=== PATIENT | female | born 1945 | race Caucasian/White ===

== ENCOUNTER 2024-09-02 12:02 | Inpatient (IN) | payer BC, OTHER ==
[~2024-09-02] VITALS: Ht 167.6 cm; Wt 63.0 kg
[~2024-09-02 12:02] MED LIST: BUSP10TA90 PO; FLUT1INH6 IN; MONT5CHW12 PO; OXYB5TAB14 PO; SERT-206 PO; TIOTCAP IN
--- NOTE | 2024-09-02 12:30 | ED.PDOC ---
Altered Mental Status HPI Comments 79-year-old female with PMHx Seizures, COPD brought in by EMS presents with a chief complaint of ALOC. Patient lives in a [facility] facility and is normally A/Ox4 GCS 15 per staff, but was found today to be only alert and awake, but not oriented. Patient responds "yes" to every question being asked of her. Per EMS, they called family whom states that this has happened to patient before and it was because of an UTI. Patient unable to provide further medical information at this time. Chief Complaint: ALOC Time Seen by MD: 12:22 Primary Care Provider: UNKNOWN Reviewed Notes: Nurses Notes, Rehabilitation Team Lead Notes, Medications, Allergies Allergies: Coded Allergies: Tramadol (Verified Allergy, Unknown, 09/02/24) Home Meds Reported Medications Tiotropium [place] Monohydrate (Spiriva Handihaler) 18 Mcg Cap, 18 MCG IN, CAP 04/08/19 Fluticasone Furoate-Vilanterol (Breo Ellipta 200-25 Mcg/INH) 1 Inh Inh, 1 INH IN, INHALER 04/08/19 Montelukast Sodium (Singulair) 5 Mg Chw, 1 TAB PO DAILY, #30 TAB 5 Refills 04/08/19 Sertraline Hcl (Sertraline Hcl) 50 Mg Tab, 75 MG PO DAILY for 30 Days, MG 04/07/19 Buspirone Hcl (Buspirone Hcl) 10 Mg Tab, 7.5 MG PO Q12HR for ANXIETY for 30 Days, MG 04/07/19 Oxybutynin Chloride (Oxybutynin Chloride) 5 Mg Tab, 5 MG PO DAILY, TAB 04/07/19 Information Source: Emergency Med Personnel Mode of Arrival: EMS Severity: Unable to Care for Self Timing: Hours Duration: Since onset Prehospital treatment: None Quality: Change in Behavior Recent: None History of: None Associated Signs and Symptoms: None Past Medical History PAST MEDICAL HISTORY: Asthma, HTN Surgical History: Unobtainable 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 Family History Family History: Unobtainable Social History Smoker: Unobtainable Alcohol: Unobtainable Drugs: Unobtainable Lives In: Assisted Care Constitutional: denies: chills, diaphoresis, fatigue, fever, malaise, sweats, weakness, others EENTM: denies: blurred vision, double vision, ear bleeding, ear discharge, ear drainage, ear pain, ear ringing, eye pain, eye redness, hearing loss, mouth pain, mouth swelling, nasal discharge, nose bleeding, nose congestion, nose pain, photophobia, tearing, throat pain, throat swelling, voice changes, others Respiratory: denies: cough, hemoptysis, orthopnea, SOB at rest, shortness of breath, SOB with excertion, stridor, wheezing, others Cardiovascular: denies: chest pain, dizzy spells, diaphoresis, Dyspnea on exertion, edema, irregular heart beat, left arm pain, lightheadedness, palpitations, PND, syncope, others Gastrointestinal: denies: abdomen distended, abdominal pain, blood streaked bowels, constipated, diarrhea, dysphagia, difficulty swallowing, hematemesis, melena, nausea, poor appetite, poor fluid intake, rectal bleeding, rectal pain, vomiting, others Genitourinary: denies: abnormal vagina bleeding, burning, dyspareunia, dysuria, flank pain, frequency, hematuria, incontinence, pain, , vagina discharge, urgency, others Neurological: denies: dizziness, fainting, headache, left sided numbness, left sided weakness, numbness, paresthesia, pre-existing deficit, right sided numbness, right sided weakness, seizure, speech problems, tingling, tremors, weakness, others Musculoskeletal: denies: back pain, gout, joint pain, joint swelling, muscle pain, muscle stiffness, neck pain, others Integumetry: denies: bruises, change in color, change in hair/nails, dryness, laceration, lesions, lumps, rash, wounds, others Allergic/Immunocompromised: denies: Difficulty Healing, Frequent Infections, Hives, Itching, others Hematologic/Lymphatic: denies: anemia, blood clots, easy bleeding, easy bruising, swollen glands, others Endocrine: denies: excessive hunger, excessive sweating, excessive thirst, excessive urination, flushing, intolerance to cold, intolerance to heat, unexplained weight gain, unexplained weight loss, others Psychiatric: denies: anxiety, bipolar disorder, depression, hopeless, panic disorder, schizophrenia, sleepless, suicidal, others Unable to Obtain due to: Altered Mental Status All Other Systems: Reviewed and Negative Physical Exam General Appearance: Moderate Distress HEENT: Normal ENT Inspection, Pharynx Normal, TMs Normal Neck: Full Range of Motion, Non-Tender, Normal, Normal Inspection Respiratory: Chest Non-Tender, Lungs Clear, No Accessory Muscle Use, No Respiratory Distress, Normal Breath Sounds Cardiovascular: No Edema, No JVD, No Murmur, No Gallop, Normal Peripheral Pulses, Regular Rate/Rhythm Breast Exam: Deferred Gastrointestinal: No Organomegaly, No Pulsatile Mass, Normal Bowel Sounds, Soft, Suprapubic, Tenderness Genitalia: Deferred Pelvic: Deferred Rectal: Deferred Extremities: No calf tenderness, Normal capillary refill, Normal inspection, Normal range of motion, Non-tender, No pedal edema Musculoskeletal : Apperance: Normal 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 Was a procedure done?: No Differential Diagnosis (ALOC) Differential Diagnosis: Dehydration, Other (UTI, sepsis) X-Ray, Labs, Meds, VS Vital Signs Date Time Temp Pulse Resp B/P (MAP) Pulse Ox O2 Delivery O2 Flow Rate FiO2 09/02/24 12:30 88 09/02/24 12:05 98.3 96 18 141/80 (100) 99 Lab Test 09/02/24 15:21 09/02/24 13:21 Range/Units Lactic Acid Level 1.7 2.3 *H 0.4-2.0 mmol/L White Blood Count 12.2 H 4.4-10.8 10^3/uL Red Blood Count 4.10 4.0-5.20 10^6/uL Hemoglobin 13.4 12.2-16.2 g/dL Hematocrit 40.0 36.0-46.0 % Mean Corpuscular Volume 97.5 80.0-100.0 fL Mean Corpuscular Hemoglobin 32.7 H 28.0-32.0 pg Mean Corpuscular Hemoglobin Concent 33.5 32.0-36.0 g/dL Red Cell Distribution Width 13.5 11.8-14.3 % Platelet Count 288 140-450 10^3/uL Mean Platelet Volume 7.5 6.9-10.8 fL Neutrophils (%) (Auto) 88.0 H 37.0-80.0 % Lymphocytes (%) (Auto) 8.8 L 10.0-50.0 % Monocytes (%) (Auto) 2.9 0.0-12.0 % Eosinophils (%) (Auto) 0.1 0.0-7.0 % Basophils (%) (Auto) 0.2 0.0-2.0 % Neutrophils # (Auto) 10.7 H 1.6-8.6 10 ^3/uL Lymphocytes # (Auto) 1.1 0.4-5.4 10 ^3/uL Monocytes # (Auto) 0.4 0-1.3 10 ^3/uL Eosinophils # (Auto) 0 0-0.8 10 ^3/uL Basophils # (Auto) 0 0-0.2 10 ^3/uL Nucleated Red Blood Cells 0.0 % Sodium Level 140 136-145 mmol/L Potassium Level 4.2 3.5-5.1 mmol/L Chloride Level 106 98-107 mmol/L Carbon Dioxide Level 25 20-31 mmol/L Anion Gap 9 5-15 Blood Urea Nitrogen 11 9-23 mg/dL Creatinine 0.81 0.550-1.02 mg/dL Glomerular Filtration Rate Calc 75 >90 mL/min BUN/Creatinine Ratio 13.6 10.0-20.0 Serum Glucose 137 H 74-106 mg/dL Calcium Level 10.3 8.7-10.4 mg/dL Head CT Scan Impression: No evidence of acute intracranial abnormality Chest X-Ray Impression: Pulmonary vascular congestion The CBC shows an elevated white blood cell count of 12.2 The chemistry panel is within normal limits The patient's lactic acid level went from 2.3 down to 1.7 We are continuing the fluids on this patient After the patient had blood cultures x2 drawn the patient was started on Rocephin IV piggyback The patient was being admitted at this time Images Reviewed?: Images reviewed and evaluated by me Time of 1ST Reevaluation: 12:52 Reevaluation 1ST: Unchanged Patient Education/Counseling: Diagnosis, Treatment, Prognosis Family Education/Counseling: Diagnosis, Treatment, Prognosis Departure 1 Departure Time of Disposition: 16:20 Impression: Primary Impression: Altered mental status Qualified Codes: R41.82 - Altered mental status, unspecified Additional Impression: Sepsis secondary to UTI Disposition: ADMITTED INPATIENT Admit to: Tele Condition: Fair Critical Care Note Critical Care Time?: Yes (45 min-critical care time only) Stability Stability form required: Yes Unstable for transfer: Telemetry monitoring (Telemetry monitoring required), ED Physician Assesment (Clinical assesment) Heart Score Heart Score: Heart Score Response (Comments) Value History N/A 0 EKG N/A 0 Age N/A 0 Risk Factors N/A 0 Troponin N/A 0 Total 0 I personally scribed for SONYA DELEON MD ([email or web address]) on 09/02/24 at 12:30. Electronically submitted by Mainor Morales ([email or web address]). I personally scribed for SONYA DELEON MD ([email or web address]) on 09/02/24 at 13:00. Electronically submitted by Mainor Morales ([email or web address]). I personally scribed for SONYA DELEON MD ([email or web address]) on 09/02/24 at 13:03. Electronically submitted by Mainor Morales ([email or web address]). SONYA DELEON MD Sep 02, 2024 12:30
--- NOTE | 2024-09-02 12:58 | DVH ---
EXAM: CT HEAD WITHOUT CONTRAST INDICATION: aloc TECHNIQUE: CT of the head without intravenous contrast. Coronal and sagittal reformatted images are submitted. Radiation Dose : 1. Head: CT Dose: CTDI volume is 53.4 mGy. Dose-length product is 971.9 mGy*cm The dose indicators for CT are the volume Computed Tomography (CT) Dose Index (CTDIvol) and the Dose Length Product (DLP), and are measured in units of mGy and mGy-cm, respectively. These indicators are not patient dose, but values generated from the CT scanner acquisition factors. The report includes radiation exposure data for exposures received during this examination. All CT scans at this medical facility are performed using dose modulation techniques as appropriate to a performed exam including the following: Automated exposure control was utilized; adjustment of the MA and/or KV according to patient size; and use of iterative reconstruction technique. COMPARISON: None FINDINGS: There is no evidence of acute intracranial hemorrhage, extra-axial collection, mass effect, midline s hift, herniation or hydrocephalus. The ventricles, sulci and cisterns are age appropriate. The rangel-white differentiation is intact. The visualized paranasal sinuses and mastoid air cells are clear. No depressed calvarial fracture. The surrounding soft tissues are unremarkable. IMPRESSION: 1. No evidence of acute intracranial abnormality.
--- NOTE | 2024-09-02 13:01 | DVH ---
CHEST RADIOGRAPH Indication: aloc Technique: Single frontal view of the chest was obtained COMPARISON: None FINDINGS: Lines and Tubes: None Lungs: Congestion Pleura: No effusion. No pneumothorax. Cardiomediastinal contours: Unremarkable Bones: Unremarkable IMPRESSION: Pulmonary vascular congestion
[2024-09-02 13:43] LABS: Basophils # (auto) 0 10 ^3/uL (0-0.2); Basophils % (auto) 0.2 % (0.0-2.0); Eosinophils # (auto) 0 10 ^3/uL (0-0.8); Eosinophils % (auto) 0.1 % (0.0-7.0); Hemoglobin 13.4 g/dL (12.2-16.2); Lymphocytes # (auto) 1.1 10 ^3/uL (0.4-5.4); Lymphocytes % (auto) 8.8 % (10.0-50.0); Mean Corpuscular Hemoglobin 32.7 pg (28.0-32.0); Mean Corpuscular Hgb Conc. 33.5 g/dL (32.0-36.0); Mean Corpuscular Volume 97.5 fL (80.0-100.0); Monocytes # (auto) 0.4 10 ^3/uL (0-1.3); Monocytes % (auto) 2.9 % (0.0-12.0); Neutrophils # (auto) 10.7 10 ^3/uL (1.6-8.6); Platelet Count (auto) 288 10^3/uL (140-450); Red Cell Distribution Width 13.5 % (11.8-14.3); White Blood Cell 12.2 10^3/uL (4.4-10.8)
[2024-09-02 13:49] LABS: Chloride 106 mmol/L (98-107); Potassium 4.2 mmol/L (3.5-5.1); Sodium 140 mmol/L (136-145)
[2024-09-02 13:50] LABS: Anion Gap 9 (5-15); Calcium 10.3 mg/dL (8.7-10.4); Carbon Dioxide 25 mmol/L (20-31)
[2024-09-02 13:55] LABS: BUN/Creatinine Ratio 13.6 (10.0-20.0); Blood Urea Nitrogen 11 mg/dL (9-23)
[2024-09-02 13:56] LABS: Glucose 137 mg/dL (74-106)
[2024-09-02 14:05] LABS: Lactic Acid w/Reflex 2.3 mmol/L (0.4-2.0)
[2024-09-02] MEDS ORDERED: NITROGLYCERIN 0.4 MG SL TAB SL PRN (18:00)
[2024-09-02] MEDS ORDERED: MORPHINE SULFATE INJ 2 MG/ml SYRG IV PRN (18:00)
--- NOTE | 2024-09-02 18:02 | DVHHP2 ---
Admitting Diagnosis: Admission date :09/02/24 AL History of Present Illness Patient is a 79-year-old female with a previous medical history of COPD and seizures was brought by EMS today with a CC of ALOC. Per staff at [facility] the patient lives at patient is normally A/O x 4 GCS 15 but was found today to only be alert and awake not oriented. Patient responds "yes" to every question being asked to her. EMS called family who states that something similar has happened to her in the past and it was due to UTI. Patient unable provide any other information at this time. While in the emergency department the patient was evaluated by the provider, As per provider: Labs, vital signs, and imagining monitored. Patient will be admitted for further evaluation and treatment. I discussed admission with the patient/family and is in agreement to treatment plan Allergies: Coded Allergies: Tramadol (Verified Allergy, Unknown, 09/02/24) Home Meds Reported Medications Fexofenadine-Pseudoephedrine (MARIA C-D 24 HOUR ALLERGY) 24 Hour Tab, 24 HOUR PO DAILY, TAB 09/02/24 Famotidine (PEPCID TABLET) 20 Mg Tb, 20 MG PO DAILY, TAB 09/02/24 Midodrine Hcl (Midodrine Hcl) 2.5 Mg Tab, 1 TAB PO BID 09/02/24 Sertraline Hcl (Sertraline Hcl) 100 Mg Tab, 1 TAB PO DAILY 09/02/24 Montelukast Sodium (MONTELUKAST SODIUM) 10 Mg Tab, 1 TAB PO DAILY 09/02/24 Solifenacin Succinate (Solifenacin Succinate) 10 Mg Tab, 5 MG PO DAILY 09/02/24 Levetiracetam (Levetiracetam) 1,000 Mg Tab, 1000 MG PO BID 09/02/24 Tiotropium [place] Monohydrate (Spiriva Handihaler) 18 Mcg Cap, 18 MCG IN DAILY, CAP 04/08/19 Fluticasone Furoate-Vilanterol (Breo Ellipta 200-25 Mcg/INH) 1 Inh Inh, 1 PUFF IN DAILY, INHALER 04/08/19 Buspirone Hcl (Buspirone Hcl) 10 Mg Tab, 7.5 MG PO Q12HR for ANXIETY for 30 Days, MG 04/07/19 Current Medications Current Medications Medications (Trade) Dose Ordered Sig/Jaime Route PRN Reason Start Time Stop Time Status Last Admin Enoxaparin Sodium (Lovenox) 40 mg DAILY SC 09/03/24 10:00 09/03/24 10:03 Lorazepam (Ativan Inj) 1 mg Q5MINP PRN IV SEIZURES 09/02/24 21:00 Lorazepam (Ativan Inj) 1 mg ONCE PRN IV MRI 09/02/24 21:00 Pantoprazole Sodium (Protonix) 40 mg DAILY IV 09/03/24 16:30 09/03/24 18:32 Buspirone HCl (Buspar Tablet) 7.5 mg Q12HR PO 09/03/24 22:00 Sertraline HCl (Zoloft) 100 mg DAILY PO 09/04/24 10:00 Patient Own Medication 5 mg DAILY PO 09/04/24 10:00 09/03/24 18:41 DC Ipratropium [place] (Atrovent Medneb) 0.5 mg Q6HR NEB 09/04/24 00:00 Oxybutynin Chloride (Ditropan Tablet) 5 mg BID PO 09/03/24 22:00 Review of Systems Constitutional: denies chills, denies fever, denies malaise Eyes: denies eye pain, denies vision change ENT: denies ear pain, denies headache, denies nasal congestion, denies painful swallowing, denies voice change Cardiovascular: denies chest pain, denies edema, denies orthopnea, denies palpitations, denies paroxysmal nocturnal dyspnea Respiratory: denies cough, denies shortness of breath Gastrointestinal: denies constipation, denies diarrhea, denies nausea, denies vomiting Genitourinary: denies dysuria, denies frequent urination, denies urethral discharge Musculoskeletal: denies back pain, denies joint pain, denies muscle pain Skin: denies bruising, denies itching, denies rash Neurological: denies focal weakness, denies headache, denies sensory changes Psychiatric: denies anxiety, denies depression Endocrine: denies polydipsia, denies polyuria Hematologic/Lymphatic: denies easy bleeding, denies easy bruising, denies enlarged lymph nodes Allergic/Immunologic: denies allergy, denies hives Vital Signs Vital Signs Date Time Temp Pulse Resp B/P (MAP) Pulse Ox O2 Delivery O2 Flow Rate FiO2 09/03/24 17:00 98.8 101 21 108/64 (79) 100 98.8 09/03/24 08:20 Nasal Cannula* 2 28 Physical Exam General Appearance: alert, no distress HEENT: EOMI, PERRLA, normal external inspect of ears, no icterus, no nasal drainage Neck: no carotid bruit, no jugular venous distention (JVD), no lymphadenopathy Chest: normal thorax Respiratory: clear to auscultation, normal air movement Cardiovascular: regular rate and rhythm, no diastolic murmur, no jugular venous distention (JVD), no rub, no systolic murmur Abdominal: soft, no hepatomegaly, no mass, no splenomegaly, no tenderness Genitourinary: grossly normal external Musculoskeletal: no joint tenderness, no swelling Extremities: normal pulses, no calf tenderness, no clubbing, no cyanosis, no edema Skin: no bruising, no jaundice, no rash Neurological: alert, No focal deficit Results Labs Test 09/03/24 05:08 09/02/24 20:08 09/02/24 17:57 09/02/24 15:21 Range/Units White Blood Count 12.2 H 4.4-10.8 10^3/uL Red Blood Count 4.16 4.0-5.20 10^6/uL Hemoglobin 13.4 12.2-16.2 g/dL Hematocrit 40.7 36.0-46.0 % Mean Corpuscular Volume 97.9 80.0-100.0 fL Mean Corpuscular Hemoglobin 32.2 H 28.0-32.0 pg Mean Corpuscular Hemoglobin Concent 32.9 32.0-36.0 g/dL Red Cell Distribution Width 13.6 11.8-14.3 % Platelet Count 269 140-450 10^3/uL Mean Platelet Volume 7.7 6.9-10.8 fL Neutrophils (%) (Auto) 88.0 H 37.0-80.0 % Lymphocytes (%) (Auto) 6.0 L 10.0-50.0 % Monocytes (%) (Auto) 4.7 0.0-12.0 % Eosinophils (%) (Auto) 0.1 0.0-7.0 % Basophils (%) (Auto) 1.2 0.0-2.0 % Neutrophils # (Auto) 10.8 H 1.6-8.6 10 ^3/uL Lymphocytes # (Auto) 0.7 0.4-5.4 10 ^3/uL Monocytes # (Auto) 0.6 0-1.3 10 ^3/uL Eosinophils # (Auto) 0 0-0.8 10 ^3/uL Basophils # (Auto) 0.1 0-0.2 10 ^3/uL Nucleated Red Blood Cells 0.0 % Sodium Level 141 136-145 mmol/L Potassium Level 3.7 3.5-5.1 mmol/L Chloride Level 105 98-107 mmol/L Carbon Dioxide Level 25 20-31 mmol/L Anion Gap 11 5-15 Blood Urea Nitrogen 10 9-23 mg/dL Creatinine 0.79 0.550-1.02 mg/dL Glomerular Filtration Rate Calc 77 >90 mL/min BUN/Creatinine Ratio 12.7 10.0-20.0 Serum Glucose 153 H 74-106 mg/dL Hemoglobin A1c < 4.0 <5.7 % A1C Calcium Level 9.5 8.7-10.4 mg/dL Total Bilirubin 0.5 0.2-1.0 mg/dL Aspartate Amino Transferase (AST) 25 13-40 U/L Alanine Aminotransferase (ALT) 13 7-40 U/L Alkaline Phosphatase 70 46-116 U/L Total Protein 6.9 5.7-8.2 g/dL Albumin 4.6 3.2-4.8 g/dL POC Glucose 166 H 70-106 mg/dl Urine Color Yellow Yellow Urine Clarity Clear Clear Urine pH 6.0 5.0-9.0 Urine Specific [place] 1.020 1.001-1.035 Urine Protein Negative Negative Urine Ketones 2+ H Negative Urine Blood Negative Negative /uL Urine Nitrite Negative Negative Urine Bilirubin Negative Negative Urine Urobilinogen Normal Negative mg/dL Urine Leukocyte Esterase Negative Negative /uL Urine RBC <1 0 - 4 /hpf Urine Microscopic WBC < 1 0-5 /HPF Urine Squamous Epithelial Cells Few <5 /hpf Urine Bacteria None seen None Seen /hpf Urine Mucus Few None Seen Urine Glucose Normal Normal mg/dL Lactic Acid Level 1.7 0.4-2.0 mmol/L Microbiology Date/Time Source Procedure Growth Status 09/02/24 17:57 Urine - Catheterized Urine Culture - Preliminary Resulted 09/02/24 13:21 Blood Blood Culture - Preliminary NO GROWTH AFTER 24 HOURS OF INCUBATION. Resulted Plan 1. ALOC Plan: Monitor, neurology consult 2. Metabolic encephalopathy Plan: Monitor, CT brain, EEG, MRI of brain 3. Status epileptics Plan: Monitor, UA 4. Subclinical seizure Plan: Monitor, antiepileptics 5. Acute cystitis without hematuria Plan: Monitor, PPI,, DVT relaxes 6. Lactic acidosis most likely from seizure Plan: Monitor Plan discussed with: Patient, Other LIBBY GLASER NP Sep 02, 2024 18:02
[2024-09-02 18:20] LABS: Urine Bacteria None Seen /hpf (None Seen)
[2024-09-02 18:29] LABS: Urine Blood Negative /uL (Negative); Urine Clarity Clear (Clear); Urine Color Yellow (Yellow); Urine Mucus FEW (None Seen); Urine Protein, UAD Negative (Negative); Urine Squamous Epithelial Cell FEW /hpf (<5); Urine Urobilinogen Normal (Negative); Urine WBC < 1 /HPF (0-5)
[2024-09-02] MEDS: levETIRAcetam 1000 mg/100ml 100 ML IV SCH (18:31)
[2024-09-02] MEDS: cefTRIAXone 1GM/50ML D5W 50 ML IV SCH (18:31)
[2024-09-02 18:42] VITALS: PULSE 116; RESP 23; O2SAT 93
--- NOTE | 2024-09-02 19:05 | ECG ---
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
[2024-09-02 19:49] VITALS: PULSE 114; RESP 15; O2SAT 95
--- NOTE | 2024-09-02 19:59 | DVHINCON2 ---
Date of service: Sep 02, 2024 Referring Physician Tiffany Reason for Consultation ALOC History of Present Illness Ms. Ivory is a 79 years old female with a history of hypertension, asthma, the patient was brought to the [facility] on 09/02/2024 with a chief company of altered mental status, at that time, she was awake, possibly responds to verbal stimuli, but she does not follow, she does not vocalize, the history is obtained from her niece, who is the [id number], I have also talked to her nurse and reviewed the chart Baseline of this lady is mentally normal, she lives in a senior facility, she was able to use iPad to text message and the last time she communicated her niece was 09/01/2024 7:45 p.m. because she did not respond to her niece, her niece request the director of the facility to check on her and she was found to be mentally altered, mumble voice. Since 2019, this is the 7th similar event. The patient was can be mentally altered very quickly, but this no convulsion noticed, the patient was went through MRI in the lot of testing, but etiology remains on other identified, seizure was suspected and she has been on Keppra 1000 mg [address] She sees Dr. Rodriguez, a local neurologist BUN/CR, 09/02/2024: WBC: 1, urine leukocyte esterase: Negative WBC/HB/PLT/MCV, 09/02/2024: 12.2/13.4/288/97.5 BMP, 09/02/2024: Unremarkable Glucose, 09/02/2024: 137 Lactic acid, 09/02/2024: 2.3/1.7 Chest x-ray, 09/02/2024: Pulmonary vascular congestion CT head, 09/02/2024: No evidence of acute intracranial abnormality Past Medical History Hypertension, asthma Past Surgical History Knee replacement, lumbar spine surgery x 3, pain stimulator for bowel and bladder her control Family History Longevity Social History She is not a tobacco smoker, no history of alcohol or recreational substance abuse Allergies: Coded Allergies: Tramadol (Verified Allergy, Unknown, 09/02/24) Home Meds Reported Medications Tiotropium Tropic Monohydrate (Spiriva Handihaler) 18 Mcg Cap, 18 MCG IN, CAP 04/08/19 Fluticasone Furoate-Vilanterol (Breo Ellipta 200-25 Mcg/INH) 1 Inh Inh, 1 INH I N, INHALER 04/08/19 Montelukast Sodium (Singulair) 5 Mg Chw, 1 TAB PO DAILY, #30 TAB 5 Refills 04/08/19 Sertraline Hcl (Sertraline Hcl) 50 Mg Tab, 75 MG PO DAILY for 30 Days, MG 04/07/19 Buspirone Hcl (Buspirone Hcl) 10 Mg Tab, 7.5 MG PO Q12HR for ANXIETY for 30 Days, MG 04/07/19 Oxybutynin Chloride (Oxybutynin Chloride) 5 Mg Tab, 5 MG PO DAILY, TAB 04/07/19 Current Medications Current Medications Medications (Trade) Dose Ordered Sig/Jaime Route PRN Reason Start Time Stop Time Status Last Admin Acetaminophen/ Hydrocodone Bitart ([place] 5/325MG Tab) 1 tab Q4HP PRN PO MODERATE PAIN (4-6 PAIN SCALE) 09/02/24 18:00 Enoxaparin Sodium (Lovenox) 40 mg DAILY SC 09/03/24 10:00 Acetaminophen (Tylenol Tablet) 650 mg Q6HP PRN PO PAIN SCALE 1-3 OR TEMP>100.4 09/02/24 18:00 Nitroglycerin (Ntrostat Sublingual) 0.4 mg Q5MINP PRN SL FOR CHEST PAIN 09/02/24 18:00 Morphine Sulfate 2 mg Q30M PRN IV FOR CHEST PAIN 09/02/24 18:00 Ceftriaxone Sodium 50 ml @ 100 mls/hr DAILY IV 09/02/24 18:00 09/02/24 18:31 Levetiracetam 100 ml @ 400 mls/hr Q12H IV 09/02/24 18:21 09/02/24 18:31 Review of Systems As above, the other systems are Vital Signs Vital Signs Date Time Temp Pulse Resp B/P (MAP) Pulse Ox O2 Delivery O2 Flow Rate FiO2 09/02/24 18:45 116 23 116/62 (80) 93 09/02/24 18:42 Room Air* 0 21 09/02/24 15:52 97.8 97.8 Physical Exam GENERAL EXAM: General: the patient is well developed and nourished. No acute distress. HEENT: Normocephalic, neck is supple, no carotid bruits. No mass. RESPIRATORY: Normal respiratory effort with symmetrical lung expansion. Lungs clear to auscultation. CARDIOVASCULAR: Regular rate and rhythm with no murmurs. S1, S2. ABDOMEN: Soft, nontender, normal bowel sound NEUROLOGICAL: MENTAL STATUS: HPI SPEECH, LANGUAGE, HIGHER CORTICAL FUNCTION: HPI CRANIAL NERVES: #2: Intact visual blake to confrontation. #3,4,6: Pupils are equal, round and reactive. EOMs full and conjugate. No nyst agmus. #5: Facial sensation intact in all three divisions bilaterally. Mandibular strength intact. #7: Facial muscles symmetrical and strength intact. #8: Deferred. #9,10: Deferred #11: Deferred #12: Tongue midline. No fasciculations or atrophy. SENSATION: Responds to light touch MOTOR: Normal tone in the upper and lower extremity. Normal muscle bulk. No fasciculations. No abnormal movements or posturing. Move the arms and legs a little bit REFLEXES: Deep tendon reflexes normal and symmetrical. No pathological reflexes. CEREBELLAR/COORDINATION: Deferred GAIT/STATION: deferred. Labs/Diagnostic Data Labs Test 09/02/24 17:57 09/02/24 15:21 09/02/24 13:21 Range/Units Urine Color Yellow Yellow Urine Clarity Clear Clear Urine pH 6.0 5.0-9.0 Urine Specific [place] 1.020 1.001-1.035 Urine Protein Negative Negative Urine Ketones 2+ H Negative Urine Blood Negative Negative /uL Urine Nitrite Negative Negative Urine Bilirubin Negative Negative Urine Urobilinogen Normal Negative mg/dL Urine Leukocyte Esterase Negative Negative /uL Urine RBC <1 0 - 4 /hpf Urine Microscopic WBC < 1 0-5 /HPF Urine Squamous Epithelial Cells Few <5 /hpf Urine Bacteria None seen None Seen /hpf Urine Mucus Few None Seen Urine Glucose Normal Normal mg/dL Lactic Acid Level 1.7 0.4-2.0 mmol/L White Blood Count 12.2 H 4.4-10.8 10^3/uL Red Blood Count 4.10 4.0-5.20 10^6/uL Hemoglobin 13.4 12.2-16.2 g/dL Hematocrit 40.0 36.0-46.0 % Mean Corpuscular Volume 97.5 80.0-100.0 fL Mean Corpuscular Hemoglobin 32.7 H 28.0-32.0 pg Mean Corpuscular Hemoglobin Concent 33.5 32.0-36.0 g/dL Red Cell Distribution Width 13.5 11.8-14.3 % Platelet Count 288 140-450 10^3/uL Mean Platelet Volume 7.5 6.9-10.8 fL Neutrophils (%) (Auto) 88.0 H 37.0-80.0 % Lymphocytes (%) (Auto) 8.8 L 10.0-50.0 % Monocytes (%) (Auto) 2.9 0.0-12.0 % Eosinophils (%) (Auto) 0.1 0.0-7.0 % Basophils (%) (Auto) 0.2 0.0-2.0 % Neutrophils # (Auto) 10.7 H 1.6-8.6 10 ^3/uL Lymphocytes # (Auto) 1.1 0.4-5.4 10 ^3/uL Monocytes # (Auto) 0.4 0-1.3 10 ^3/uL Eosinophils # (Auto) 0 0-0.8 10 ^3/uL Basophils # (Auto) 0 0-0.2 10 ^3/uL Nucleated Red Blood Cells 0.0 % Sodium Level 140 136-145 mmol/L Potassium Level 4.2 3.5-5.1 mmol/L Chloride Level 106 98-107 mmol/L Carbon Dioxide Level 25 20-31 mmol/L Anion Gap 9 5-15 Blood Urea Nitrogen 11 9-23 mg/dL Creatinine 0.81 0.550-1.02 mg/dL Glomerular Filtration Rate Calc 75 >90 mL/min BUN/Creatinine Ratio 13.6 10.0-20.0 Serum Glucose 137 H 74-106 mg/dL Calcium Level 10.3 8.7-10.4 mg/dL Assessment Altered mental status Metabolic encephalopathy Status epileptics Subclinical seizure Other central nervous system etiology Lactic acidosis Plan/Recommendation Monitoring Supportive treatment Telemetry UDS EEG MR brain scan Keppra 1000 mg b.i.d. Ativan for seizure breakthrough More recommendation per clinical course Progress: Poor This medical document was created using an electronic medical record system with [employer] dictation system. Although this document has been carefully reviewed, there may still be some phonetic and typographical errors. These areas are purely typographical due to imperfections of the software programs, and do not reflect any compromise in the patient's medical care. Plan discussed with: Other TYREL SCOTT MD Sep 02, 2024 19:59
[2024-09-02] MEDS ORDERED: LORazepam 2MG/ML-1ML VIAL IV PRN ×2 (21:00)
[2024-09-02] MEDS ORDERED: LEVE100020 PO (22:05)
[2024-09-02] MEDS ORDERED: SERT-160 PO (22:05)
[2024-09-02] MEDS ORDERED: MIDO2.5T3 PO (22:05)
[2024-09-02] MEDS ORDERED: MONT-8 PO (22:05)
[2024-09-02] MEDS ORDERED: SOLI10TA39 PO (22:05)
[2024-09-02] MEDS ORDERED: FEXO24TA10 PO (22:07)
[2024-09-02] MEDS ORDERED: FAMO20TA10 PO (22:07)
[2024-09-02 22:30] VITALS: BP 136/74; PULSE 105; RESP 20; TEMP 97.8; O2SAT 94
[2024-09-03] VITALS (7 sets, daily range): BP systolic 108–134; BP diastolic 64–71; PULSE 96–106; RESP 20–21; TEMP 97.7–100.4; O2SAT 94–100
[2024-09-03 06:03] LABS: Basophils # (auto) 0.1 10 ^3/uL (0-0.2); Basophils % (auto) 1.2 % (0.0-2.0); Eosinophils # (auto) 0 10 ^3/uL (0-0.8); Eosinophils % (auto) 0.1 % (0.0-7.0); Hematocrit 40.7 % (36.0-46.0); Hemoglobin 13.4 g/dL (12.2-16.2); Lymphocytes # (auto) 0.7 10 ^3/uL (0.4-5.4); Mean Corpuscular Hemoglobin 32.2 pg (28.0-32.0); Mean Corpuscular Hgb Conc. 32.9 g/dL (32.0-36.0); Mean Corpuscular Volume 97.9 fL (80.0-100.0); Monocytes # (auto) 0.6 10 ^3/uL (0-1.3); Monocytes % (auto) 4.7 % (0.0-12.0); Neutrophils # (auto) 10.8 10 ^3/uL (1.6-8.6); Platelet Count (auto) 269 10^3/uL (140-450); Red Blood Cells 4.16 10^6/uL (4.0-5.20); Red Cell Distribution Width 13.6 % (11.8-14.3); White Blood Cell 12.2 10^3/uL (4.4-10.8)
[2024-09-03 06:26] LABS: Alanine Aminotransferase 13 U/L (7-40); Albumin 4.6 g/dL (3.2-4.8); Alkaline Phosphatase 70 U/L (46-116); Anion Gap 11 (5-15); Aspartate Aminotransferase 25 U/L (13-40); BUN/Creatinine Ratio 12.7 (10.0-20.0); Bilirubin, Total 0.5 mg/dL (0.2-1.0); Blood Urea Nitrogen 10 mg/dL (9-23); Calcium 9.5 mg/dL (8.7-10.4); Carbon Dioxide 25 mmol/L (20-31); Chloride 105 mmol/L (98-107); Glucose 153 mg/dL (74-106); Potassium 3.7 mmol/L (3.5-5.1); Sodium 141 mmol/L (136-145); Total Protein 6.9 g/dL (5.7-8.2)
[2024-09-03] MEDS: ENOXAPARIN SOD 40 MG/0.4 ML SYRINGE SC SCH (10:03)
--- NOTE | 2024-09-03 16:22 | DVHPN2 ---
Progress Note - Dictate Date Seen: Sep 03, 2024 Medical Necessity Reason Pt with a Central, PICC or Fol: No vital signs Vital Sign Date Time Temp Pulse Resp B/P (MAP) Pulse Ox O2 Delivery O2 Flow Rate FiO2 09/03/24 08:20 103 09/03/24 08:20 Nasal Cannula* 2 28 09/03/24 07:30 98.9 98.9 09/03/24 05:00 20 121/65 (83) 96 Total Intake and Output 09/02/24 09/02/24 09/03/24 15:00 23:00 07:00 Intake Total 500 ml 0 ml Output Total 700 ml Balance 500 ml -700 ml medications Current Medications Medications Dose Ordered Sig/Jaime Route Start Time Stop Time Status Last Admin Dose Admin Acetaminophen/ Hydrocodone Bitart 1 tab Q4HP PRN PO 09/02/24 18:00 Enoxaparin Sodium 40 mg DAILY SC 09/03/24 10:00 09/03/24 10:03 40 MG Acetaminophen 650 mg Q6HP PRN PO 09/02/24 18:00 Nitroglycerin 0.4 mg Q5MINP PRN SL 09/02/24 18:00 Morphine Sulfate 2 mg Q30M PRN IV 09/02/24 18:00 Ceftriaxone Sodium 50 ml @ 100 mls/hr DAILY IV 09/02/24 18:00 09/03/24 10:02 100 MLS/HR Levetiracetam 100 ml @ 400 mls/hr Q12H IV 09/02/24 18:21 09/03/24 05:41 400 MLS/HR Lorazepam 1 mg Q5MINP PRN IV 09/02/24 21:00 Lorazepam 1 mg ONCE PRN IV 09/02/24 21:00 objective General Appearance: alert, no distress HEENT: EOMI, PERRLA, normal external inspect of ears, no icterus, no nasal drainage Neck: no carotid bruit, no jugular venous distention (JVD), no lymphadenopathy Chest: normal thorax Respiratory: clear to auscultation, normal air movement Cardiovascular: regular rate and rhythm, no diastolic murmur, no jugular venous distention (JVD), no rub, no systolic murmur Abdominal: soft, no hepatomegaly, no mass, no splenomegaly, no tenderness Genitourinary: grossly normal external Musculoskeletal: no joint tenderness, no swelling Extremities: normal pulses, no calf tenderness, no clubbing, no cyanosis, no edema Skin: no bruising, no jaundice, no rash Neurological: alert, No focal deficit laboratory and microbiology Laboratory Tests 09/03/24 05:08 Test 09/03/24 05:08 Range/Units Serum Glucose 153 H 74-106 mg/dL Problem List 1. ALOC Plan: Monitor, neurology consult 2. Metabolic encephalopathy Plan: Monitor, CT brain, EEG, MRI of brain 3. Status epileptics Plan: Monitor, UA 4. Subclinical seizure Plan: Monitor, antiepileptics 5. Acute cystitis without hematuria Plan: Monitor, PPI,, DVT relaxes 6. Lactic acidosis most likely from seizure Plan: Monitor Assessment/Plan Subjective: Patient is very lethargic, however, she is able to open her eyes and is able to nod her head yes and no. Objective: Patient was admitted for ALOC. Patient lives at an assisted living facility. Patient was seen by neurology, sepsis was ruled out. Lactic acidosis most likely related to a breakthrough seizure. Patient is now more awake and alert. Plan: Patient to increase oral intake, continue anti-epileptic seizure precautions. Plan for EEG. Plan discussed with: Patient, Other LIBBY GLASER NP Sep 03, 2024 16:22
[2024-09-03] MEDS: PANTOPRAZOLE 40 MG/10 ML VIAL INJ IV SCH (18:32)
--- NOTE | 2024-09-03 20:49 | DVHPN2 ---
Progress Note - Dictate Date Seen: Sep 03, 2024 Medical Necessity Reason Pt with a Central, PICC or Fol: Yes The following are medically ne: Guzman Catheter Subjective Ms. Ivory is a 79 years old female with a history of hypertension, asthma, the patient was brought to the [facility] on 09/02/2024 with a chief company of altered mental status, I have seen and examined the patient, I have talked to her nurse and sitter, she was better, she was awake, she was responsive to verbal stimuli, she can mumble single words occasionally, but mostly she was not able to follow, she was not able to answer any questions She sees Dr. Rodriguez, a local neurologist Urinalysis, 09/02/2024: Unremarkable BUN/CR, 09/02/2024: WBC: 1, urine leukocyte esterase: Negative WBC/HB/PLT/MCV, 09/02/2024: 12.2/13.4/288/97.5 BMP, 09/02/2024: Unremarkable CMP, 09/03/2024: Unremarkable Glucose, 09/02/2024: 137 HGB A1c, 09/03/2024: For Lactic acid, 09/02/2024: 2.3/1.7 Chest x-ray, 09/02/2024: Pulmonary vascular congestion CT head, 09/02/2024: No evidence of acute intracranial abnormality vital signs Vital Sign Date Time Temp Pulse Resp B/P (MAP) Pulse Ox O2 Delivery O2 Flow Rate FiO2 09/03/24 17:00 98.8 101 21 108/64 (79) 100 98.8 09/03/24 08:20 Nasal Cannula* 2 28 Total Intake and Output 09/02/24 09/02/24 09/03/24 15:00 23:00 07:00 Intake Total 500 ml 0 ml Output Total 700 ml Balance 500 ml -700 ml medications Current Medications Medications Dose Ordered Sig/Jaime Route Start Time Stop Time Status Last Admin Dose Admin Acetaminophen/ Hydrocodone Bitart 1 tab Q4HP PRN PO 09/02/24 18:00 Enoxaparin Sodium 40 mg DAILY SC 09/03/24 10:00 09/03/24 10:03 40 MG Acetaminophen 650 mg Q6HP PRN PO 09/02/24 18:00 Nitroglycerin 0.4 mg Q5MINP PRN SL 09/02/24 18:00 Morphine Sulfate 2 mg Q30M PRN IV 09/02/24 18:00 Ceftriaxone Sodium 50 ml @ 100 mls/hr DAILY IV 09/02/24 18:00 09/03/24 10:02 100 MLS/HR Levetiracetam 100 ml @ 400 mls/hr Q12H IV 09/02/24 18:21 09/03/24 18:32 400 MLS/HR Lorazepam 1 mg Q5MINP PRN IV 09/02/24 21:00 Lorazepam 1 mg ONCE PRN IV 09/02/24 21:00 Pantoprazole Sodium 40 mg DAILY IV 09/03/24 16:30 09/03/24 18:32 40 MG Buspirone HCl 7.5 mg Q12HR PO 09/03/24 22:00 Sertraline HCl 100 mg DAILY PO 09/04/24 10:00 Ipratropium [place] 0.5 mg Q6HR NEB 09/04/24 00:00 Oxybutynin Chloride 5 mg BID PO 09/03/24 22:00 objective General: the patient is well developed and nourished. No acute distress. MENTAL STATUS: Subjective SPEECH, LANGUAGE, HIGHER CORTICAL FUNCTION: Subjective CRANIAL NERVES: Pupils are equal, round and reactive. EOMs full and conjugate. No nystagmus. Facial sensation intact in all three divisions bilaterally. Mandibular strength intact. Facial muscles symmetrical and strength intact. SENSATION: Responds to light touch MOTOR: Normal tone in the upper and lower extremity. Normal muscle bulk. No fasciculations. No abnormal movements or posturing. Move the arms and legs REFLEXES: Deep tendon reflexes normal and symmetrical. No pathological reflexes. CEREBELLAR/COORDINATION: Deferred GAIT/STATION: deferred. laboratory and microbiology Laboratory Tests 09/03/24 05:08 Test 09/03/24 05:08 Range/Units Serum Glucose 153 H 74-106 mg/dL Problem List Altered mental status Metabolic encephalopathy Status epileptics Subclinical seizure Other central nervous system etiology Lactic acidosis Assessment/Plan Monitoring Supportive treatment Telemetry Vitamin B12, folic acid, TSH UDS EEG MR brain scan Keppra 1000 mg b.i.d. Ativan for seizure breakthrough More recommendation per clinical course This medical document was created using an electronic medical record system with [employer] dictation system. Although this document has been carefully reviewed, there may still be some phonetic and typographical errors. These areas are purely typographical due to imperfections of the software programs, and do not reflect any compromise in the patient's medical care. Prognosis poor Plan discussed with: Other Total Time (mins): 35 TYREL SCOTT MD Sep 03, 2024 20:49
[2024-09-03] MEDS: busPIRone HCL 10 MG TAB PO SCH (21:07)
[2024-09-03] MEDS: OXYBUTYNIN CHL 5 MG TAB PO SCH (21:08)
[2024-09-03 21:51] LABS: Free T4 (Free Thyroxine) 0.8 ng/dL (0.89-1.76)
[2024-09-03 22:23] LABS: Folate (Folic Acid) 35.84 ng/mL (>5.38)
[2024-09-04] VITALS (16 sets, daily range): BP systolic 108–128; BP diastolic 63–75; PULSE 93–109; RESP 16–22; TEMP 97.5–98.9; O2SAT 96–100
[2024-09-04] MEDS: IPRATROPIUM BROM 0.5 MG/2.5ML INH SOL NEB SCH (00:10)
[2024-09-04] MEDS: SERTRALINE HCL 50 MG TAB PO SCH (09:11)
[2024-09-04] MEDS ORDERED: Solifenacin Succinate 5 MG PO SCH (10:00)
--- NOTE | 2024-09-04 18:06 | DVHEEG2 ---
Neurology EEG Procedural Note Procedural Note EXAM DATE: 09/04/2024 REFERRING DOCTOR: Dr. Scott TECHNIQUE: Eighteen channels of EEG, 2 channels of EOG, and 1 channel of EKG were recorded using the International 10/20 system. CLINICAL DATA: The patient was referred for an EEG evaluation for the evidence of seizure disorder. MEDICATIONS: See the chart BACKGROUND ACTIVITY: The record showed low-amplitude semirhythmic theta activity over both hemispheres, that was reactive to external stimuli, intermixed with this was frequent low amplitude sharp and spike waves in the right hemisphere. ACTIVATION: Hyperventilation: Not done Photic Stimulation: Not done Sleep: Not seen IMPRESSION: This is an abnormal EEG with evidence of epileptiform discharge from the right hemispheres, please correlate clinically and consider CT/MRI brain scan to rule out an intracranial structural lesion The EKG channel showed a regular heart rate of 108 per minute [place] [address] TYREL SCOTT MD Sep 04, 2024 18:06
--- NOTE | 2024-09-04 18:33 | DVHPN2 ---
Progress Note - Dictate Date Seen: Sep 04, 2024 Medical Necessity Reason Pt with a Central, PICC or Fol: Yes The following are medically ne: Guzman Catheter Subjective Ms. Ivory is a 79 years old female with a history of hypertension, asthma, the patient was brought to the [facility] on 09/02/2024 with a chief company of altered mental status, I have seen and examined the patient, I have talked to her nurse and sitter, she is better, she is awake, she talks more, but is only oriented to herself, no seizure activity Urinalysis, 09/02/2024: Unremarkable BUN/CR, 09/02/2024: WBC: 1, urine leukocyte esterase: Negative WBC/HB/PLT/MCV, 09/02/2024: 12.2/13.4/288/97.5 BMP, 09/02/2024: Unremarkable CMP, 09/03/2024: Unremarkable Glucose, 09/02/2024: 137 HGB A1c, 09/03/2024: For Lactic acid, 09/02/2024: 2.3/1.7 EEG, 09/04/24: Epileptiform discharge from the right hemisphere Chest x-ray, 09/02/2024: Pulmonary vascular congestion CT head, 09/02/2024: No evidence of acute intracranial abnormality vital signs Vital Sign Date Time Temp Pulse Resp B/P (MAP) Pulse Ox O2 Delivery O2 Flow Rate FiO2 09/04/24 17:00 98.1 108 16 108/63 (78) 96 98.1 09/04/24 11:26 Nasal Cannula* 2 28 Total Intake and Output 09/03/24 09/03/24 09/04/24 15:00 23:00 07:00 Intake Total 50 ml 100 ml 20 ml Output Total 275 ml 225 ml Balance 50 ml -175 ml -205 ml medications Current Medications Medications Dose Ordered Sig/Jaime Route Start Time Stop Time Status Last Admin Dose Admin Acetaminophen/ Hydrocodone Bitart 1 tab Q4HP PRN PO 09/02/24 18:00 Enoxaparin Sodium 40 mg DAILY SC 09/03/24 10:00 09/04/24 09:12 40 MG Acetaminophen 650 mg Q6HP PRN PO 09/02/24 18:00 Nitroglycerin 0.4 mg Q5MINP PRN SL 09/02/24 18:00 Morphine Sulfate 2 mg Q30M PRN IV 09/02/24 18:00 Ceftriaxone Sodium 50 ml @ 100 mls/hr DAILY IV 09/02/24 18:00 09/04/24 09:11 100 MLS/HR Levetiracetam 100 ml @ 400 mls/hr Q12H IV 09/02/24 18:21 09/04/24 18:22 400 MLS/HR Lorazepam 1 mg Q5MINP PRN IV 09/02/24 21:00 Lorazepam 1 mg ONCE PRN IV 09/02/24 21:00 Pantoprazole Sodium 40 mg DAILY IV 09/03/24 16:30 09/04/24 09:11 40 MG Buspirone HCl 7.5 mg Q12HR PO 09/03/24 22:00 09/04/24 09:13 7.5 MG Sertraline HCl 100 mg DAILY PO 09/04/24 10:00 09/04/24 09:11 100 MG Ipratropium [place] 0.5 mg Q6HR NEB 09/04/24 00:00 09/04/24 11:26 0.5 MG Oxybutynin Chloride 5 mg BID PO 09/03/24 22:00 09/04/24 09:11 5 MG objective General: the patient is well developed and nourished. No acute distress. MENTAL STATUS: Subjective SPEECH, LANGUAGE, HIGHER CORTICAL FUNCTION: Subjective CRANIAL NERVES: Pupils are equal, round and reactive. EOMs full and conjugate. No nystagmus. Facial sensation intact in all three divisions bilaterally. Mandibular strength intact. Facial muscles symmetrical and strength intact. SENSATION: Responds to light touch MOTOR: Normal tone in the upper and lower extremity. Normal muscle bulk. No fasciculations. No abnormal movements or posturing. Move the arms and legs REFLEXES: Deep tendon reflexes normal and symmetrical. No pathological reflexes. CEREBELLAR/COORDINATION: Deferred GAIT/STATION: deferred. laboratory and microbiology Laboratory Tests 09/03/24 05:08 Test 09/03/24 05:08 Range/Units Serum Glucose 153 H 74-106 mg/dL Problem List Altered mental status Metabolic encephalopathy Status epileptics Subclinical seizure Other central nervous system etiology Lactic acidosis Assessment/Plan Monitoring Supportive treatment Telemetry Vitamin B12, folic acid, TSH UDS EEG MR brain scan Increase the to Keppra 1250 mg b.i.d. Ativan for seizure breakthrough More recommendation per clinical course This medical document was created using an electronic medical record system with [employer] dictation system. Although this document has been carefully reviewed, there may still be some phonetic and typographical errors. These areas are purely typographical due to imperfections of the software programs, and do not reflect any compromise in the patient's medical care. Prognosis poor Plan discussed with: Other TYREL SCOTT MD Sep 04, 2024 18:33
--- NOTE | 2024-09-04 20:22 | DVHPN2 ---
Progress Note Date Seen: Sep 04, 2024 Medical Necessity Reason Pt with a Central, PICC or Fol: Yes The following are medically ne: Guzman Catheter Subjective Review of Systems: Not Done (Unable to obtain) Objective vital signs Vital Sign Date Time Temp Pulse Resp B/P (MAP) Pulse Ox O2 Delivery O2 Flow Rate FiO2 09/04/24 18:52 100 16 100 09/04/24 18:44 Nasal Cannula* 2 28 09/04/24 17:00 98.1 108/63 (78) 98.1 Total Intake and Output 09/03/24 09/03/24 09/04/24 15:00 23:00 07:00 Intake Total 50 ml 100 ml 20 ml Output Total 275 ml 225 ml Balance 50 ml -175 ml -205 ml medications Current Medications Medications Dose Ordered Sig/Jaime Route Start Time Stop Time Status Last Admin Dose Admin Acetaminophen/ Hydrocodone Bitart 1 tab Q4HP PRN PO 09/02/24 18:00 Enoxaparin Sodium 40 mg DAILY SC 09/03/24 10:00 09/04/24 09:12 40 MG Acetaminophen 650 mg Q6HP PRN PO 09/02/24 18:00 Nitroglycerin 0.4 mg Q5MINP PRN SL 09/02/24 18:00 Morphine Sulfate 2 mg Q30M PRN IV 09/02/24 18:00 Ceftriaxone Sodium 50 ml @ 100 mls/hr DAILY IV 09/02/24 18:00 09/04/24 09:11 100 MLS/HR Lorazepam 1 mg Q5MINP PRN IV 09/02/24 21:00 Lorazepam 1 mg ONCE PRN IV 09/02/24 21:00 Pantoprazole Sodium 40 mg DAILY IV 09/03/24 16:30 09/04/24 09:11 40 MG Buspirone HCl 7.5 mg Q12HR PO 09/03/24 22:00 09/04/24 09:13 7.5 MG Sertraline HCl 100 mg DAILY PO 09/04/24 10:00 09/04/24 09:11 100 MG Ipratropium [place] 0.5 mg Q6HR NEB 09/04/24 00:00 09/04/24 18:44 0.5 MG Oxybutynin Chloride 5 mg BID PO 09/03/24 22:00 09/04/24 09:11 5 MG Levetiracetam 1,250 mg BID PO 09/04/24 22:00 UNV Examination: GENERAL:Normal, CVS:Normal, ABDOMEN:Normal, SKIN:Normal, NEURO:Abnormal (altered) laboratory and microbiology Laboratory Tests 09/03/24 05:08 Test 09/03/24 05:08 Range/Units Serum Glucose 153 H 74-106 mg/dL Microbiology Date/Time Source Procedure Growth Status 09/02/24 17:57 Urine - Catheterized Urine Culture - Preliminary Resulted 09/02/24 13:21 Blood Blood Culture - Preliminary NO GROWTH AFTER 48 HOURS OF INCUBATION. Resulted Labs and/or images reviewed: Labs reviewed by me, Image(s) reviewed by me Problem List/Assessment/Plan Problem List/Assessment/Plan 1. ALOC Plan: Monitor, neurology consult 2. Metabolic encephalopathy Plan: Monitor, CT brain, EEG, MRI of brain 3. Status epileptics Plan: Monitor, UA 4. Subclinical seizure Plan: Monitor, antiepileptics 5. Acute cystitis without hematuria Plan: Monitor, PPI,, DVT relaxes 6. Lactic acidosis most likely from seizure Plan: Monitor Assessment/Plan Subjective: Patient is very lethargic, however, she is able to open her eyes and is able to nod her head yes and no. Objective: Patient was admitted for ALOC. Patient lives at an assisted living facility. Patient was seen by neurology, sepsis was ruled out. Lactic acidosis most likely related to a breakthrough seizure. Patient is now more awake and alert. Patient was able doing some of her meals, daughter at bedside was updated on plan of care. EEG was found to be abnormal and Dr. Vazquez neurologist increase Keppra dose. Urine culture is still pending urinalysis was negative for urinary tract infection. Likely patient's encephalopathic state is related to post ictal from seizures Plan: Patient to increase oral intake, Keppra increased by neurologist Plan discussed with: Patient My Orders My Orders Orders - BEV SPENCE Procedure Category Date Status Time *Consult CONS 09/04/24 Transmitted / 18:15 Date of Service: Sep 04, 2024 Billing Provider: LONNIE GRIMES MD Common Visit Codes: [id number] INP/OBS CARE (MOD) BEV SPENCE Sep 04, 2024 20:22
--- NOTE | 2024-09-04 21:38 | DVHINCON2 ---
Date of service: Sep 04, 2024 Referring Physician Tiffany Grant NP Reason for Consultation Acute hypoxic respiratory failure, COPD History of Present Illness A 79-year-old woman with past medical history of COPD, asthma, hypertension and seizures who was brought to ED by EMS on 09/02/24 with chief complaint of ALOC. Per staff at her [facility] facility, the patient is normally A/O x 4, GCS 15, but was found today to only be alert and awake, not oriented. Patient responding "yes" to every question being asked to her. Family report pt having similar symptoms in the past when pt had a UTI. Patient unable to provide history. Patient was admitted for further care and pulmonary consultation is requested for evaluation and management of acute hypoxic respiratory failure and COPD. Review of Systems: Unable to obtain due to pt's mental status. Past Medical History: Hypertension, asthma, COPD, and seizures Past Surgical History: Knee replacement, lumbar spine surgery x 3, pain stimulator for bowel and bladder control Medications: Reviewed. Allergies: Tramadol Family History: No family history of premature CAD. No family history of lung disorders. Social History: Nonsmoker. No alcohol or illicit drug use. Allergies: Coded Allergies: Tramadol (Verified Allergy, Unknown, 09/02/24) Home Meds Reported Medications Fexofenadine-Pseudoephedrine (MARIA C-D 24 HOUR ALLERGY) 24 Hour Tab, 24 HOUR PO DAILY, TAB 09/02/24 Famotidine (PEPCID TABLET) 20 Mg Tb, 20 MG PO DAILY, TAB 09/02/24 Midodrine Hcl (Midodrine Hcl) 2.5 Mg Tab, 1 TAB PO BID 09/02/24 Sertraline Hcl (Sertraline Hcl) 100 Mg Tab, 1 TAB PO DAILY 09/02/24 Montelukast Sodium (MONTELUKAST SODIUM) 10 Mg Tab, 1 TAB PO DAILY 09/02/24 Solifenacin Succinate (Solifenacin Succinate) 10 Mg Tab, 5 MG PO DAILY 09/02/24 Levetiracetam (Levetiracetam) 1,000 Mg Tab, 1000 MG PO BID 09/02/24 Tiotropium [place] Monohydrate (Spiriva Handihaler) 18 Mcg Cap, 18 MCG IN DAILY, CAP 04/08/19 Fluticasone Furoate-Vilanterol (Breo Ellipta 200-25 Mcg/INH) 1 Inh Inh, 1 PUFF IN DAILY, INHALER 04/08/19 Buspirone Hcl (Buspirone Hcl) 10 Mg Tab, 7.5 MG PO Q12HR for ANXIETY for 30 Days, MG 04/07/19 Current Medications Current Medications Medications (Trade) Dose Ordered Sig/Jaime Route PRN Reason Start Time Stop Time Status Last Admin Buspirone HCl (Buspar Tablet) 7.5 mg Q12HR PO 09/03/24 22:00 09/04/24 09:13 Sertraline HCl (Zoloft) 100 mg DAILY PO 09/04/24 10:00 09/04/24 09:11 Patient Own Medication 5 mg DAILY PO 09/04/24 10:00 09/03/24 18:41 DC Ipratropium [place] (Atrovent Medneb) 0.5 mg Q6HR NEB 09/04/24 00:00 09/04/24 18:44 Oxybutynin Chloride (Ditropan Tablet) 5 mg BID PO 09/03/24 22:00 09/04/24 09:11 Levetiracetam (Keppra Tablet) 1,250 mg BID@0600,1800 PO 09/05/24 06:00 Vital Signs Vital Signs Date Time Temp Pulse Resp B/P (MAP) Pulse Ox O2 Delivery O2 Flow Rate FiO2 09/04/24 18:52 100 16 100 09/04/24 18:44 Nasal Cannula* 2 28 09/04/24 17:00 98.1 108/63 (78) 98.1 Physical Exam Gen.: Patient lying in bed in no apparent distress. On supplemental oxygen. Head: Normocephalic, atraumatic. Eyes: EOMI/PERRLA. Ears: Normal hearing. Normal anatomy. Neck/trachea: Trachea midline, supple. Nose: Normal external anatomy. Mouth: Moist mucous membranes. Chest: Decreased air entry bilaterally. No wheezing or rhonchi. Cardiovascular: Positive S1, positive S2. Regular rate and rhythm. Abdomen: Positive bowel sounds in all 4 quadrants. Soft, non-tender, non- distended. : Deferred. Rectal: Deferred. Skin: Warm, dry. Intact. Extremities: 2+ radial pulses bilaterally. No lower extremity edema. Neuro: Awake, alert. Altered. No gross motor or sensory deficits. Cranial nerves II through XII intact. Gait not assessed. Labs/Diagnostic Data Labs Test 09/03/24 05:08 09/02/24 20:08 09/02/24 17:57 09/02/24 15:21 Range/Units White Blood Count 12.2 H 4.4-10.8 10^3/uL Red Blood Count 4.16 4.0-5.20 10^6/uL Hemoglobin 13.4 12.2-16.2 g/dL Hematocrit 40.7 36.0-46.0 % Mean Corpuscular Volume 97.9 80.0-100.0 fL Mean Corpuscular Hemoglobin 32.2 H 28.0-32.0 pg Mean Corpuscular Hemoglobin Concent 32.9 32.0-36.0 g/dL Red Cell Distribution Width 13.6 11.8-14.3 % Platelet Count 269 140-450 10^3/uL Mean Platelet Volume 7.7 6.9-10.8 fL Neutrophils (%) (Auto) 88.0 H 37.0-80.0 % Lymphocytes (%) (Auto) 6.0 L 10.0-50.0 % Monocytes (%) (Auto) 4.7 0.0-12.0 % Eosinophils (%) (Auto) 0.1 0.0-7.0 % Basophils (%) (Auto) 1.2 0.0-2.0 % Neutrophils # (Auto) 10.8 H 1.6-8.6 10 ^3/uL Lymphocytes # (Auto) 0.7 0.4-5.4 10 ^3/uL Monocytes # (Auto) 0.6 0-1.3 10 ^3/uL Eosinophils # (Auto) 0 0-0.8 10 ^3/uL Basophils # (Auto) 0.1 0-0.2 10 ^3/uL Nucleated Red Blood Cells 0.0 % Sodium Level 141 136-145 mmol/L Potassium Level 3.7 3.5-5.1 mmol/L Chloride Level 105 98-107 mmol/L Carbon Dioxide Level 25 20-31 mmol/L Anion Gap 11 5-15 Blood Urea Nitrogen 10 9-23 mg/dL Creatinine 0.79 0.550-1.02 mg/dL Glomerular Filtration Rate Calc 77 >90 mL/min BUN/Creatinine Ratio 12.7 10.0-20.0 Serum Glucose 153 H 74-106 mg/dL Hemoglobin A1c < 4.0 <5.7 % A1C Calcium Level 9.5 8.7-10.4 mg/dL Total Bilirubin 0.5 0.2-1.0 mg/dL Aspartate Amino Transferase (AST) 25 13-40 U/L Alanine Aminotransferase (ALT) 13 7-40 U/L Alkaline Phosphatase 70 46-116 U/L Total Protein 6.9 5.7-8.2 g/dL Albumin 4.6 3.2-4.8 g/dL Vitamin B12 Level 398 211-911 pg/mL Folic Acid 35.84 >5.38 ng/mL Thyroid Stimulating Hormone (TSH) 0.89 0.55-4.78 uIU/mL Free Thyroxine (T4) Calculated 0.80 L 0.89-1.76 ng/dL POC Glucose 166 H 70-106 mg/dl Urine Color Yellow Yellow Urine Clarity Clear Clear Urine pH 6.0 5.0-9.0 Urine Specific [place] 1.020 1.001-1.035 Urine Protein Negative Negative Urine Ketones 2+ H Negative Urine Blood Negative Negative /uL Urine Nitrite Negative Negative Urine Bilirubin Negative Negative Urine Urobilinogen Normal Negative mg/dL Urine Leukocyte Esterase Negative Negative /uL Urine RBC <1 0 - 4 /hpf Urine Microscopic WBC < 1 0-5 /HPF Urine Squamous Epithelial Cells Few <5 /hpf Urine Bacteria None seen None Seen /hpf Urine Mucus Few None Seen Urine Glucose Normal Normal mg/dL Lactic Acid Level 1.7 0.4-2.0 mmol/L Microbiology Date/Time Source Procedure Growth Status 09/02/24 17:57 Urine - Catheterized Urine Culture - Preliminary Resulted 09/02/24 13:21 Blood Blood Culture - Preliminary NO GROWTH AFTER 48 HOURS OF INCUBATION. Resulted Assessment Impression: Acute hypoxic respiratory failure Dependence on supplemental oxygen Chronic obstructive pulmonary disease, stable Acute metabolic encephalopathy Seizure disorder Plan: Supplemental oxygen 2 LPM NC Titrate to keep O2 sats above 92%. Taper O2 as tolerated. Continue bronchodilators PRN Continue antibiotics Incentive spirometry Patient is altered Follow up Neurology recs Seizure disorder- Follow up EEG. Monitor renal function. Monitor electrolytes. Supplement as necessary. Monitor ins and outs. DVT prophylaxis. Prognosis: Poor given patient's multiple co-morbidities. Rest of plan per hospitalist and other consultants. Thank you, ALEXA Grant, for allowing me to participate in this patient's care. Further recommendations will depend on the patient's clinical course. Please do not hesitate to contact me if you have any questions or concerns. This medical document was created using an electronic medical record system with [employer] dictation system. Although these documentations are being carefully reviewed, there may still be some phonetic and typographical changes. The errors are purely typographical, due to imperfection on the software program, and do not reflect any compromise in the patient's medical care. Plan discussed with: Other (BRIAN Armando/ALEXA Grant/) BRUNO MCGRATH MD Sep 04, 2024 21:38
[2024-09-05] VITALS (20 sets, daily range): BP systolic 96–118; BP diastolic 45–71; PULSE 58–174; RESP 15–20; TEMP 98–98.6; O2SAT 94–100
[2024-09-05] MEDS: HYDROcodone-ACET 5/325MG TAB PO PRN (04:27)
[2024-09-05] MEDS: levETIRAcetam 500 MG TAB PO SCH (05:30)
--- NOTE | 2024-09-05 07:13 | ECG ---
[facility] Test Date: 2024-09-05 Test Time: 07:11:31 Pat Name: SHANNAN GORDON Department: Respiratoy Room: 0214T B Gender: F Project Portfolio Analyst: [id number] : [id number] Requested By: LIBBY GLASER Order Number: [id number] Reading MD: Measurements Intervals [place] Rate: 167 P: 0 OH: 0 QRS: 39 QRSD: 106 T: 20 QT: 291 QTc: 486 Interpretive Statements Atrial fibrillation with rapid V-rate ST depression, probably rate related Baseline wander in lead(s) II,aVR,aVF,V5 Please click the below link to view image of tracing.
[2024-09-05] MEDS: AMIODARONE BOLUS KIT 100 ML IV ONE ×2 (07:45→08:49)
[2024-09-05] MEDS: ENOXAPARIN SOD 60 MG/0.6 ML SYRINGE SC SCH (09:16)
[2024-09-05] MEDS: AMIODARONE 360mg/200mL PREMIX 200 ML IV ONE (09:51)
[2024-09-05 13:25] LABS: Basophils # (auto) 0 10 ^3/uL (0-0.2); Basophils % (auto) 0.3 % (0.0-2.0); Eosinophils # (auto) 0 10 ^3/uL (0-0.8); Eosinophils % (auto) 0.3 % (0.0-7.0); Hematocrit 38.5 % (36.0-46.0); Hemoglobin 12.7 g/dL (12.2-16.2); Lymphocytes # (auto) 1.9 10 ^3/uL (0.4-5.4); Lymphocytes % (auto) 14.6 % (10.0-50.0); Mean Corpuscular Hemoglobin 32.9 pg (28.0-32.0); Mean Corpuscular Volume 99.6 fL (80.0-100.0); Monocytes # (auto) 1.3 10 ^3/uL (0-1.3); Neutrophils # (auto) 9.6 10 ^3/uL (1.6-8.6); Neutrophils % (auto) 74.8 % (37.0-80.0); Nucleated Red Blood Cells % 0.1 %; Platelet Count (auto) 250 10^3/uL (140-450); Red Blood Cells 3.87 10^6/uL (4.0-5.20); Red Cell Distribution Width 13.9 % (11.8-14.3); White Blood Cell 12.8 10^3/uL (4.4-10.8)
[2024-09-05 13:35] LABS: Alanine Aminotransferase 12 U/L (7-40); Albumin 4.1 g/dL (3.2-4.8); Alkaline Phosphatase 62 U/L (46-116); Anion Gap 11 (5-15); Aspartate Aminotransferase 23 U/L (13-40); Bilirubin, Total 0.3 mg/dL (0.2-1.0); Blood Urea Nitrogen 16 mg/dL (9-23); Calcium 9.3 mg/dL (8.7-10.4); Carbon Dioxide 25 mmol/L (20-31); Chloride 105 mmol/L (98-107); Potassium 3.6 mmol/L (3.5-5.1); Sodium 141 mmol/L (136-145); Total Protein 6.3 g/dL (5.7-8.2)
[2024-09-05 13:37] LABS: Glucose 174 mg/dL (74-106)
[2024-09-05] MEDS: AMIODARONE 360mg/200mL PREMIX 200 ML IV SCH (14:47)
--- NOTE | 2024-09-05 17:06 | MEDREC ---
FORM[facility], [facility] Intervention Section I FOR[facility], [facility] Intervention: Review courses of therapy (PLEASE CONSIDER ADDING GRAM POSITIVE ANTIBIOTIC COVERAGE IF IT IS CLINICALLY RELEVANT BASED ON THE URINE CULTURE SHOWED ENTERCOCCUS SPECIES AND PATIENT WAS LIVING IN A [facility]) ORIN MIMS Sep 05, 2024 17:06
--- NOTE | 2024-09-05 17:22 | DVHPN2 ---
Progress Note Date Seen: Sep 05, 2024 Medical Necessity Reason Pt with a Central, PICC or Fol: Yes The following are medically ne: Guzman Catheter Subjective Patient reports: No new complaints Review of Systems: Not Done Objective vital signs Vital Sign Date Time Temp Pulse Resp B/P (MAP) Pulse Ox O2 Delivery O2 Flow Rate FiO2 09/05/24 16:45 98.4 99 18 102/48 (66) 97 98.4 09/05/24 11:17 Nasal Cannula* 3 32 Total Intake and Output 09/04/24 09/04/24 09/05/24 15:00 23:00 07:00 Intake Total 50 ml 480 ml 1000 ml Output Total 200 ml 450 ml Balance 50 ml 280 ml 550 ml medications Current Medications Medications Dose Ordered Sig/Jaime Route Start Time Stop Time Status Last Admin Dose Admin Acetaminophen/ Hydrocodone Bitart 1 tab Q4HP PRN PO 09/02/24 18:00 09/05/24 04:27 1 TAB Acetaminophen 650 mg Q6HP PRN PO 09/02/24 18:00 Nitroglycerin 0.4 mg Q5MINP PRN SL 09/02/24 18:00 Morphine Sulfate 2 mg Q30M PRN IV 09/02/24 18:00 Ceftriaxone Sodium 50 ml @ 100 mls/hr DAILY IV 09/02/24 18:00 09/05/24 09:16 100 MLS/HR Lorazepam 1 mg Q5MINP PRN IV 09/02/24 21:00 Lorazepam 1 mg ONCE PRN IV 09/02/24 21:00 Pantoprazole Sodium 40 mg DAILY IV 09/03/24 16:30 09/05/24 09:16 40 MG Buspirone HCl 7.5 mg Q12HR PO 09/03/24 22:00 09/05/24 09:14 7.5 MG Ipratropium [place] 0.5 mg Q6HR NEB 09/04/24 00:00 09/05/24 11:17 0.5 MG Oxybutynin Chloride 5 mg BID PO 09/03/24 22:00 09/05/24 09:14 5 MG Levetiracetam 1,250 mg BID@0600,1800 PO 09/05/24 06:00 09/05/24 05:30 1,250 MG Enoxaparin Sodium 60 mg Q12HR SC 09/05/24 10:00 09/05/24 09:16 60 MG Examination: GENERAL:Normal, LUNGS:Normal, CVS:Normal, ABDOMEN:Normal, SKIN:Normal, NEURO:Abnormal laboratory and microbiology Laboratory Tests 09/05/24 10:41 Test 09/05/24 10:41 Range/Units Serum Glucose 174 H 74-106 mg/dL Microbiology Date/Time Source Procedure Growth Status 09/02/24 17:57 Urine - Catheterized Urine Culture - Preliminary Resulted 09/02/24 13:21 Blood Blood Culture - Preliminary NO GROWTH AFTER 72 HOURS OF INCUBATION. Resulted Labs and/or images reviewed: Labs reviewed by me, Image(s) reviewed by me Problem List/Assessment/Plan Problem List/Assessment/Plan 1. ALOC Plan: Monitor, neurology consult 2. Metabolic encephalopathy Plan: Monitor, CT brain, EEG, MRI of brain 3. Status epileptics Plan: Monitor, UA 4. Subclinical seizure Plan: Monitor, antiepileptics 5. Acute cystitis without hematuria Plan: Monitor, PPI,, DVT relaxes 6. Lactic acidosis most likely from seizure Plan: Monitor Assessment/Plan Subjective: Patient is very lethargic, however, she is able to open her eyes and is able to nod her head yes and no. Objective: Patient was admitted for ALOC. Patient lives at an assisted living facility. Patient was seen by neurology, sepsis was ruled out. Lactic acidosis most likely related to a breakthrough seizure. Patient is now more awake and alert. Patient was able doing some of her meals. EEG was found to be abnormal and Dr. Vazquez neurologist increase Keppra dose. Urine culture is positive for Enterococcus. Likely patient's encephalopathic state is related to post ictal from seizures. This morning patient went into AFib RVR with heart rate in the 190s, patient came in with sinus rhythm upon admission, patient was started on amiodarone drip and heart rate has decreased to the low 100s. Patient was placed on full-dose Lovenox, manager of applications development was consulted. Patient remains altered we will order MRI of brain. Plan: Patient to increase oral intake, Keppra increased by neurologist. Cardiac consult, continue amiodarone drip, full anticoagulation with therapeutic Lovenox Plan discussed with: Daughter My Orders My Orders Orders - BEV SPENCE Procedure Category Date Status Time *Consult CONS 09/04/24 Transmitted / 18:15 *Consult Dr. Niño CONS 09/05/24 Transmitted 07:36 Amiodarone PHA 09/05/24 In Process 360mg/200ml Premix 14:00 Enoxaparin Sodium PHA 09/05/24 In Process (Lovenox) 10:00 Brain Head Wo Contrast MRI 09/05/24 Logged 10:49 Date of Service: Sep 05, 2024 Billing Provider: LONNIE GRIMES MD Common Visit Codes: [id number] INP/OBS CARE (MOD) BEV SPENCE CASE MANAGER SPECIALIST Sep 05, 2024 17:22
--- NOTE | 2024-09-05 18:38 | DVHINCON2 ---
Date of service: Sep 05, 2024 Referring Physician Ally Grant Reason for Consultation respiratory failure. History of Present Illness 79 years old lady with history of COPD asthma who presented to the hospital with change of mental status [facility] I was asked to evaluate the patient from cardiac perspective. she denies any syncope. Past Medical History past medical history as above hypertension asthma COPD and seizure, history of knee replacement lumbar spine surgery x 3 history of pain and stimulator for bowel or bladder control Home medication. Past Surgical History history of knee replacement lumbar spine surgery x 3 history of pain and stimulator for bowel or bladder control Home medication Family History noncontributory Social History Denies toxic habits. Allergies: Coded Allergies: Tramadol (Verified Allergy, Unknown, 09/02/24) Home Meds Reported Medications Fexofenadine-Pseudoephedrine (MARIA C-D 24 HOUR ALLERGY) 24 Hour Tab, 24 HOUR PO DAILY, TAB 09/02/24 Famotidine (PEPCID TABLET) 20 Mg Tb, 20 MG PO DAILY, TAB 09/02/24 Midodrine Hcl (Midodrine Hcl) 2.5 Mg Tab, 1 TAB PO BID 09/02/24 Sertraline Hcl (Sertraline Hcl) 100 Mg Tab, 1 TAB PO DAILY 09/02/24 Montelukast Sodium (MONTELUKAST SODIUM) 10 Mg Tab, 1 TAB PO DAILY 09/02/24 Solifenacin Succinate (Solifenacin Succinate) 10 Mg Tab, 5 MG PO DAILY 09/02/24 Levetiracetam (Levetiracetam) 1,000 Mg Tab, 1000 MG PO BID 09/02/[address] [place] Monohydrate (Spiriva Handihaler) 18 Mcg Cap, 18 MCG IN DAILY, CAP 04/08/19 Fluticasone Furoate-Vilanterol (Breo Ellipta 200-25 Mcg/INH) 1 Inh Inh, 1 PUFF IN DAILY, INHALER 04/08/19 Buspirone Hcl (Buspirone Hcl) 10 Mg Tab, 7.5 MG PO Q12HR for ANXIETY for 30 Days, MG 04/07/19 Current Medications Current Medications Medications (Trade) Dose Ordered Sig/Jaime Route PRN Reason Start Time Stop Time Status Last Admin Levetiracetam (Keppra Tablet) 1,250 mg BID@0600,1800 PO 09/05/24 06:00 09/05/24 05:30 Enoxaparin Sodium (Lovenox) 60 mg Q12HR SC 09/05/24 10:00 09/05/24 09:16 Review of Systems review of system otherwise unremarkable Vital Signs Vital Signs Date Time Temp Pulse Resp B/P (MAP) Pulse Ox O2 Delivery O2 Flow Rate FiO2 09/05/24 16:45 98.4 99 18 102/48 (66) 97 98.4 09/05/24 11:17 Nasal Cannula* 3 32 Physical Exam S1 and S2 heard regular her lungs with scattered rhonchi abdomen benign distal pulses palpable 1+ without edema Labs/Diagnostic Data Labs Test 09/05/24 16:10 09/05/24 10:41 09/05/24 10:33 09/03/24 05:08 Range/Units Troponin I High Sensitivity 47 *H </=34 ng/L White Blood Count 12.8 H 4.4-10.8 10^3/uL Red Blood Count 3.87 L 4.0-5.20 10^6/uL Hemoglobin 12.7 12.2-16.2 g/dL Hematocrit 38.5 36.0-46.0 % Mean Corpuscular Volume 99.6 80.0-100.0 fL Mean Corpuscular Hemoglobin 32.9 H 28.0-32.0 pg Mean Corpuscular Hemoglobin Concent 33.0 32.0-36.0 g/dL Red Cell Distribution Width 13.9 11.8-14.3 % Platelet Count 250 140-450 10^3/uL Mean Platelet Volume 8.4 6.9-10.8 fL Neutrophils (%) (Auto) 74.8 37.0-80.0 % Lymphocytes (%) (Auto) 14.6 10.0-50.0 % Monocytes (%) (Auto) 10.0 0.0-12.0 % Eosinophils (%) (Auto) 0.3 0.0-7.0 % Basophils (%) (Auto) 0.3 0.0-2.0 % Neutrophils # (Auto) 9.6 H 1.6-8.6 10 ^3/uL Lymphocytes # (Auto) 1.9 0.4-5.4 10 ^3/uL Monocytes # (Auto) 1.3 0-1.3 10 ^3/uL Eosinophils # (Auto) 0 0-0.8 10 ^3/uL Basophils # (Auto) 0 0-0.2 10 ^3/uL Nucleated Red Blood Cells 0.1 % Sodium Level 141 136-145 mmol/L Potassium Level 3.6 3.5-5.1 mmol/L Chloride Level 105 98-107 mmol/L Carbon Dioxide Level 25 20-31 mmol/L Anion Gap 11 5-15 Blood Urea Nitrogen 16 9-23 mg/dL Creatinine 0.80 0.550-1.02 mg/dL Glomerular Filtration Rate Calc 76 >90 mL/min BUN/Creatinine Ratio 20.0 10.0-20.0 Serum Glucose 174 H 74-106 mg/dL Calcium Level 9.3 8.7-10.4 mg/dL Total Bilirubin 0.3 0.2-1.0 mg/dL Aspartate Amino Transferase (AST) 23 13-40 U/L Alanine Aminotransferase (ALT) 12 7-40 U/L Alkaline Phosphatase 62 46-116 U/L Total Protein 6.3 5.7-8.2 g/dL Albumin 4.1 3.2-4.8 g/dL Magnesium Level 2.3 1.6-2.6 mg/dL Hemoglobin A1c < 4.0 <5.7 % A1C Vitamin B12 Level 398 211-911 pg/mL Folic Acid 35.84 >5.38 ng/mL Thyroid Stimulating Hormone (TSH) 0.89 0.55-4.78 uIU/mL Free Thyroxine (T4) Calculated 0.80 L 0.89-1.76 ng/dL Test 09/02/24 20:08 09/02/24 17:57 09/02/24 15:21 Range/Units POC Glucose 166 H 70-106 mg/dl Urine Color Yellow Yellow Urine Clarity Clear Clear Urine pH 6.0 5.0-9.0 Urine Specific [place] 1.020 1.001-1.035 Urine Protein Negative Negative Urine Ketones 2+ H Negative Urine Blood Negative Negative /uL Urine Nitrite Negative Negative Urine Bilirubin Negative Negative Urine Urobilinogen Normal Negative mg/dL Urine Leukocyte Esterase Negative Negative /uL Urine RBC <1 0 - 4 /hpf Urine Microscopic WBC < 1 0-5 /HPF Urine Squamous Epithelial Cells Few <5 /hpf Urine Bacteria None seen None Seen /hpf Urine Mucus Few None Seen Urine Glucose Normal Normal mg/dL Lactic Acid Level 1.7 0.4-2.0 mmol/L Microbiology Date/Time Source Procedure Growth Status 09/02/24 17:57 Urine - Catheterized Urine Culture - Preliminary Resulted 09/02/24 13:21 Blood Blood Culture - Preliminary NO GROWTH AFTER 72 HOURS OF INCUBATION. Resulted Assessment Acute respiratory failure on home O2 25/02 history of COPD metabolic encephalopathy seizure disorder hypertension the EEG is pending recommendation continue the current care keep Plan/Recommendation EEG is pending. recommendation continue the current care keep the magnesium above 2 potassium above 4 obtain 2D echocardiogram will make further recommendation based on the above. Cardiac monitoring Hemodynamic monitoring. Avoid hypertension and hypotension. Monitor and maintain electrolytes and renal function. Supplement as needed to maintain K >4.0 and Mg >2.0. Monitor Hgb and transfuse if Hgb < 7.0. Lifestyle and risk modification counseling All available labs, EKGs, and images were personally reviewed Plan of care discussed with and agreed upon by patient/family/Primary RN. Prognosis: Guarded Thank you for allowing me to participate in the care of this patient. Further recommendations will depend on clinical progression, hospitalist, and other consultants. Will continue to follow with Primary. If you have any questions, please do not hesitate to contact me. A total [id number] was spent reviewing the patient record, examining the patient, making a diagnostic and therapeutic plan, discussing this plan with medical personnel, following up on diagnostic studies and following the patient for clinical stability excluding any and all procedures. At least 50% of this time was spent in direct, [id number] contact. Plan discussed with: Patient CAROL WEATHERS MD Sep 05, 2024 18:38
--- NOTE | 2024-09-05 21:36 | DVHPN2 ---
Progress Note - Dictate Date Seen: Sep 05, 2024 Medical Necessity Reason Pt with a Central, PICC or Fol: Yes The following are medically ne: Kimbrough Catheter Reason for kimbrough catheter: Strict I&O Subjective Patient seen and examined at bedside. Remains on supplemental oxygen Overnight events reviewed. vital signs Vital Sign Date Time Temp Pulse Resp B/P (MAP) Pulse Ox O2 Delivery O2 Flow Rate FiO2 09/05/24 18:06 96 16 99 09/05/24 17:56 Nasal Cannula 3.0 09/05/24 17:56 32 09/05/24 16:45 98.4 102/48 (66) 98.4 Total Intake and Output 09/04/24 09/04/24 09/05/24 15:00 23:00 07:00 Intake Total 50 ml 480 ml 1000 ml Output Total 200 ml 450 ml Balance 50 ml 280 ml 550 ml medications Current Medications Medications Dose Ordered Sig/Jaime Route Start Time Stop Time Status Last Admin Dose Admin Acetaminophen/ Hydrocodone Bitart 1 tab Q4HP PRN PO 09/02/24 18:00 09/05/24 04:27 1 TAB Acetaminophen 650 mg Q6HP PRN PO 09/02/24 18:00 Nitroglycerin 0.4 mg Q5MINP PRN SL 09/02/24 18:00 Morphine Sulfate 2 mg Q30M PRN IV 09/02/24 18:00 Ceftriaxone Sodium 50 ml @ 100 mls/hr DAILY IV 09/02/24 18:00 09/05/24 09:16 100 MLS/HR Lorazepam 1 mg Q5MINP PRN IV 09/02/24 21:00 Lorazepam 1 mg ONCE PRN IV 09/02/24 21:00 Pantoprazole Sodium 40 mg DAILY IV 09/03/24 16:30 09/05/24 09:16 40 MG Buspirone HCl 7.5 mg Q12HR PO 09/03/24 22:00 09/05/24 20:57 7.5 MG Ipratropium [place] 0.5 mg Q6HR NEB 09/04/24 00:00 09/05/24 17:56 0.5 MG Oxybutynin Chloride 5 mg BID PO 09/03/24 22:00 09/05/24 20:57 5 MG Levetiracetam 1,250 mg BID@0600,1800 PO 09/05/24 06:00 2/1/25 18:57 1,250 MG Enoxaparin Sodium 60 mg Q12HR SC 09/05/24 10:00 09/05/24 21:02 60 MG objective Gen.: Patient lying in bed in no apparent distress. On supplemental oxygen. Head: Normocephalic, atraumatic. Eyes: EOMI/PERRLA. Ears: Normal hearing. Normal anatomy. Neck/trachea: Trachea midline, supple. Nose: Normal external anatomy. Mouth: Moist mucous membranes. Chest: Decreased air entry bilaterally. No wheezing or rhonchi. Cardiovascular: Positive S1, positive S2. Regular rate and rhythm. Abdomen: Positive bowel sounds in all 4 quadrants. Soft, non-tender, non- distended. : Deferred. Rectal: Deferred. Skin: Warm, dry. Intact. Extremities: 2+ radial pulses bilaterally. No lower extremity edema. Neuro: Awake, alert, altered. No gross motor or sensory deficits. Cranial nerves II through XII intact. Gait not assessed. laboratory and microbiology Laboratory Tests 09/05/24 10:41 Test 09/05/24 10:41 Range/Units Serum Glucose 174 H 74-106 mg/dL Assessment/Plan Impression: Acute hypoxic respiratory failure Dependence on supplemental oxygen Chronic obstructive pulmonary disease, stable Acute metabolic encephalopathy Seizure disorder Events: Remains on supplemental oxygen, 3 LPM NC Taper O2 as tolerated AFib with RVR - 180 to 190s Pt received amiodarone bolus + amio drip. Follow up Cardiology recs (Dr. Niño) IV fluid bolus given. Heart rate improved. Elevated troponin Follow up Echo results. Continue bronchodilators Continue antibiotics Antiepileptic - Keppra Pain control Avoid oversedation Labs and imaging reviewed. Rest of plan as noted below. Plan: Supplemental oxygen Titrate to keep O2 sats above 92%. Continue bronchodilators PRN Continue antibiotics Incentive spirometry Patient is altered Follow up Neurology recs Seizure disorder- Follow up EEG. Monitor renal function. Monitor electrolytes. Supplement as necessary. Monitor ins and outs. DVT prophylaxis. Prognosis: Poor given patient's multiple co-morbidities. Rest of plan per hospitalist and other consultants. Thank you, ALEXA Grant, for allowing me to participate in this patient's care. Further recommendations will depend on the patient's clinical course. Please do not hesitate to contact me if you have any questions or concerns. This medical document was created using an electronic medical record system with [employer] computerized dictation system. Although these documentations are being carefully reviewed, there may still be some phonetic and typographical changes. The errors are purely typographical, due to imperfection on the software program, and do not reflect any compromise in the patient's medical care. Plan discussed with: Other (BRIAN Armando) BRUNO MCGRATH MD Sep 05, 2024 21:36
[2024-09-06] VITALS (14 sets, daily range): BP systolic 90–114; BP diastolic 51–59; PULSE 63–104; RESP 16–18; TEMP 98–98.7; O2SAT 93–100
[2024-09-06 11:57] LABS: Basophils # (auto) 0 10 ^3/uL (0-0.2); Basophils % (auto) 0.4 % (0.0-2.0); Eosinophils # (auto) 0.3 10 ^3/uL (0-0.8); Eosinophils % (auto) 2.5 % (0.0-7.0); Hematocrit 40.9 % (36.0-46.0); Hemoglobin 13.6 g/dL (12.2-16.2); Lymphocytes # (auto) 1.9 10 ^3/uL (0.4-5.4); Lymphocytes % (auto) 17.5 % (10.0-50.0); Mean Corpuscular Hemoglobin 32.4 pg (28.0-32.0); Mean Corpuscular Hgb Conc. 33.3 g/dL (32.0-36.0); Mean Corpuscular Volume 97.3 fL (80.0-100.0); Monocytes # (auto) 0.9 10 ^3/uL (0-1.3); Monocytes % (auto) 8.3 % (0.0-12.0); Neutrophils # (auto) 7.8 10 ^3/uL (1.6-8.6); Neutrophils % (auto) 71.3 % (37.0-80.0); Nucleated Red Blood Cells % 0.1 %; Platelet Count (auto) 241 10^3/uL (140-450); Red Cell Distribution Width 13.5 % (11.8-14.3); White Blood Cell 10.9 10^3/uL (4.4-10.8)
[2024-09-06 12:10] LABS: Chloride 103 mmol/L (98-107); Potassium 3.7 mmol/L (3.5-5.1); Sodium 137 mmol/L (136-145)
[2024-09-06 12:11] LABS: Anion Gap 10 (5-15); Calcium 9.1 mg/dL (8.7-10.4); Carbon Dioxide 24 mmol/L (20-31)
[2024-09-06 12:17] LABS: Blood Urea Nitrogen 6 mg/dL (9-23); Glucose 116 mg/dL (74-106); Magnesium 2.6 mg/dL (1.6-2.6)
--- NOTE | 2024-09-06 13:16 | DVHPN2 ---
Progress Note Date Seen: Sep 06, 2024 Medical Necessity Reason Pt with a Central, PICC or Fol: Yes The following are medically ne: Kimbrough Catheter Reason for kimbrough catheter: Strict I&O Objective vital signs Vital Sign Date Time Temp Pulse Resp B/P (MAP) Pulse Ox O2 Delivery O2 Flow Rate FiO2 09/06/24 12:54 98.2 98 16 90/51 (64) 99 98.2 09/06/24 12:08 Nasal Cannula 3.0 09/06/24 12:08 32 Total Intake and Output 09/05/24 09/05/24 09/06/24 15:00 23:00 07:00 Intake Total 800 ml 300 ml 883 ml Output Total 250 ml 525 ml Balance 800 ml 50 ml 358 ml medications Current Medications Medications Dose Ordered Sig/Jaime Route Start Time Stop Time Status Last Admin Dose Admin Acetaminophen/ Hydrocodone Bitart 1 tab Q4HP PRN PO 09/02/24 18:00 09/05/24 04:27 1 TAB Acetaminophen 650 mg Q6HP PRN PO 09/02/24 18:00 Nitroglycerin 0.4 mg Q5MINP PRN SL 09/02/24 18:00 Morphine Sulfate 2 mg Q30M PRN IV 09/02/24 18:00 Ceftriaxone Sodium 50 ml @ 100 mls/hr DAILY IV 09/02/24 18:00 09/06/24 09:22 100 MLS/HR Lorazepam 1 mg Q5MINP PRN IV 09/02/24 21:00 Lorazepam 1 mg ONCE PRN IV 09/02/24 21:00 Pantoprazole Sodium 40 mg DAILY IV 09/03/24 16:30 09/06/24 09:24 40 MG Buspirone HCl 7.5 mg Q12HR PO 09/03/24 22:00 09/06/24 09:37 7.5 MG Ipratropium [place] 0.5 mg Q6HR NEB 09/04/24 00:00 09/06/24 12:08 0.5 MG Oxybutynin Chloride 5 mg BID PO 09/03/24 22:00 09/06/24 09:24 5 MG Levetiracetam 1,250 mg BID@0600,1800 PO 09/05/24 06:00 09/06/24 05:41 1,250 MG Enoxaparin Sodium 60 mg Q12HR SC 09/05/24 10:00 09/06/24 09:23 60 MG laboratory and microbiology Laboratory Tests 09/06/24 10:58 Test 09/06/24 10:58 Range/Units Serum Glucose 116 H 74-106 mg/dL Microbiology Date/Time Source Procedure Growth Status 09/02/24 17:57 Urine - Catheterized Urine Culture - Preliminary Resulted 09/02/24 13:21 Blood Blood Culture - Preliminary NO GROWTH AFTER 72 HOURS OF INCUBATION. Resulted Problem List/Assessment/Plan Problem List/Assessment/Plan Assessment Acute respiratory failure on home O2 25/02 history of COPD metabolic encephalopathy seizure disorder hypertension the EEG is pending recommendation continue the current care keep Plan/Recommendation EEG is pending. recommendation continue the current care keep the magnesium above 2 potassium above 4 obtain 2D echocardiogram will make further recommendation based on the above. Cardiac monitoring Hemodynamic monitoring. Avoid hypertension and hypotension. Monitor and maintain electrolytes and renal function. Supplement as needed to maintain K >4.0 and Mg >2.0. Monitor Hgb and transfuse if Hgb < 7.0. Lifestyle and risk modification counseling All available labs, EKGs, and images were personally reviewed Plan of care discussed with and agreed upon by patient/family/Primary RN. Prognosis: Guarded Thank you for allowing me to participate in the care of this patient. Further recommendations will depend on clinical progression, hospitalist, and other consultants. Will continue to follow with Primary. If you have any questions, please do not hesitate to contact me. A total [id number] was spent reviewing the patient record, examining the patient, making a diagnostic and therapeutic plan, discussing this plan with medical personnel, following up on diagnostic studies and following the patient for clinical stability excluding any and all procedures. At least 50% of this time was spent in direct, [id number] contact. Plan discussed with: Patient CAROL WEATHERS MD Sep 06, 2024 13:16
--- NOTE | 2024-09-06 16:43 | DVHPN2 ---
Progress Note Date Seen: Sep 06, 2024 Medical Necessity Reason Pt with a Central, PICC or Fol: Yes The following are medically ne: Kimbrough Catheter Reason for kimbrough catheter: Strict I&O Subjective Review of Systems: Not Done (Unable to obtain) Objective vital signs Vital Sign Date Time Temp Pulse Resp B/P (MAP) Pulse Ox O2 Delivery O2 Flow Rate FiO2 09/06/24 12:54 98.2 98 16 90/51 (64) 99 98.2 09/06/24 12:08 Nasal Cannula 3.0 09/06/24 12:08 32 Total Intake and Output 09/05/24 09/05/24 09/06/24 15:00 23:00 07:00 Intake Total 800 ml 300 ml 883 ml Output Total 250 ml 525 ml Balance 800 ml 50 ml 358 ml medications Current Medications Medications Dose Ordered Sig/Jaime Route Start Time Stop Time Status Last Admin Dose Admin Acetaminophen/ Hydrocodone Bitart 1 tab Q4HP PRN PO 09/02/24 18:00 09/05/24 04:27 1 TAB Acetaminophen 650 mg Q6HP PRN PO 09/02/24 18:00 Nitroglycerin 0.4 mg Q5MINP PRN SL 09/02/24 18:00 Morphine Sulfate 2 mg Q30M PRN IV 09/02/24 18:00 Ceftriaxone Sodium 50 ml @ 100 mls/hr DAILY IV 09/02/24 18:00 09/06/24 09:22 100 MLS/HR Lorazepam 1 mg Q5MINP PRN IV 09/02/24 21:00 Lorazepam 1 mg ONCE PRN IV 09/02/24 21:00 Pantoprazole Sodium 40 mg DAILY IV 09/03/24 16:30 09/06/24 09:24 40 MG Buspirone HCl 7.5 mg Q12HR PO 09/03/24 22:00 09/06/24 09:37 7.5 MG Ipratropium [place] 0.5 mg Q6HR NEB 09/04/24 00:00 09/06/24 12:08 0.5 MG Oxybutynin Chloride 5 mg BID PO 09/03/24 22:00 09/06/24 09:24 5 MG Levetiracetam 1,250 mg BID@0600,1800 PO 09/05/24 06:00 09/06/24 05:41 1,250 MG Enoxaparin Sodium 60 mg Q12HR SC 09/05/24 10:00 09/06/24 09:23 60 MG Examination: GENERAL:Normal, LUNGS:Normal, CVS:Normal, ABDOMEN:Normal, SKIN:Normal, NEURO:Normal laboratory and microbiology Laboratory Tests 09/06/24 10:58 Test 09/06/24 10:58 Range/Units Serum Glucose 116 H 74-106 mg/dL Microbiology Date/Time Source Procedure Growth Status 09/02/24 17:57 Urine - Catheterized Urine Culture - Final Enterococcus faecium Complete 09/02/24 13:21 Blood Blood Culture - Preliminary NO GROWTH AFTER 72 HOURS OF INCUBATION. Resulted Problem List/Assessment/Plan Problem List/Assessment/Plan 1. ALOC Plan: Monitor, neurology consult 2. Metabolic encephalopathy Plan: Monitor, CT brain, EEG, MRI of brain 3. Status epileptics Plan: Monitor, UA 4. Subclinical seizure Plan: Monitor, antiepileptics 5. Acute cystitis without hematuria Plan: Monitor, PPI,, DVT relaxes 6. Lactic acidosis most likely from seizure Plan: Monitor Assessment/Plan Subjective: Patient is very lethargic, however, she is able to open her eyes and is able to nod her head yes and no. Objective: Patient was admitted for ALOC. Patient lives at an assisted living facility. Patient was seen by neurology, sepsis was ruled out. Lactic acidosis most likely related to a breakthrough seizure. Patient is now more awake and alert. Patient was able doing some of her meals. EEG was found to be abnormal and Dr. Vazquez neurologist increase Keppra dose. Urine culture is positive for Enterococcus. Likely patient's encephalopathic state is related to post ictal from seizures. This morning patient went into AFib RVR with heart rate in the 190s, patient came in with sinus rhythm upon admission, patient was started on amiodarone drip and heart rate has decreased to the low 100s. Today heart rate remains in the 100s. Patient was placed on full-dose Lovenox, patient was seen by booker. Unable to do MRI due to transmitter in patient. Patient was able to eat all for meal however she remains altered. Plan: Patient to increase oral intake, Keppra increased by neurologist. Cardiac consult, continue amiodarone drip, full anticoagulation with therapeutic Lovenox Plan discussed with: Patient Date of Service: Sep 06, 2024 Billing Provider: LONNIE GRIMES MD Common Visit Codes: [id number] INP/OBS CARE (MOD) BEV SPENCE [employer] SPECIALIST Sep 06, 2024 16:43
--- NOTE | 2024-09-06 21:57 | DVHPN2 ---
Progress Note - Dictate Date Seen: Sep 06, 2024 Medical Necessity Reason Pt with a Central, PICC or Fol: Yes The following are medically ne: Kimbrough Catheter Reason for kimbrough catheter: Strict I&O Subjective Patient seen and examined at bedside. Remains on supplemental oxygen Overnight events reviewed. vital signs Vital Sign Date Time Temp Pulse Resp B/P (MAP) Pulse Ox O2 Delivery O2 Flow Rate FiO2 09/06/24 20:48 98.0 79 17 108/54 (72) 98 98.0 09/06/24 20:00 Nasal Cannula* 2 28 Total Intake and Output 09/05/24 09/05/24 09/06/24 15:00 23:00 07:00 Intake Total 800 ml 300 ml 883 ml Output Total 250 ml 525 ml Balance 800 ml 50 ml 358 ml medications Current Medications Medications Dose Ordered Sig/Jaime Route Start Time Stop Time Status Last Admin Dose Admin Acetaminophen/ Hydrocodone Bitart 1 tab Q4HP PRN PO 09/02/24 18:00 09/05/24 04:27 1 TAB Acetaminophen 650 mg Q6HP PRN PO 09/02/24 18:00 Nitroglycerin 0.4 mg Q5MINP PRN SL 09/02/24 18:00 Morphine Sulfate 2 mg Q30M PRN IV 09/02/24 18:00 Ceftriaxone Sodium 50 ml @ 100 mls/hr DAILY IV 09/02/24 18:00 09/06/24 09:22 100 MLS/HR Lorazepam 1 mg Q5MINP PRN IV 09/02/24 21:00 Lorazepam 1 mg ONCE PRN IV 09/02/24 21:00 Pantoprazole Sodium 40 mg DAILY IV 09/03/24 16:30 09/06/24 09:24 40 MG Buspirone HCl 7.5 mg Q12HR PO 09/03/24 22:00 09/06/24 09:37 7.5 MG Ipratropium [place] 0.5 mg Q6HR NEB 09/04/24 00:00 09/06/24 19:24 0.5 MG Oxybutynin Chloride 5 mg BID PO 09/03/24 22:00 09/06/24 09:24 5 MG Levetiracetam 1,250 mg BID@0600,1800 PO 09/05/24 06:00 09/06/24 18:04 1,250 MG Enoxaparin Sodium 60 mg Q12HR SC 09/05/24 10:00 09/06/24 09:23 60 MG objective Gen.: Patient lying in bed in no apparent distress. On supplemental oxygen. Head: Normocephalic, atraumatic. Eyes: EOMI/PERRLA. Ears: Normal hearing. Normal anatomy. Neck/trachea: Trachea midline, supple. Nose: Normal external anatomy. Mouth: Moist mucous membranes. Chest: Decreased air entry bilaterally. No wheezing or rhonchi. Cardiovascular: Positive S1, positive S2. Regular rate and rhythm. Abdomen: Positive bowel sounds in all 4 quadrants. Soft, non-tender, non- distended. : Deferred. Rectal: Deferred. Skin: Warm, dry. Intact. Extremities: 2+ radial pulses bilaterally. No lower extremity edema. Neuro: Awake, alert, oriented x2. No gross motor or sensory deficits. Cranial nerves II through XII intact. Gait not assessed. laboratory and microbiology Laboratory Tests 09/06/24 10:58 Test 09/06/24 10:58 Range/Units Serum Glucose 116 H 74-106 mg/dL Assessment/Plan Impression: Acute hypoxic respiratory failure Dependence on supplemental oxygen Chronic obstructive pulmonary disease, stable Acute metabolic encephalopathy Seizure disorder Events: Remains on supplemental oxygen, 3 LPM NC Taper O2 as tolerated Pt with epistaxis Started humidifier. Neurology recs appreciated. Continue antiepileptic - Keppra 1:1 sitter for safety. Patient is AAO x2. Monitor blood pressure - SBP in 90s. Continue amiodarone drip. AFib with RVR - 180 to 190s Pt received amiodarone bolus + amio drip; IV fluid bolus yesterday and heart rate improved. Cardiology recs appreciated (Dr. Niño) Elevated troponin Follow up Echo results. Continue bronchodilators Continue antibiotics Pain control Avoid oversedation DVT prophylaxis Labs and imaging reviewed. Rest of plan as noted below. Plan: Supplemental oxygen Titrate to keep O2 sats above 92%. Continue bronchodilators PRN Continue antibiotics Incentive spirometry Neurology recs appreciated Seizure disorder- Follow up EEG. Antiepileptic Monitor renal function. Monitor electrolytes. Supplement as necessary. Monitor ins and outs. DVT prophylaxis. Prognosis: Poor given patient's multiple co-morbidities. Rest of plan per hospitalist and other consultants. Thank you, ALEXA Grant, for allowing me to participate in this patient's care. Further recommendations will depend on the patient's clinical course. Please do not hesitate to contact me if you have any questions or concerns. This medical document was created using an electronic medical record system with [employer] dictation system. Although these documentations are being carefully reviewed, there may still be some phonetic and typographical changes. The errors are purely typographical, due to imperfection on the software program, and do not reflect any compromise in the patient's medical care. Plan discussed with: Patient, Other (BRIAN Vann) BRUNO MCGRATH MD Sep 06, 2024 21:57
[2024-09-07] VITALS (19 sets, daily range): BP systolic 85–104; BP diastolic 46–58; PULSE 80–123; RESP 16–100; TEMP 98–99.6; O2SAT 92–100
[2024-09-07 06:40] LABS: Basophils # (auto) 0 10 ^3/uL (0-0.2); Basophils % (auto) 0.2 % (0.0-2.0); Eosinophils # (auto) 0.4 10 ^3/uL (0-0.8); Eosinophils % (auto) 4.2 % (0.0-7.0); Hematocrit 38.8 % (36.0-46.0); Hemoglobin 13.1 g/dL (12.2-16.2); Lymphocytes # (auto) 1.4 10 ^3/uL (0.4-5.4); Mean Corpuscular Hemoglobin 33.1 pg (28.0-32.0); Mean Corpuscular Hgb Conc. 33.8 g/dL (32.0-36.0); Mean Corpuscular Volume 97.8 fL (80.0-100.0); Monocytes # (auto) 0.7 10 ^3/uL (0-1.3); Monocytes % (auto) 8.6 % (0.0-12.0); Neutrophils # (auto) 6.1 10 ^3/uL (1.6-8.6); Platelet Count (auto) 218 10^3/uL (140-450); Red Blood Cells 3.97 10^6/uL (4.0-5.20); Red Cell Distribution Width 13.5 % (11.8-14.3); White Blood Cell 8.5 10^3/uL (4.4-10.8)
[2024-09-07 06:52] LABS: Calcium 9.4 mg/dL (8.7-10.4); Chloride 103 mmol/L (98-107); Sodium 142 mmol/L (136-145)
[2024-09-07 06:53] LABS: Anion Gap 8 (5-15)
[2024-09-07 06:58] LABS: BUN/Creatinine Ratio 16.2 (10.0-20.0); Blood Urea Nitrogen 11 mg/dL (9-23); Glucose 101 mg/dL (74-106)
[2024-09-07 07:02] LABS: Carbon Dioxide 31 mmol/L (20-31); Potassium 3.4 mmol/L (3.5-5.1)
--- NOTE | 2024-09-07 12:01 | DVHPN2 ---
Progress Note - Dictate Date Seen: Sep 07, 2024 Medical Necessity Reason Pt with a Central, PICC or Fol: Yes The following are medically ne: Kimbrough Catheter Reason for kimbrough catheter: Strict I&O vital signs Vital Sign Date Time Temp Pulse Resp B/P (MAP) Pulse Ox O2 Delivery O2 Flow Rate FiO2 09/07/24 11:52 102 16 99 09/07/24 08:43 98.5 91/52 (65) 98.5 09/07/24 06:25 Nasal Cannula 2.0 09/07/24 06:25 28 Total Intake and Output 09/06/24 09/06/24 09/07/24 15:00 23:00 07:00 Intake Total 240 ml 360 ml 250 ml Output Total 700 ml 475 ml Balance 240 ml -340 ml -225 ml medications Current Medications Medications Dose Ordered Sig/Jaime Route Start Time Stop Time Status Last Admin Dose Admin Acetaminophen/ Hydrocodone Bitart 1 tab Q4HP PRN PO 09/02/24 18:00 09/05/24 04:27 1 TAB Acetaminophen 650 mg Q6HP PRN PO 09/02/24 18:00 Nitroglycerin 0.4 mg Q5MINP PRN SL 09/02/24 18:00 Morphine Sulfate 2 mg Q30M PRN IV 09/02/24 18:00 Lorazepam 1 mg Q5MINP PRN IV 09/02/24 21:00 Lorazepam 1 mg ONCE PRN IV 09/02/24 21:00 Pantoprazole Sodium 40 mg DAILY IV 09/03/24 16:30 09/07/24 10:48 40 MG Buspirone HCl 7.5 mg Q12HR PO 09/03/24 22:00 09/07/24 10:48 7.5 MG Ipratropium [place] 0.5 mg Q6HR NEB 09/04/24 00:00 09/07/24 11:42 0.5 MG Oxybutynin Chloride 5 mg BID PO 09/03/24 22:00 09/07/24 10:49 5 MG Levetiracetam 1,250 mg BID@0600,1800 PO 09/05/24 06:00 09/07/24 06:14 1,250 MG Enoxaparin Sodium 60 mg Q12HR SC 09/05/24 10:00 09/07/24 10:48 60 MG Linezolid 300 ml @ 150 mls/hr Q12HR IV 09/07/24 12:00 UNV objective General Appearance: alert, no distress HEENT: EOMI, PERRLA, normal external inspect of ears, no icterus, no nasal drainage Neck: no carotid bruit, no jugular venous distention (JVD), no lymphadenopathy Chest: normal thorax Respiratory: clear to auscultation, normal air movement Cardiovascular: regular rate and rhythm, no diastolic murmur, no jugular venous distention (JVD), no rub, no systolic murmur Abdominal: soft, no hepatomegaly, no mass, no splenomegaly, no tenderness Genitourinary: grossly normal external Musculoskeletal: no joint tenderness, no swelling Extremities: normal pulses, no calf tenderness, no clubbing, no cyanosis, no edema Skin: no bruising, no jaundice, no rash Neurological: alert, No focal deficit laboratory and microbiology Laboratory Tests 09/07/24 05:22 Test 09/07/24 05:22 Range/Units Serum Glucose 101 74-106 mg/dL Problem List 1. ALOC Plan: Monitor, neurology consult 2. Metabolic encephalopathy Plan: Monitor, CT brain, EEG, MRI of brain 3. Status epileptics Plan: Monitor, UA 4. Subclinical seizure Plan: Monitor, antiepileptics 5. Acute cystitis without hematuria Plan: Monitor, PPI,, DVT relaxes 6. Lactic acidosis most likely from seizure Plan: Monitor 7. A-fib with RVR Plan: Monitor, cardiology consult, amiodarone drip, monitor EKG Assessment/Plan Subjective: Patient is awake and alert. Objective: Patient appears to be forgetful. Patient was admitted for ALOC. I did seek at length with patient's niece Anh. According to Anh patient does not have any signs of dementia or memory deficits as a baseline. Patient is more awake. CT imaging is negative. Patient is unable to have MRI due to metal and a stimulator for her bladder and bowel. Urine culture shows Enterococcus Plan: Continue amiodarone. Monitor EKG. Plan for repeat CT of the head since unable to do MRI. Change antibiotics from Rocephin to Zyvox. Monitor mentation. Plan discussed with: Patient, Other LIBBY GLASER NP Sep 07, 2024 12:01
--- NOTE | 2024-09-07 12:11 | ECG ---
[facility] Test Date: 2024-09-07 Test Time: 12:09:32 Pat Name: SHANNAN GORDON Department: Respiratoy Room: 0214T B Gender: F Court Manager: Celestina : 1945 Requested By: FREDI DIAZ Order Number: [id number] Reading MD: Darren Sarabia Measurements Intervals [place] Rate: 106 P: 66 UT: 139 QRS: -1 QRSD: 96 T: 42 QT: 349 QTc: 464 Interpretive Statements Sinus tachycardia Probable left atrial enlargement RSR' in V1 or V2, right VCD or RVH Electronically Signed On 09-07-2024 21:06:46 PST by Darren Sarabia Please click the below link to view image of tracing.
--- NOTE | 2024-09-07 13:23 | DVHPN2 ---
Progress Note - Dictate Date Seen: Sep 07, 2024 Medical Necessity Reason Pt with a Central, PICC or Fol: Yes The following are medically ne: Kimbrough Catheter Reason for kimbrough catheter: Strict I&O Subjective Ms. Ivory is a 79 years old female with a history of hypertension, asthma, the patient was brought to the [facility] on 09/02/2024 with a chief company of altered mental status, I have seen and examined the patient, I have talked to her nurse and sitter, she is better, she is awake, she talks more withdrawn voice, she was oriented to person, place, but she does not know year and the month Socially appropriate, she follow commands Urinalysis, 09/02/2024: Unremarkable BUN/CR, 09/02/2024: WBC: 1, urine leukocyte esterase: Negative WBC/HB/PLT/MCV, 09/02/2024: 12.2/13.4/288/97.5 BMP, 09/02/2024: Unremarkable CMP, 09/03/2024: Unremarkable Glucose, 09/02/2024: 137 HGB A1c, 09/03/2024: For Lactic acid, 09/02/2024: 2.3/1.7 Vitamin B12, 09/03/2024:398 Lfolic acid, 09/03/2024: 35.84 TSH, 09/03/2024: 0.89 EEG, 09/04/24: Epileptiform discharge from the right hemisphere Chest x-ray, 09/02/2024: Pulmonary vascular congestion CT head, 09/02/2024: No evidence of acute intracranial abnormality vital signs Vital Sign Date Time Temp Pulse Resp B/P (MAP) Pulse Ox O2 Delivery O2 Flow Rate FiO2 09/07/24 11:52 102 16 99 09/07/24 08:43 98.5 91/52 (65) 98.5 09/07/24 06:25 Nasal Cannula 2.0 09/07/24 06:25 28 Total Intake and Output 09/06/24 09/06/24 09/07/24 15:00 23:00 07:00 Intake Total 240 ml 360 ml 250 ml Output Total 700 ml 475 ml Balance 240 ml -340 ml -225 ml medications Current Medications Medications Dose Ordered Sig/Jaime Route Start Time Stop Time Status Last Admin Dose Admin Acetaminophen/ Hydrocodone Bitart 1 tab Q4HP PRN PO 09/02/24 18:00 09/05/24 04:27 1 TAB Acetaminophen 650 mg Q6HP PRN PO 09/02/24 18:00 Nitroglycerin 0.4 mg Q5MINP PRN SL 09/02/24 18:00 Morphine Sulfate 2 mg Q30M PRN IV 09/02/24 18:00 Lorazepam 1 mg Q5MINP PRN IV 09/02/24 21:00 Lorazepam 1 mg ONCE PRN IV 09/02/24 21:00 Pantoprazole Sodium 40 mg DAILY IV 09/03/24 16:30 09/07/24 10:48 40 MG Buspirone HCl 7.5 mg Q12HR PO 09/03/24 22:00 09/07/24 10:48 7.5 MG Ipratropium [place] 0.5 mg Q6HR NEB 09/04/24 00:00 09/07/24 11:42 0.5 MG Oxybutynin Chloride 5 mg BID PO 09/03/24 22:00 09/07/24 10:49 5 MG Levetiracetam 1,250 mg BID@0600,1800 PO 09/05/24 06:00 09/07/24 06:14 1,250 MG Enoxaparin Sodium 60 mg Q12HR SC 09/05/24 10:00 09/07/24 10:48 60 MG Linezolid 300 ml @ 150 mls/hr Q12HR IV 09/07/24 12:00 objective General: the patient is well developed and nourished. No acute distress. MENTAL STATUS: Subjective SPEECH, LANGUAGE, HIGHER CORTICAL FUNCTION: Subjective CRANIAL NERVES: Pupils are equal, round and reactive. EOMs full and conjugate. No nystagmus. Facial sensation intact in all three divisions bilaterally. Mandibular strength intact. Facial muscles symmetrical and strength intact. SENSATION: Responds to light touch MOTOR: Normal tone in the upper and lower extremity. Normal muscle bulk. No fasciculations. No abnormal movements or posturing. Move the arms and legs with no problem REFLEXES: Deep tendon reflexes normal and symmetrical. No pathological reflexes. CEREBELLAR/COORDINATION: Deferred GAIT/STATION: deferred. laboratory and microbiology Laboratory Tests 09/07/24 05:22 Test 09/07/24 05:22 Range/Units Serum Glucose 101 74-106 mg/dL Problem List Altered mental status Metabolic encephalopathy Status epileptics Subclinical seizure Other central nervous system etiology Lactic acidosis Assessment/Plan Monitoring Supportive treatment Telemetry UDS EEG MR brain scan (stimulator is not MRI compatible) Keppra 1250 mg b.i.d. Ativan for seizure breakthrough Up to chair Physical therapy More recommendation per clinical course This medical document was created using an electronic medical record system with [employer] dictation system. Although this document has been carefully reviewed, there may still be some phonetic and typographical errors. These areas are purely typographical due to imperfections of the software programs, and do not reflect any compromise in the patient's medical care. Prognosis poor Plan discussed with: Other TYREL SCOTT MD Sep 07, 2024 13:23
--- NOTE | 2024-09-07 13:40 | DVHPN2 ---
Progress Note - Dictate Date Seen: Sep 07, 2024 Medical Necessity Reason Pt with a Central, PICC or Fol: Yes The following are medically ne: Kimbrough Catheter Reason for kimbrough catheter: Strict I&O Subjective Seen and examined at the bedside within telemetry. Relatively hypotensive. 250ml 0.9NS fluid bolus ordered. Chart reviewed vital signs Vital Sign Date Time Temp Pulse Resp B/P (MAP) Pulse Ox O2 Delivery O2 Flow Rate FiO2 09/07/24 11:52 102 16 99 09/07/24 08:43 98.5 91/52 (65) 98.5 09/07/24 06:25 Nasal Cannula 2.0 09/07/24 06:25 28 Total Intake and Output 09/06/24 09/06/24 09/07/24 15:00 23:00 07:00 Intake Total 240 ml 360 ml 250 ml Output Total 700 ml 475 ml Balance 240 ml -340 ml -225 ml medications Current Medications Medications Dose Ordered Sig/Jaime Route Start Time Stop Time Status Last Admin Dose Admin Acetaminophen/ Hydrocodone Bitart 1 tab Q4HP PRN PO 09/02/24 18:00 09/05/24 04:27 1 TAB Acetaminophen 650 mg Q6HP PRN PO 09/02/24 18:00 Nitroglycerin 0.4 mg Q5MINP PRN SL 09/02/24 18:00 Morphine Sulfate 2 mg Q30M PRN IV 09/02/24 18:00 Lorazepam 1 mg Q5MINP PRN IV 09/02/24 21:00 Lorazepam 1 mg ONCE PRN IV 09/02/24 21:00 Pantoprazole Sodium 40 mg DAILY IV 09/03/24 16:30 09/07/24 10:48 40 MG Buspirone HCl 7.5 mg Q12HR PO 09/03/24 22:00 09/07/24 10:48 7.5 MG Ipratropium Odell 0.5 mg Q6HR NEB 09/04/24 00:00 09/07/24 11:42 0.5 MG Oxybutynin Chloride 5 mg BID PO 09/03/24 22:00 09/07/24 10:49 5 MG Levetiracetam 1,250 mg BID@0600,1800 PO 09/05/24 06:00 09/07/24 06:14 1,250 MG Enoxaparin Sodium 60 mg Q12HR SC 09/05/24 10:00 09/07/24 10:48 60 MG Linezolid 300 ml @ 150 mls/hr Q12HR IV 09/07/24 12:00 laboratory and microbiology Laboratory Tests 09/07/24 05:22 Test 09/07/24 05:22 Range/Units Serum Glucose 101 74-106 mg/dL Assessment/Plan Assessment Paroxysmal atrial fibrillation/flutter with RVR, new onset Acute hypoxic respiratory failure on home home oxygen Abnormal HS troponin, likely secondary to above Metabolic encephalopathy Hypertension, history of COPD, history of Seizure disorder Plan/Recommendation Awaiting ordered 2D Echocardiogram Full AC for CVA prophylaxis is advised On Therapeutic Lovenox as for now Transition to DOAC upon discharge Amiodarone 200mg qhs for now Follow up Neurology recommendations Await ordered EEG as per Neurology Seizure precautions advised Proceed with close rate and rhythm surveillance Proceed with close hemodynamic surveillance Proceed with optimized blood pressure control Transfuse to sustain HGB level above 7.0 Sustain Magnesium level greater than 2.0 Sustain Potassium level greater than 4.0 Follow up renal function and electrolytes Management in telemetry Follow up sr technical sales consultant recommendations Will proceed to follow from a cardiac perspective Further recommendations per clinical progression All available diagnostic labs, EKG's, and images were personally reviewed Patient's status, findings, and plan of care was reviewed and discussed with supervising physician Dr. Niño, who is in agreement with current plan of care. Plan of care discussed with and agreed upon by patient / primary RN Prognosis: Guarded Thank you for allowing me to participate in the care of this patient. Further recommendations based on patients clinical course and progression, primary attending, and other consultants. Will continue to follow with primary attending. If you have any questions or concerns, please do not hesitate to contact me. A total of 75 minutes was spent reviewing the patient record, examining the patient, making a diagnostic and therapeutic plan, discussing this plan with medical personnel, following up on diagnostic studies and following the patient for clinical stability excluding any and all procedures. At least 50% of this time was spent in direct, [id number] contact. Plan discussed with: Patient (Patient and Primary RN ) EMILYFREDI Guillermo MENDOSA Sep 07, 2024 13:40
--- NOTE | 2024-09-07 13:55 | DVH ---
CT STROKE CTH INDICATION: rule out stroke EXAM DATE: 09/07/2024 01:38 PM COMPARISON: CT HEAD WITHOUT CONTRAST on DOS: 09/02/24 RADIATION DOSE: CTDIvol: 55.65 mGy, DLP: 1096.6 mGy*cm PROCEDURE: CT scans of the head were obtained from the vertex to the skull base. Sagittal and coronal reconstructions were provided. All CT scans at this medical facility are performed using dose modulation techniques as appropriate t o a performed exam including the following: Automated exposure control was utilized; adjustment of th e MA and/or KV according to patient size; and use of iterative reconstruction technique. FINDINGS: There is sulcal and ventricular prominence. The brainshows normal morphology and rangel-whi te matter differentiation, without intracranial hemorrhage, extra-axial fluid collection, mass effect or acute large vessel infarct. The ventricles are normal in size. The basal cisterns are patent. The skull and visible facial bones are intact. The paranasal sinuses, mastoid air cells and middle ear c avities are well-aerated. The soft tissues of the scalp are unremarkable. IMPRESSION: No acute intracranial abnormality.
[2024-09-07] MEDS: AMIODARONE HCL 200 MG TAB PO ONE (14:43)
[2024-09-07] MEDS: SODIUM CHLORIDE 0.9% 1,800 ML IV ONE (14:44)
[2024-09-07] MEDS: LINEZOLID 600MG/300ML 300 ML IV SCH (14:44)
[2024-09-07 16:15] LABS: Triglycerides 78 mg/dL (< 150)
[2024-09-07 16:17] LABS: Cholesterol 171 mg/dL (< 200); HDL Cholesterol 57 mg/dL (40-59)
[2024-09-07 16:21] LABS: LDL Cholesterol 107 mg/dL (< 100)
--- NOTE | 2024-09-07 16:28 | DVH ---
CHEST RADIOGRAPH Indication: vascular congestion Technique: Single frontal view of the chest was obtained COMPARISON: XY CHEST PORTABLE on DOS: 09/02/24 FINDINGS: Lines and Tubes: None Lungs: Clear Pleura: No effusion. No pneumothorax. Cardiomediastinal contours: Unremarkable Bones: Unremarkable IMPRESSION: 1. Mild COPD 2. No consolidation 3. No CHF pattern 4. Minimally increased interstitial markings in the lung bases. 5. 3mm granuloma in the right lower lung field peripherally
--- NOTE | 2024-09-07 21:37 | DVHPN2 ---
Progress Note - Dictate Date Seen: Sep 07, 2024 Medical Necessity Reason Pt with a Central, PICC or Fol: Yes The following are medically ne: Kimbrough Catheter Reason for kimbrough catheter: Strict I&O Subjective Patient seen and examined at bedside. Remains on supplemental oxygen Overnight events reviewed. vital signs Vital Sign Date Time Temp Pulse Resp B/P (MAP) Pulse Ox O2 Delivery O2 Flow Rate FiO2 09/07/24 19:50 118 100 09/07/24 19:42 92 09/07/24 19:42 Room Air* 0 21 09/07/24 17:00 99.6 94/54 (67) 99.6 Total Intake and Output 09/06/24 09/06/24 09/07/24 15:00 23:00 07:00 Intake Total 240 ml 360 ml 250 ml Output Total 700 ml 475 ml Balance 240 ml -340 ml -225 ml medications Current Medications Medications Dose Ordered Sig/Jaime Route Start Time Stop Time Status Last Admin Dose Admin Acetaminophen/ Hydrocodone Bitart 1 tab Q4HP PRN PO 09/02/24 18:00 09/05/24 04:27 1 TAB Acetaminophen 650 mg Q6HP PRN PO 09/02/24 18:00 Nitroglycerin 0.4 mg Q5MINP PRN SL 09/02/24 18:00 Morphine Sulfate 2 mg Q30M PRN IV 09/02/24 18:00 Lorazepam 1 mg Q5MINP PRN IV 09/02/24 21:00 Lorazepam 1 mg ONCE PRN IV 09/02/24 21:00 Pantoprazole Sodium 40 mg DAILY IV 09/03/24 16:30 09/07/24 10:48 40 MG Buspirone HCl 7.5 mg Q12HR PO 09/03/24 22:00 09/07/24 21:10 7.5 MG Ipratropium [place] 0.5 mg Q6HR NEB 09/04/24 00:00 09/07/24 19:42 0.5 MG Oxybutynin Chloride 5 mg BID PO 09/03/24 22:00 09/07/24 21:10 5 MG Levetiracetam 1,250 mg BID@0600,1800 PO 09/05/24 06:00 09/07/24 18:31 1,250 MG Enoxaparin Sodium 60 mg Q12HR SC 09/05/24 10:00 09/07/24 21:11 60 MG Linezolid 300 ml @ 150 mls/hr Q12HR IV 09/07/24 12:00 09/07/24 21:10 150 MLS/HR Amiodarone HCl 200 mg HS PO 09/08/24 22:00 objective Gen.: Patient lying in bed in no apparent distress. On supplemental oxygen. Head: Normocephalic, atraumatic. Eyes: EOMI/PERRLA. Ears: Normal hearing. Normal anatomy. Neck/trachea: Trachea midline, supple. Nose: Normal external anatomy. Mouth: Moist mucous membranes. Chest: Decreased air entry bilaterally. No wheezing or rhonchi. Cardiovascular: Positive S1, positive S2. Regular rate and rhythm. Abdomen: Positive bowel sounds in all 4 quadrants. Soft, non-tender, non- distended. : Deferred. Rectal: Deferred. Skin: Warm, dry. Intact. Extremities: 2+ radial pulses bilaterally. No lower extremity edema. Neuro: Awake, alert, oriented x2. No gross motor or sensory deficits. Cranial nerves II through XII intact. Gait not assessed. laboratory and microbiology Laboratory Tests 09/07/24 05:22 Test 09/07/24 05:22 Range/Units Serum Glucose 101 74-106 mg/dL Assessment/Plan Impression: Acute hypoxic respiratory failure Dependence on supplemental oxygen Chronic obstructive pulmonary disease, stable Acute metabolic encephalopathy Seizure disorder Events: Remains on supplemental oxygen, 2 LPM NC Taper O2 as tolerated No seizures Improved mentation Patient is AAO x2. 1:1 sitter for safety. Pt with epistaxis, started humidifier. Head of bed elevation Aspiration precautions Neurology recs appreciated. Continue antiepileptic - Keppra Seizure precautions Monitor blood pressure. On amiodarone PO. Elevated troponin Follow up Echo results. Continue bronchodilators PRN Continue antibiotics Improved swallowing DVT prophylaxis Labs and imaging reviewed. Rest of plan as noted below. Plan: Supplemental oxygen Titrate to keep O2 sats above 92%. Continue bronchodilators PRN Continue antibiotics Incentive spirometry Neurology recs appreciated Seizure disorder- Follow up EEG. Antiepileptic Monitor renal function. Monitor electrolytes. Supplement as necessary. Monitor ins and outs. DVT prophylaxis. Prognosis: Poor given patient's multiple co-morbidities. Rest of plan per hospitalist and other consultants. Thank you, ALEXA Grant, for allowing me to participate in this patient's care. Further recommendations will depend on the patient's clinical course. Please do not hesitate to contact me if you have any questions or concerns. This medical document was created using an electronic medical record system with [employer] dictation system. Although these documentations are being carefully reviewed, there may still be some phonetic and typographical changes. The errors are purely typographical, due to imperfection on the software program, and do not reflect any compromise in the patient's medical care. Plan discussed with: Patient, Other (BRIAN Munoz) BRUNO MCGRATH MD Sep 07, 2024 21:37
[2024-09-07] MEDS ORDERED: AMIODARONE HCL 200 MG TAB PO SCH (22:00)
[2024-09-08] VITALS (18 sets, daily range): BP systolic 90–96; BP diastolic 52–62; PULSE 78–110; RESP 16–98; TEMP 97.8–100.3; O2SAT 18–100
--- NOTE | 2024-09-08 06:32 | DVHPN2 ---
Progress Note - Dictate Date Seen: Sep 08, 2024 Medical Necessity Reason Pt with a Central, PICC or Fol: Yes The following are medically ne: Kimbrough Catheter Reason for kimbrough catheter: Strict I&O Subjective Seen and examined at the bedside within telemetry. Chart reviewed. vital signs Vital Sign Date Time Temp Pulse Resp B/P (MAP) Pulse Ox O2 Delivery O2 Flow Rate FiO2 09/08/24 06:18 100 18 99 09/08/24 06:11 Nasal Cannula 2.0 09/08/24 06:11 28 09/08/24 04:42 97.8 90/52 (65) 97.8 Total Intake and Output 09/07/24 09/07/24 09/08/24 15:00 23:00 07:00 Intake Total 905 ml 350 ml Output Total 250 ml 550 ml Balance 655 ml -200 ml medications Current Medications Medications Dose Ordered Sig/Jaime Route Start Time Stop Time Status Last Admin Dose Admin Acetaminophen/ Hydrocodone Bitart 1 tab Q4HP PRN PO 09/02/24 18:00 09/05/24 04:27 1 TAB Acetaminophen 650 mg Q6HP PRN PO 09/02/24 18:00 Nitroglycerin 0.4 mg Q5MINP PRN SL 09/02/24 18:00 Morphine Sulfate 2 mg Q30M PRN IV 09/02/24 18:00 Lorazepam 1 mg Q5MINP PRN IV 09/02/24 21:00 Lorazepam 1 mg ONCE PRN IV 09/02/24 21:00 Pantoprazole Sodium 40 mg DAILY IV 09/03/24 16:30 09/07/24 10:48 40 MG Buspirone HCl 7.5 mg Q12HR PO 09/03/24 22:00 09/07/24 21:10 7.5 MG Ipratropium Leon 0.5 mg Q6HR NEB 09/04/24 00:00 09/08/24 06:11 0.5 MG Oxybutynin Chloride 5 mg BID PO 09/03/24 22:00 09/07/24 21:10 5 MG Levetiracetam 1,250 mg BID@0600,1800 PO 09/05/24 06:00 09/08/24 06:07 1,250 MG Enoxaparin Sodium 60 mg Q12HR SC 09/05/24 10:00 09/07/24 21:11 60 MG Linezolid 300 ml @ 150 mls/hr Q12HR IV 09/07/24 12:00 09/07/24 21:10 150 MLS/HR Amiodarone HCl 200 mg BID PO 09/08/24 10:00 laboratory and microbiology Laboratory Tests 09/07/24 05:22 Test 09/07/24 05:22 Range/Units Serum Glucose 101 74-106 mg/dL Assessment/Plan Assessment Paroxysmal atrial fibrillation/flutter with RVR, new onset Acute hypoxic respiratory failure on home home oxygen Abnormal HS troponin, likely secondary to above Metabolic encephalopathy Hypertension, history of COPD, history of Seizure disorder Hyperlipidemia Plan/Recommendation Awaiting ordered 2D Echocardiogram Full AC for CVA prophylaxis is advised On Therapeutic Lovenox as for now Transition to DOAC upon discharge Up-titrate Amiodarone to 200mg qhs bid for now Started on Midodrine for blood pressure support Supplemental oxygen as warranted Atorvastatin 20mg daily Follow up Neurology recommendations Seizure precautions advised Proceed with close rate and rhythm surveillance Proceed with close hemodynamic surveillance Proceed with optimized blood pressure control Transfuse to sustain HGB level above 7.0 Sustain Magnesium level greater than 2.0 Sustain Potassium level greater than 4.0 Follow up renal function and electrolytes Management in telemetry Follow up [employer] financial[employer] consultant recommendations Will proceed to follow from a cardiac perspective Further recommendations per clinical progression All available diagnostic labs, EKG's, and images were personally reviewed Patient's status, findings, and plan of care was reviewed and discussed with supervising physician Dr. Niño, who is in agreement with current plan of care. Plan of care discussed with and agreed upon by patient / primary RN Prognosis: Guarded Thank you for allowing me to participate in the care of this patient. Further recommendations based on patients clinical course and progression, primary attending, and other consultants. Will continue to follow with primary attending. If you have any questions or concerns, please do not hesitate to contact me. A total of 75 minutes was spent reviewing the patient record, examining the patient, making a diagnostic and therapeutic plan, discussing this plan with medical personnel, following up on diagnostic studies and following the patient for clinical stability excluding any and all procedures. At least 50% of this time was spent in direct, [id number] contact. Plan discussed with: Patient (Patient and Primary RN ) FREDI DIAZ Sep 08, 2024 06:32
--- NOTE | 2024-09-08 08:41 | DVHPN2 ---
Progress Note - Dictate Date Seen: Sep 08, 2024 Medical Necessity Reason Pt with a Central, PICC or Fol: Yes The following are medically ne: Kimbrough Catheter Reason for kimbrough catheter: Strict I&O vital signs Vital Sign Date Time Temp Pulse Resp B/P (MAP) Pulse Ox O2 Delivery O2 Flow Rate FiO2 09/08/24 06:18 100 18 99 09/08/24 06:11 Nasal Cannula 2.0 09/08/24 06:11 28 09/08/24 04:42 97.8 90/52 (65) 97.8 Total Intake and Output 09/07/24 09/07/24 09/08/24 15:00 23:00 07:00 Intake Total 905 ml 350 ml Output Total 250 ml 550 ml Balance 655 ml -200 ml medications Current Medications Medications Dose Ordered Sig/Jaime Route Start Time Stop Time Status Last Admin Dose Admin Acetaminophen/ Hydrocodone Bitart 1 tab Q4HP PRN PO 09/02/24 18:00 09/05/24 04:27 1 TAB Acetaminophen 650 mg Q6HP PRN PO 09/02/24 18:00 Nitroglycerin 0.4 mg Q5MINP PRN SL 09/02/24 18:00 Morphine Sulfate 2 mg Q30M PRN IV 09/02/24 18:00 Lorazepam 1 mg Q5MINP PRN IV 09/02/24 21:00 Lorazepam 1 mg ONCE PRN IV 09/02/24 21:00 Pantoprazole Sodium 40 mg DAILY IV 09/03/24 16:30 09/07/24 10:48 40 MG Buspirone HCl 7.5 mg Q12HR PO 09/03/24 22:00 09/07/24 21:10 7.5 MG Ipratropium [place] 0.5 mg Q6HR NEB 09/04/24 00:00 09/08/24 06:11 0.5 MG Oxybutynin Chloride 5 mg BID PO 09/03/24 22:00 09/07/24 21:10 5 MG Levetiracetam 1,250 mg BID@0600,1800 PO 09/05/24 06:00 09/08/24 06:07 1,250 MG Enoxaparin Sodium 60 mg Q12HR SC 09/05/24 10:00 09/07/24 21:11 60 MG Linezolid 300 ml @ 150 mls/hr Q12HR IV 09/07/24 12:00 09/07/24 21:10 150 MLS/HR Amiodarone HCl 200 mg BID PO 09/08/24 10:00 objective General Appearance: alert, no distress HEENT: EOMI, PERRLA, normal external inspect of ears, no icterus, no nasal drainage Neck: no carotid bruit, no jugular venous distention (JVD), no lymphadenopathy Chest: normal thorax Respiratory: clear to auscultation, normal air movement Cardiovascular: regular rate and rhythm, no diastolic murmur, no jugular venous distention (JVD), no rub, no systolic murmur Abdominal: soft, no hepatomegaly, no mass, no splenomegaly, no tenderness Genitourinary: grossly normal external Musculoskeletal: no joint tenderness, no swelling Extremities: normal pulses, no calf tenderness, no clubbing, no cyanosis, no edema Skin: no bruising, no jaundice, no rash Neurological: alert, No focal deficit laboratory and microbiology Laboratory Tests 09/07/24 05:22 Test 09/07/24 05:22 Range/Units Serum Glucose 101 74-106 mg/dL Problem List 1. ALOC Plan: Monitor, neurology consult 2. Metabolic encephalopathy Plan: Monitor, CT brain, EEG, MRI of brain 3. Status epileptics Plan: Monitor, UA 4. Subclinical seizure Plan: Monitor, antiepileptics 5. Acute cystitis without hematuria Plan: Monitor, PPI,, DVT relaxes 6. Lactic acidosis most likely from seizure Plan: Monitor 7. A-fib with RVR Plan: Monitor, cardiology consult, amiodarone drip, monitor EKG Assessment/Plan Subjective Patient is awake and alert. Objective Patient is still having some forgetfulness. I did speak with patients niece at bedside. Patient was admitted on September 02, 2024 for ALOC. Patient was nonverbal. MRI imaging is negative. Patient was found to have breakthrough seizure. Patient then developed hypotension. She was found to have a UTI. Patient was given IV fluids. Patient also developed A-fib RVR. Antibiotics were adjusted due to some drug resistance noted on urine culture. Patient is now on Zyvox. Amiodarone dose was adjusted today due to heart rate being in the 1 teens to 120s. Patient was started on midodrine due to hypotension. Plan Continue physical therapy. Continue midodrine for hypotension. Continue amiodarone for A-fib with RVR. Continue antibiotics for drug-resistant UTI. Monitor neurostatus. Plan discussed with: Patient, Other LIBBY GLASER NP Sep 08, 2024 08:41
[2024-09-08] MEDS: AMIODARONE HCL 200 MG TAB PO SCH (09:35)
--- NOTE | 2024-09-08 10:48 | DVHPN2 ---
Progress Note - Dictate Date Seen: Sep 08, 2024 Medical Necessity Reason Pt with a Central, PICC or Fol: Yes The following are medically ne: Kimbrough Catheter Reason for kimbrough catheter: Strict I&O Subjective Ms. Ivory is a 79 years old female with a history of hypertension, asthma, the patient was brought to the [facility] on 09/02/2024 with a chief company of altered mental status, have seen and examined the patient, I have talked to her nurse and sitter, she keeps improving, she is awake, she talks more, she is oriented to person, place, but she does not know year and the month Socially appropriate, she follow commands Urinalysis, 09/02/2024: Unremarkable BUN/CR, 09/02/2024: WBC: 1, urine leukocyte esterase: Negative WBC/HB/PLT/MCV, 09/02/2024: 12.2/13.4/288/97.5 BMP, 09/02/2024: Unremarkable CMP, 09/03/2024: Unremarkable Glucose, 09/02/2024: 137 HGB A1c, 09/03/2024: For Lactic acid, 09/02/2024: 2.3/1.7 Vitamin B12, 09/03/2024:398 Lfolic acid, 09/03/2024: 35.84 TSH, 09/03/2024: 0.89 EEG, 09/04/24: Epileptiform discharge from the right hemisphere Chest x-ray, 09/02/2024: Pulmonary vascular congestion CT head, 09/02/2024: No evidence of acute intracranial abnormality vital signs Vital Sign Date Time Temp Pulse Resp B/P (MAP) Pulse Ox O2 Delivery O2 Flow Rate FiO2 09/08/24 06:18 100 18 99 09/08/24 06:11 Nasal Cannula 2.0 09/08/24 06:11 28 09/08/24 04:42 97.8 90/52 (65) 97.8 Total Intake and Output 09/07/24 09/07/24 09/08/24 15:00 23:00 07:00 Intake Total 905 ml 350 ml Output Total 250 ml 550 ml Balance 655 ml -200 ml medications Current Medications Medications Dose Ordered Sig/Jaime Route Start Time Stop Time Status Last Admin Dose Admin Acetaminophen/ Hydrocodone Bitart 1 tab Q4HP PRN PO 09/02/24 18:00 09/05/24 04:27 1 TAB Acetaminophen 650 mg Q6HP PRN PO 09/02/24 18:00 Nitroglycerin 0.4 mg Q5MINP PRN SL 09/02/24 18:00 Morphine Sulfate 2 mg Q30M PRN IV 09/02/24 18:00 Lorazepam 1 mg Q5MINP PRN IV 09/02/24 21:00 Lorazepam 1 mg ONCE PRN IV 09/02/24 21:00 Pantoprazole Sodium 40 mg DAILY IV 09/03/24 16:30 09/08/24 09:34 40 MG Buspirone HCl 7.5 mg Q12HR PO 09/03/24 22:00 09/08/24 09:35 7.5 MG Ipratropium [place] 0.5 mg Q6HR NEB 09/04/24 00:00 09/08/24 06:11 0.5 MG Oxybutynin Chloride 5 mg BID PO 09/03/24 22:00 09/08/24 09:35 5 MG Levetiracetam 1,250 mg BID@0600,1800 PO 09/05/24 06:00 09/08/24 06:07 1,250 MG Enoxaparin Sodium 60 mg Q12HR SC 09/05/24 10:00 09/08/24 09:34 60 MG Linezolid 300 ml @ 150 mls/hr Q12HR IV 09/07/24 12:00 09/08/24 09:35 150 MLS/HR Amiodarone HCl 200 mg BID PO 09/08/24 10:00 09/08/24 09:35 200 MG Atorvastatin Calcium 20 mg HS PO 09/08/24 22:00 Midodrine 10 mg TID@0600,1200,1800 PO 09/08/24 12:00 objective General: the patient is well developed and nourished. No acute distress. MENTAL STATUS: Subjective SPEECH, LANGUAGE, HIGHER CORTICAL FUNCTION: No aphasia or dysarthria CRANIAL NERVES: Pupils are equal, round and reactive. EOMs full and conjugate. No nystagmus. Facial sensation intact in all three divisions bilaterally. Mandibular strength intact. Facial muscles symmetrical and strength intact. SENSATION: Responds to light touch MOTOR: Normal tone in the upper and lower extremity. Normal muscle bulk. No fasciculations. No abnormal movements or posturing. Move the arms and legs with no problem REFLEXES: Deep tendon reflexes normal and symmetrical. No pathological reflexes. CEREBELLAR/COORDINATION: Deferred GAIT/STATION: deferred. laboratory and microbiology Laboratory Tests 09/07/24 05:22 Test 09/07/24 05:22 Range/Units Serum Glucose 101 74-106 mg/dL Problem List Altered mental status Metabolic encephalopathy Status epileptics Subclinical seizure Other central nervous system etiology Lactic acidosis Assessment/Plan Monitoring Supportive treatment Telemetry UDS EEG MR brain scan (stimulator is not MRI compatible) Keppra 1250 mg b.i.d. Ativan for seizure breakthrough Up to chair Physical therapy More recommendation per clinical course This medical document was created using an electronic medical record system with [employer] dictation system. Although this document has been carefully reviewed, there may still be some phonetic and typographical errors. These areas are purely typographical due to imperfections of the software programs, and do not reflect any compromise in the patient's medical care. Prognosis poor Plan discussed with: Other TYREL SCOTT MD Sep 08, 2024 10:48
[2024-09-08] MEDS: MIDODRINE HCL 10 MG TAB PO SCH (12:09)
[2024-09-08] MEDS ORDERED: ONDANSETRON HCL 4 MG/2 ML VIAL IV PRN (14:30)
--- NOTE | 2024-09-08 15:50 | DVH ---
EXAM: XY R KNEE 2V XRAY CLINICAL INDICATION: swelling TECHNIQUE: XY R KNEE 2V XRAY Comparison: None FINDINGS/IMPRESSION: There is no evidence of acute fracture or dislocation. Advanced right knee osteoarthritis The alignment is anatomical. There is no radiopaque foreign body.
--- NOTE | 2024-09-08 17:57 | DVHSR ---
APPROVED REPORT EXAM: Two-dimensional and M-mode echocardiogram with Doppler and color Doppler. Blood Pressure: 99/56 mmHg INDICATION af rvr RISK FACTORS Height: 5'6", Weight: 134 DIMENSIONS LVDd (3.8-5.7cm)LA (2D)3.2 (1.9-4.0cm)Aortic Root3.6 (2.0-3.7cm) LVDs (2.5-4.0cm)LA (MM) (1.9-4.0cm)Aortic Cusp Exc1.6 (1.5-2.0cm) EF (%) 60.0 (55-70%)Rt. Atrium4.0 (1.9-4.0cm)Asc. Aorta cm Mitral Valve MitralMitral Stenosis E wave0.57m/sMV Mean GR.mmHg A wave0.95m/sMV Peak GR.mmHg E/A ratio0.62D MVAcm2 DECEL [id number] 1/2 Timems Aortic Valve Aortic ValveAortic Stenosis V11.12m/Yamli Mean GR.3mmHg V21.18m/Yamil Peak GR.6mmHg LVOT Diameter1.8 (1.8-2.4cm)Doppler AVA2.41cm2 Tricuspid Valve TR Velocity2.15m/s [id number] Other Information Technically limited study due to body habitus, patient altered moving and grabbing at probe. Conclusion Technically good study. Sinus rhythm. Right atrial enlargement. Mild left atrial enlargement. Mild mitral annular calcification. EF of 55% with normal RV function. Dopplers unremarkable No pericardial effusion masses or vegetations.
--- NOTE | 2024-09-08 21:23 | DVHPN2 ---
Progress Note - Dictate Date Seen: Sep 08, 2024 Medical Necessity Reason Pt with a Central, PICC or Fol: Yes The following are medically ne: Kimbrough Catheter Reason for kimbrough catheter: Strict I&O Subjective Patient seen and examined at bedside. Remains on supplemental oxygen Overnight events reviewed. vital signs Vital Sign Date Time Temp Pulse Resp B/P (MAP) Pulse Ox O2 Delivery O2 Flow Rate FiO2 09/08/24 20:12 88 18 97 09/08/24 20:02 Nasal Cannula 2.0 09/08/24 20:02 28 09/08/24 16:55 98.5 93/62 (72) 98.5 Total Intake and Output 09/07/24 09/07/24 09/08/24 15:00 23:00 07:00 Intake Total 905 ml 350 ml Output Total 250 ml 550 ml Balance 655 ml -200 ml medications Current Medications Medications Dose Ordered Sig/Jaime Route Start Time Stop Time Status Last Admin Dose Admin Acetaminophen/ Hydrocodone Bitart 1 tab Q4HP PRN PO 09/02/24 18:00 09/05/24 04:27 1 TAB Acetaminophen 650 mg Q6HP PRN PO 09/02/24 18:00 Nitroglycerin 0.4 mg Q5MINP PRN SL 09/02/24 18:00 Morphine Sulfate 2 mg Q30M PRN IV 09/02/24 18:00 Lorazepam 1 mg Q5MINP PRN IV 09/02/24 21:00 Lorazepam 1 mg ONCE PRN IV 09/02/24 21:00 Pantoprazole Sodium 40 mg DAILY IV 09/03/24 16:30 09/08/24 09:34 40 MG Buspirone HCl 7.5 mg Q12HR PO 09/03/24 22:00 09/08/24 09:35 7.5 MG Ipratropium [place] 0.5 mg Q6HR NEB 09/04/24 00:00 09/08/24 20:02 0.5 MG Oxybutynin Chloride 5 mg BID PO 09/03/24 22:00 09/08/24 09:35 5 MG Levetiracetam 1,250 mg BID@0600,1800 PO 09/05/24 06:00 09/08/24 18:04 1,250 MG Enoxaparin Sodium 60 mg Q12HR SC 09/05/24 10:00 09/08/24 09:34 60 MG Linezolid 300 ml @ 150 mls/hr Q12HR IV 09/07/24 12:00 09/08/24 09:35 150 MLS/HR Amiodarone HCl 200 mg BID PO 09/08/24 10:00 09/08/24 09:35 200 MG Atorvastatin Calcium 20 mg HS PO 09/08/24 22:00 Midodrine 10 mg TID@0600,1200,1800 PO 09/08/24 12:00 09/08/24 18:04 10 MG Ondansetron HCl 4 mg Q4HPRN PRN IV 09/08/24 14:30 objective Gen.: Patient lying in bed in no apparent distress. On supplemental oxygen. Head: Normocephalic, atraumatic. Eyes: EOMI/PERRLA. Ears: Normal hearing. Normal anatomy. Neck/trachea: Trachea midline, supple. Nose: Normal external anatomy. Mouth: Moist mucous membranes. Chest: Decreased air entry bilaterally. No wheezing or rhonchi. Cardiovascular: Positive S1, positive S2. Regular rate and rhythm. Abdomen: Positive bowel sounds in all 4 quadrants. Soft, non-tender, non- distended. : Deferred. Rectal: Deferred. Skin: Warm, dry. Intact. Extremities: 2+ radial pulses bilaterally. No lower extremity edema. Neuro: Awake, alert, oriented x2. No gross motor or sensory deficits. Cranial nerves II through XII intact. Gait not assessed. laboratory and microbiology Laboratory Tests 09/07/24 05:22 Test 09/07/24 05:22 Range/Units Serum Glucose 101 74-106 mg/dL Assessment/Plan Impression: Acute hypoxic respiratory failure Dependence on supplemental oxygen Chronic obstructive pulmonary disease, stable Acute metabolic encephalopathy Seizure disorder Events: Remains on supplemental oxygen, 2 LPM NC Taper O2 as tolerated Patient is seizure-free today Improved mentation 1:1 sitter for safety. Head of bed elevation Aspiration precautions Neurology recs appreciated. Remains on antiepileptic - Keppra Seizure precautions Monitor blood pressure. On midodrine to keep BP at goal. On amiodarone PO. Elevated troponin Follow up Echo results. Continue bronchodilators PRN Continue antibiotics Improved swallowing DVT prophylaxis Patient w/ right knee swelling Obtained right knee x-ray, demonstrates no evidence of acute fracture or dislocation; advanced right knee osteoarthritis Uric acid normal. Disposition per hospitalist. Labs and imaging reviewed. Rest of plan as noted below. Plan: Supplemental oxygen Titrate to keep O2 sats above 92%. Continue bronchodilators PRN Continue antibiotics Incentive spirometry Neurology recs appreciated Seizure disorder- Follow up EEG. Antiepileptic Monitor renal function. Monitor electrolytes. Supplement as necessary. Monitor ins and outs. DVT prophylaxis. Prognosis: Poor given patient's multiple co-morbidities. Rest of plan per hospitalist and other consultants. Thank you, ALEXA Grant, for allowing me to participate in this patient's care. Further recommendations will depend on the patient's clinical course. Please do not hesitate to contact me if you have any questions or concerns. This medical document was created using an electronic medical record system with [employer] computerized dictation system. Although these documentations are being carefully reviewed, there may still be some phonetic and typographical changes. The errors are purely typographical, due to imperfection on the software program, and do not reflect any compromise in the patient's medical care. Dietary Evaluation Review Comments: Improve and monitor PO intake to meet 75% of her needs Expected Outcomes/Goals: improved lab values Plan discussed with: Patient, Other (BRIAN Munoz) BRUNO MCGRATH MD Sep 08, 2024 21:23
[2024-09-08] MEDS: ATORVASTATIN 20 MG TAB PO SCH (21:28)
[2024-09-08] MEDS ORDERED: AMIODARONE HCL 200 MG TAB PO SCH ×2 (22:00)
[2024-09-09] VITALS (13 sets, daily range): BP systolic 88–142; BP diastolic 51–90; PULSE 62–80; RESP 14–19; TEMP 98–98.8; O2SAT 95–100
[2024-09-09 06:30] LABS: Anion Gap 6 (5-15); Carbon Dioxide 30 mmol/L (20-31); Chloride 103 mmol/L (98-107); Potassium 3.9 mmol/L (3.5-5.1); Sodium 139 mmol/L (136-145)
[2024-09-09 06:32] LABS: Calcium 9.3 mg/dL (8.7-10.4)
[2024-09-09 06:36] LABS: Glucose 99 mg/dL (74-106)
[2024-09-09 06:37] LABS: Magnesium 2.1 mg/dL (1.6-2.6)
[2024-09-09 06:39] LABS: Phosphorus 3.4 mg/dL (2.4-5.1)
--- NOTE | 2024-09-09 07:52 | DVHPN2 ---
Progress Note - Dictate Date Seen: Sep 09, 2024 Medical Necessity Reason Pt with a Central, PICC or Fol: Yes The following are medically ne: Kimbrough Catheter Reason for kimbrough catheter: Strict I&O Subjective Seen and examined at the bedside within telemetry. Chart reviewed. vital signs Vital Sign Date Time Temp Pulse Resp B/P (MAP) Pulse Ox O2 Delivery O2 Flow Rate FiO2 09/09/24 06:08 74 18 100 09/09/24 06:02 Nasal Cannula 2.0 09/09/24 06:02 28 09/09/24 05:00 98.4 94/54 (67) 98.4 Total Intake and Output 09/08/24 09/08/24 09/09/24 15:00 23:00 07:00 Intake Total 1050 ml 100 ml Output Total 1300 ml 700 ml Balance -250 ml -600 ml medications Current Medications Medications Dose Ordered Sig/Jaime Route Start Time Stop Time Status Last Admin Dose Admin Acetaminophen/ Hydrocodone Bitart 1 tab Q4HP PRN PO 09/02/24 18:00 09/05/24 04:27 1 TAB Acetaminophen 650 mg Q6HP PRN PO 09/02/24 18:00 Nitroglycerin 0.4 mg Q5MINP PRN SL 09/02/24 18:00 Morphine Sulfate 2 mg Q30M PRN IV 09/02/24 18:00 Lorazepam 1 mg Q5MINP PRN IV 09/02/24 21:00 Lorazepam 1 mg ONCE PRN IV 09/02/24 21:00 Pantoprazole Sodium 40 mg DAILY IV 09/03/24 16:30 09/08/24 09:34 40 MG Buspirone HCl 7.5 mg Q12HR PO 09/03/24 22:00 09/08/24 21:27 7.5 MG Ipratropium [place] 0.5 mg Q6HR NEB 09/04/24 00:00 09/09/24 06:02 0.5 MG Oxybutynin Chloride 5 mg BID PO 09/03/24 22:00 09/08/24 21:27 5 MG Levetiracetam 1,250 mg BID@0600,1800 PO 09/05/24 06:00 09/09/24 05:19 1,250 MG Enoxaparin Sodium 60 mg Q12HR SC 09/05/24 10:00 09/08/24 21:28 60 MG Linezolid 300 ml @ 150 mls/hr Q12HR IV 09/07/24 12:00 09/08/24 21:27 150 MLS/HR Amiodarone HCl 200 mg BID PO 09/08/24 10:00 09/08/24 21:28 200 MG Atorvastatin Calcium 20 mg HS PO 09/08/24 22:00 09/08/24 21:28 20 MG Midodrine 10 mg TID@0600,1200,1800 PO 09/08/24 12:00 09/09/24 05:20 10 MG Ondansetron HCl 4 mg Q4HPRN PRN IV 09/08/24 14:30 laboratory and microbiology Laboratory Tests 09/09/24 05:27 09/07/24 05:22 Test 09/09/24 05:27 Range/Units Serum Glucose 99 74-106 mg/dL Assessment/Plan Assessment Paroxysmal atrial fibrillation/flutter with RVR, new onset Acute hypoxic respiratory failure on home home oxygen Abnormal HS troponin, likely secondary to above Preserved LVEF of 55% per Echocardiogram Metabolic encephalopathy Hypertension, history of COPD, history of Seizure disorder Hyperlipidemia Plan/Recommendation Full anticoagulation for CVA prophylaxis is advised Proceed with Therapeutic Lovenox as for now Plan to transition to DOAC upon discharge Amiodarone to 200mg qhs bid for now Midodrine for blood pressure support Supplemental oxygen as warranted Atorvastatin 20mg daily Follow up Neurology recommendations Seizure precautions advised Proceed with close rate and rhythm surveillance Proceed with close hemodynamic surveillance Proceed with optimized blood pressure control Transfuse to sustain HGB level above 7.0 Sustain Magnesium level greater than 2.0 Sustain Potassium level greater than 4.0 Follow up renal function and electrolytes Management in telemetry Follow up [employer] operations consultant recommendations Will proceed to follow from a cardiac perspective Further recommendations per clinical progression All available diagnostic labs, EKG's, and images were personally reviewed Patient's status, findings, and plan of care was reviewed and discussed with supervising physician Dr. Niño, who is in agreement with current plan of care. Plan of care discussed with and agreed upon by patient / primary RN Prognosis: Guarded Thank you for allowing me to participate in the care of this patient. Further recommendations based on patients clinical course and progression, primary attending, and other consultants. Will continue to follow with primary attending. If you have any questions or concerns, please do not hesitate to contact me. A total of 75 minutes was spent reviewing the patient record, examining the patient, making a diagnostic and therapeutic plan, discussing this plan with medical personnel, following up on diagnostic studies and following the patient for clinical stability excluding any and all procedures. At least 50% of this time was spent in direct, [id number] contact. Dietary Evaluation Review Comments: Improve and monitor PO intake to meet 75% of her needs Expected Outcomes/Goals: improved lab values Plan discussed with: Patient (Patient and Primary RN ) FREDI DIAZ Sep 09, 2024 07:52
[2024-09-09 07:59] LABS: BUN/Creatinine Ratio 16.9 (10.0-20.0); Blood Urea Nitrogen 11 mg/dL (9-23)
--- NOTE | 2024-09-09 10:58 | DVHPN2 ---
Progress Note - Dictate Date Seen: Sep 09, 2024 Medical Necessity Reason Pt with a Central, PICC or Fol: Yes The following are medically ne: Kimbrough Catheter Reason for kimbrough catheter: Strict I&O Subjective Ms. Ivory is a 79 years old female with a history of hypertension, asthma, the patient was brought to the [facility] on 09/02/2024 with a chief company of altered mental status, have seen and examined the patient, I have talked to her nurse and sitter, she is awake she was oriented to person, place She does not remember me at all Socially appropriate, she follow commands Urinalysis, 09/02/2024: Unremarkable BUN/CR, 09/02/2024: WBC: 1, urine leukocyte esterase: Negative WBC/HB/PLT/MCV, 09/02/2024: 12.2/13.4/288/97.5 BMP, 09/02/2024: Unremarkable CMP, 09/03/2024: Unremarkable Glucose, 09/02/2024: 137 HGB A1c, 09/03/2024: For Lactic acid, 09/02/2024: 2.3/1.7 Vitamin B12, 09/03/2024:398 Lfolic acid, 09/03/2024: 35.84 TSH, 09/03/2024: 0.89 EEG, 09/04/24: Epileptiform discharge from the right hemisphere Chest x-ray, 09/02/2024: Pulmonary vascular congestion CT head, 09/02/2024: No evidence of acute intracranial abnormality vital signs Vital Sign Date Time Temp Pulse Resp B/P (MAP) Pulse Ox O2 Delivery O2 Flow Rate FiO2 09/09/24 08:27 98.0 77 14 88/51 (63) 96 98.0 09/09/24 08:00 Nasal Cannula* 2 28 Total Intake and Output 09/08/24 09/08/24 09/09/24 15:00 23:00 07:00 Intake Total 1050 ml 100 ml Output Total 1300 ml 700 ml Balance -250 ml -600 ml medications Current Medications Medications Dose Ordered Sig/Jaime Route Start Time Stop Time Status Last Admin Dose Admin Acetaminophen/ Hydrocodone Bitart 1 tab Q4HP PRN PO 09/02/24 18:00 09/05/24 04:27 1 TAB Acetaminophen 650 mg Q6HP PRN PO 09/02/24 18:00 Nitroglycerin 0.4 mg Q5MINP PRN SL 09/02/24 18:00 Morphine Sulfate 2 mg Q30M PRN IV 09/02/24 18:00 Lorazepam 1 mg Q5MINP PRN IV 09/02/24 21:00 Lorazepam 1 mg ONCE PRN IV 09/02/24 21:00 Pantoprazole Sodium 40 mg DAILY IV 09/03/24 16:30 09/09/24 10:15 40 MG Buspirone HCl 7.5 mg Q12HR PO 09/03/24 22:00 09/09/24 10:15 7.5 MG Ipratropium [place] 0.5 mg Q6HR NEB 09/04/24 00:00 09/09/24 06:02 0.5 MG Oxybutynin Chloride 5 mg BID PO 09/03/24 22:00 09/09/24 10:15 5 MG Levetiracetam 1,250 mg BID@0600,1800 PO 09/05/24 06:00 09/09/24 05:19 1,250 MG Enoxaparin Sodium 60 mg Q12HR SC 09/05/24 10:00 09/09/24 10:16 60 MG Linezolid 300 ml @ 150 mls/hr Q12HR IV 09/07/24 12:00 09/09/24 10:14 150 MLS/HR Amiodarone HCl 200 mg BID PO 09/08/24 10:00 09/08/24 21:28 200 MG Atorvastatin Calcium 20 mg HS PO 09/08/24 22:00 09/08/24 21:28 20 MG Midodrine 10 mg TID@0600,1200,1800 PO 09/08/24 12:00 09/09/24 05:20 10 MG Ondansetron HCl 4 mg Q4HPRN PRN IV 09/08/24 14:30 objective General: the patient is well developed and nourished. No acute distress. MENTAL STATUS: Subjective SPEECH, LANGUAGE, HIGHER CORTICAL FUNCTION: No aphasia or dysarthria CRANIAL NERVES: Pupils are equal, round and reactive. EOMs full and conjugate. No nystagmus. Facial sensation intact in all three divisions bilaterally. Mandibular strength intact. Facial muscles symmetrical and strength intact. SENSATION: Okay to light touch and pinprick MOTOR: Normal tone in the upper and lower extremity. Normal muscle bulk. No fasciculations. No abnormal movements or posturing. Move the arms and legs with no problem REFLEXES: Deep tendon reflexes normal and symmetrical. No pathological reflexes. CEREBELLAR/COORDINATION: Deferred GAIT/STATION: deferred. laboratory and microbiology Laboratory Tests 09/09/24 05:27 09/07/24 05:22 Test 09/09/24 05:27 Range/Units Serum Glucose 99 74-106 mg/dL Problem List Altered mental status, improving Metabolic encephalopathy Status epileptics Subclinical seizure Lactic acidosis, resolved I suspect the patient may have returned to her baseline mental status Assessment/Plan Monitoring Supportive treatment Telemetry UDS EEG MR brain scan (stimulator is not MRI compatible) Keppra 1250 mg b.i.d. Ativan for seizure breakthrough Up to chair Physical therapy More recommendation per clinical course This medical document was created using an electronic medical record system with [employer] dictation system. Although this document has been carefully reviewed, there may still be some phonetic and typographical errors. These areas are purely typographical due to imperfections of the software programs, and do not reflect any compromise in the patient's medical care. Prognosis poor Dietary Evaluation Review Comments: Improve and monitor PO intake to meet 75% of her needs Expected Outcomes/Goals: improved lab values Plan discussed with: Other TYREL SCOTT MD Sep 09, 2024 10:58
--- NOTE | 2024-09-09 12:27 | DVHPN2 ---
Progress Note - Dictate Date Seen: Sep 09, 2024 Medical Necessity Reason Pt with a Central, PICC or Fol: Yes The following are medically ne: Kimbrough Catheter Reason for kimbrough catheter: Strict I&O vital signs Vital Sign Date Time Temp Pulse Resp B/P (MAP) Pulse Ox O2 Delivery O2 Flow Rate FiO2 09/09/24 11:25 70 16 100 09/09/24 11:19 Nasal Cannula* 2 28 09/09/24 08:27 98.0 88/51 (63) 98.0 Total Intake and Output 09/08/24 09/08/24 09/09/24 15:00 23:00 07:00 Intake Total 1050 ml 100 ml Output Total 1300 ml 700 ml Balance -250 ml -600 ml medications Current Medications Medications Dose Ordered Sig/Jaime Route Start Time Stop Time Status Last Admin Dose Admin Acetaminophen/ Hydrocodone Bitart 1 tab Q4HP PRN PO 09/02/24 18:00 09/05/24 04:27 1 TAB Acetaminophen 650 mg Q6HP PRN PO 09/02/24 18:00 Nitroglycerin 0.4 mg Q5MINP PRN SL 09/02/24 18:00 Morphine Sulfate 2 mg Q30M PRN IV 09/02/24 18:00 Lorazepam 1 mg Q5MINP PRN IV 09/02/24 21:00 Lorazepam 1 mg ONCE PRN IV 09/02/24 21:00 Pantoprazole Sodium 40 mg DAILY IV 09/03/24 16:30 09/09/24 10:15 40 MG Buspirone HCl 7.5 mg Q12HR PO 09/03/24 22:00 09/09/24 10:15 7.5 MG Ipratropium [place] 0.5 mg Q6HR NEB 09/04/24 00:00 09/09/24 11:19 0.5 MG Oxybutynin Chloride 5 mg BID PO 09/03/24 22:00 09/09/24 10:15 5 MG Levetiracetam 1,250 mg BID@0600,1800 PO 09/05/24 06:00 09/09/24 05:19 1,250 MG Enoxaparin Sodium 60 mg Q12HR SC 09/05/24 10:00 09/09/24 10:16 60 MG Linezolid 300 ml @ 150 mls/hr Q12HR IV 09/07/24 12:00 09/09/24 10:14 150 MLS/HR Amiodarone HCl 200 mg BID PO 09/08/24 10:00 09/08/24 21:28 200 MG Atorvastatin Calcium 20 mg HS PO 09/08/24 22:00 09/08/24 21:28 20 MG Midodrine 10 mg TID@0600,1200,1800 PO 09/08/24 12:00 09/09/24 11:44 10 MG Ondansetron HCl 4 mg Q4HPRN PRN IV 09/08/24 14:30 objective General Appearance: alert, no distress HEENT: EOMI, PERRLA, normal external inspect of ears, no icterus, no nasal drainage Neck: no carotid bruit, no jugular venous distention (JVD), no lymphadenopathy Chest: normal thorax Respiratory: clear to auscultation, normal air movement Cardiovascular: regular rate and rhythm, no diastolic murmur, no jugular venous distention (JVD), no rub, no systolic murmur Abdominal: soft, no hepatomegaly, no mass, no splenomegaly, no tenderness Genitourinary: grossly normal external Musculoskeletal: no joint tenderness, no swelling Extremities: normal pulses, no calf tenderness, no clubbing, no cyanosis, no edema Skin: no bruising, no jaundice, no rash Neurological: alert, No focal deficit laboratory and microbiology Laboratory Tests 09/09/24 05:27 09/07/24 05:22 Test 09/09/24 05:27 Range/Units Serum Glucose 99 74-106 mg/dL Problem List 1. ALOC Plan: Monitor, neurology consult 2. Metabolic encephalopathy Plan: Monitor, CT brain, EEG, MRI of brain 3. Status epileptics Plan: Monitor, UA 4. Subclinical seizure Plan: Monitor, antiepileptics 5. Acute cystitis without hematuria Plan: Monitor, PPI,, DVT relaxes 6. Lactic acidosis most likely from seizure Plan: Monitor 7. A-fib with RVR Plan: Monitor, cardiology consult, amiodarone drip, monitor EKG Assessment/Plan Subjective: Patient is an A&O x1. Patient continues to have some memory deficits. Objective: Patient was admitted on 09/02/2024 for ALC. Patient was found to have breakthrough seizures. Patient has an abnormal EEG. Patient was seen by neurology. Antiepileptic medications were adjusted. Patient appears to have short-term memory deficits. MRI was negative for CVA. Patient also had AFib with RVR. Patient was seen by cardiology. Patient is experiencing hypotension. Midodrine was ordered yesterday. Medication adjustments with amiodarone were also made. Plan: Continue current treatment. Patient is still having hypotension. Monitor EKG and neuro status. Dietary Evaluation Review Comments: Improve and monitor PO intake to meet 75% of her needs Expected Outcomes/Goals: improved lab values Plan discussed with: Patient, Other LIBBY GLASER NP Sep 09, 2024 12:27
--- NOTE | 2024-09-09 23:10 | DVHPN2 ---
Progress Note - Dictate Date Seen: Sep 09, 2024 Medical Necessity Reason Pt with a Central, PICC or Fol: Yes The following are medically ne: Kimbrough Catheter Reason for kimbrough catheter: Strict I&O Subjective Patient seen and examined at bedside. Remains on supplemental oxygen Overnight events reviewed. vital signs Vital Sign Date Time Temp Pulse Resp B/P (MAP) Pulse Ox O2 Delivery O2 Flow Rate FiO2 09/09/24 20:02 62 18 100 09/09/24 19:56 Nasal Cannula 2.0 09/09/24 19:56 28 09/09/24 16:58 98.7 107/57 (74) 98.7 Total Intake and Output 09/08/24 09/08/24 09/09/24 15:00 23:00 07:00 Intake Total 1050 ml 100 ml Output Total 1300 ml 700 ml Balance -250 ml -600 ml medications Current Medications Medications Dose Ordered Sig/Jaime Route Start Time Stop Time Status Last Admin Dose Admin Acetaminophen/ Hydrocodone Bitart 1 tab Q4HP PRN PO 09/02/24 18:00 09/05/24 04:27 1 TAB Acetaminophen 650 mg Q6HP PRN PO 09/02/24 18:00 Nitroglycerin 0.4 mg Q5MINP PRN SL 09/02/24 18:00 Morphine Sulfate 2 mg Q30M PRN IV 09/02/24 18:00 Lorazepam 1 mg Q5MINP PRN IV 09/02/24 21:00 Lorazepam 1 mg ONCE PRN IV 09/02/24 21:00 Pantoprazole Sodium 40 mg DAILY IV 09/03/24 16:30 09/09/24 10:15 40 MG Buspirone HCl 7.5 mg Q12HR PO 09/03/24 22:00 09/09/24 21:39 7.5 MG Ipratropium [place] 0.5 mg Q6HR NEB 09/04/24 00:00 09/09/24 19:56 0.5 MG Oxybutynin Chloride 5 mg BID PO 09/03/24 22:00 09/09/24 21:38 5 MG Levetiracetam 1,250 mg BID@0600,1800 PO 09/05/24 06:00 09/09/24 17:04 1,250 MG Enoxaparin Sodium 60 mg Q12HR SC 09/05/24 10:00 09/09/24 21:40 60 MG Linezolid 300 ml @ 150 mls/hr Q12HR IV 09/07/24 12:00 09/09/24 21:39 150 MLS/HR Amiodarone HCl 200 mg BID PO 09/08/24 10:00 09/08/24 21:28 200 MG Atorvastatin Calcium 20 mg HS PO 09/08/24 22:00 09/09/24 21:38 20 MG Midodrine 10 mg TID@0600,1200,1800 PO 09/08/24 12:00 09/09/24 17:04 10 MG Ondansetron HCl 4 mg Q4HPRN PRN IV 09/08/24 14:30 objective Gen.: Patient lying in bed in no apparent distress. On supplemental oxygen. Head: Normocephalic, atraumatic. Eyes: EOMI/PERRLA. Ears: Normal hearing. Normal anatomy. Neck/trachea: Trachea midline, supple. Nose: Normal external anatomy. Mouth: Moist mucous membranes. Chest: Decreased air entry bilaterally. No wheezing or rhonchi. Cardiovascular: Positive S1, positive S2. Regular rate and rhythm. Abdomen: Positive bowel sounds in all 4 quadrants. Soft, non-tender, non- distended. : Deferred. Rectal: Deferred. Skin: Warm, dry. Intact. Extremities: 2+ radial pulses bilaterally. No lower extremity edema. Neuro: Awake, alert, oriented x1. No gross motor or sensory deficits. Cranial nerves II through XII intact. Gait not assessed. laboratory and microbiology Laboratory Tests 09/09/24 05:27 09/07/24 05:22 Test 09/09/24 05:27 Range/Units Serum Glucose 99 74-106 mg/dL Assessment/Plan Impression: Acute hypoxic respiratory failure Dependence on supplemental oxygen Chronic obstructive pulmonary disease, stable Acute metabolic encephalopathy Seizure disorder Events: Remains on supplemental oxygen, 2 LPM NC Taper O2 as tolerated Patient remains seizure-free. Improved mentation 1:1 sitter for safety. Head of bed elevation Aspiration precautions Continue on antiepileptic - Keppra Seizure precautions Neurology recs appreciated. Monitor blood pressure. On midodrine TID to keep BP at goal. Elevated troponin Follow up Echo results. Continue bronchodilators PRN Continue antibiotics Improved swallowing Physical therapy. DVT prophylaxis Patient w/ right knee swelling Obtained right knee x-ray, demonstrates no evidence of acute fracture or dislocation; advanced right knee osteoarthritis Uric acid normal. Disposition per hospitalist. Labs and imaging reviewed. Rest of plan as noted below. Plan: Supplemental oxygen Titrate to keep O2 sats above 92%. Continue bronchodilators PRN Continue antibiotics Incentive spirometry Neurology recs appreciated Seizure disorder- Follow up EEG. Antiepileptic Monitor renal function. Monitor electrolytes. Supplement as necessary. Monitor ins and outs. DVT prophylaxis. Prognosis: Poor given patient's multiple co-morbidities. Rest of plan per hospitalist and other consultants. Thank you, ALEXA Grant, for allowing me to participate in this patient's care. Further recommendations will depend on the patient's clinical course. Please do not hesitate to contact me if you have any questions or concerns. This medical document was created using an electronic medical record system with [employer] dictation system. Although these documentations are being carefully reviewed, there may still be some phonetic and typographical changes. The errors are purely typographical, due to imperfection on the software program, and do not reflect any compromise in the patient's medical care. Dietary Evaluation Review Comments: Improve and monitor PO intake to meet 75% of her needs Expected Outcomes/Goals: improved lab values Plan discussed with: Patient, Other (BRIAN Armando) BRUNO MCGRATH MD Sep 09, 2024 23:10
[2024-09-10] VITALS (16 sets, daily range): BP systolic 92–138; BP diastolic 51–73; PULSE 62–78; RESP 16–18; TEMP 97.9–98.6; O2SAT 91–100
--- NOTE | 2024-09-10 06:32 | DVHPN2 ---
Progress Note - Dictate Date Seen: Sep 10, 2024 Medical Necessity Reason Pt with a Central, PICC or Fol: Yes The following are medically ne: Kimbrough Catheter Reason for kimbrough catheter: Strict I&O Subjective Seen and examined at the bedside within telemetry. Maintaining sinus rhythm upon telemetry review. Hemodynamics remain stable. Chart reviewed. vital signs Vital Sign Date Time Temp Pulse Resp B/P (MAP) Pulse Ox O2 Delivery O2 Flow Rate FiO2 09/10/24 05:00 98.2 66 18 95/56 (69) 100 98.2 09/10/24 00:13 Nasal Cannula 2.0 09/10/24 00:13 28 Total Intake and Output 09/09/24 09/09/24 09/10/24 15:00 23:00 07:00 Intake Total 879 ml Output Total 550 ml 825 ml Balance -550 ml 54 ml medications Current Medications Medications Dose Ordered Sig/Jaime Route Start Time Stop Time Status Last Admin Dose Admin Acetaminophen/ Hydrocodone Bitart 1 tab Q4HP PRN PO 09/02/24 18:00 09/05/24 04:27 1 TAB Acetaminophen 650 mg Q6HP PRN PO 09/02/24 18:00 Nitroglycerin 0.4 mg Q5MINP PRN SL 09/02/24 18:00 Morphine Sulfate 2 mg Q30M PRN IV 09/02/24 18:00 Lorazepam 1 mg Q5MINP PRN IV 09/02/24 21:00 Lorazepam 1 mg ONCE PRN IV 09/02/24 21:00 Pantoprazole Sodium 40 mg DAILY IV 09/03/24 16:30 09/09/24 10:15 40 MG Buspirone HCl 7.5 mg Q12HR PO 09/03/24 22:00 09/09/24 21:39 7.5 MG Ipratropium [place] 0.5 mg Q6HR NEB 09/04/24 00:00 09/10/24 00:13 0.5 MG Oxybutynin Chloride 5 mg BID PO 09/03/24 22:00 09/09/24 21:38 5 MG Levetiracetam 1,250 mg BID@0600,1800 PO 09/05/24 06:00 09/09/24 17:04 1,250 MG Enoxaparin Sodium 60 mg Q12HR SC 09/05/24 10:00 09/09/24 21:40 60 MG Linezolid 300 ml @ 150 mls/hr Q12HR IV 09/07/24 12:00 09/09/24 21:39 150 MLS/HR Amiodarone HCl 200 mg BID PO 09/08/24 10:00 09/08/24 21:28 200 MG Atorvastatin Calcium 20 mg HS PO 09/08/24 22:00 09/09/24 21:38 20 MG Midodrine 10 mg TID@0600,1200,1800 PO 09/08/24 12:00 09/09/24 17:04 10 MG Ondansetron HCl 4 mg Q4HPRN PRN IV 09/08/24 14:30 laboratory and microbiology Laboratory Tests 09/09/24 05:27 09/07/24 05:22 Test 09/09/24 05:27 Range/Units Serum Glucose 99 74-106 mg/dL Assessment/Plan Assessment Paroxysmal atrial fibrillation/flutter with RVR, new onset Acute hypoxic respiratory failure on home home oxygen Abnormal HS troponin, likely secondary to above Preserved LVEF of 55% per Echocardiogram Metabolic encephalopathy Hypertension, history of COPD, history of Seizure disorder Hyperlipidemia Plan/Recommendation Full anticoagulation for CVA prophylaxis is advised Transition to DOAC (Eliquis 5mg twice daily) Titrate Amiodarone to 200mg qhs for now Midodrine for blood pressure support Supplemental oxygen as warranted Atorvastatin 20mg daily Follow up Neurology recommendations Seizure precautions advised Proceed with close rate and rhythm surveillance Proceed with close hemodynamic surveillance Proceed with optimized blood pressure control Transfuse to sustain HGB level above 7.0 Sustain Magnesium level greater than 2.0 Sustain Potassium level greater than 4.0 Follow up renal function and electrolytes Management in telemetry Follow up healthcare market consultant recommendations Will proceed to follow from a cardiac perspective Further recommendations per clinical progression All available diagnostic labs, EKG's, and images were personally reviewed Patient's status, findings, and plan of care was reviewed and discussed with supervising physician Dr. Niño, who is in agreement with current plan of care. Plan of care discussed with and agreed upon by patient / primary RN Prognosis: Guarded Thank you for allowing me to participate in the care of this patient. Further recommendations based on patients clinical course and progression, primary attending, and other consultants. Will continue to follow with primary attending. If you have any questions or concerns, please do not hesitate to contact me. A total of 75 minutes was spent reviewing the patient record, examining the patient, making a diagnostic and therapeutic plan, discussing this plan with medical personnel, following up on diagnostic studies and following the patient for clinical stability excluding any and all procedures. At least 50% of this time was spent in direct, [id number] contact. Dietary Evaluation Review Comments: Improve and monitor PO intake to meet 75% of her needs Expected Outcomes/Goals: improved lab values Plan discussed with: Patient (Patient and Primary RN ) FREDI DIAZ Sep 10, 2024 06:32
--- NOTE | 2024-09-10 10:55 | DVHPN2 ---
Progress Note - Dictate Date Seen: Sep 10, 2024 Medical Necessity Reason Pt with a Central, PICC or Fol: Yes The following are medically ne: Kimbrough Catheter Reason for kimbrough catheter: Strict I&O vital signs Vital Sign Date Time Temp Pulse Resp B/P (MAP) Pulse Ox O2 Delivery O2 Flow Rate FiO2 09/10/24 08:00 67 16 97 Nasal Cannula* 2 28 09/10/24 05:00 98.2 95/56 (69) 98.2 Total Intake and Output 09/09/24 09/09/24 09/10/24 15:00 23:00 07:00 Intake Total 879 ml Output Total 550 ml 825 ml Balance -550 ml 54 ml medications Current Medications Medications Dose Ordered Sig/Jaime Route Start Time Stop Time Status Last Admin Dose Admin Acetaminophen/ Hydrocodone Bitart 1 tab Q4HP PRN PO 09/02/24 18:00 09/05/24 04:27 1 TAB Acetaminophen 650 mg Q6HP PRN PO 09/02/24 18:00 Nitroglycerin 0.4 mg Q5MINP PRN SL 09/02/24 18:00 Morphine Sulfate 2 mg Q30M PRN IV 09/02/24 18:00 Lorazepam 1 mg Q5MINP PRN IV 09/02/24 21:00 Lorazepam 1 mg ONCE PRN IV 09/02/24 21:00 Pantoprazole Sodium 40 mg DAILY IV 09/03/24 16:30 09/10/24 09:49 40 MG Buspirone HCl 7.5 mg Q12HR PO 09/03/24 22:00 09/10/24 09:50 7.5 MG Ipratropium [place] 0.5 mg Q6HR NEB 09/04/24 00:00 09/10/24 07:18 0.5 MG Oxybutynin Chloride 5 mg BID PO 09/03/24 22:00 09/10/24 09:51 5 MG Levetiracetam 1,250 mg BID@0600,1800 PO 09/05/24 06:00 09/10/24 06:32 1,250 MG Enoxaparin Sodium 60 mg Q12HR SC 09/05/24 10:00 09/10/24 09:52 60 MG Linezolid 300 ml @ 150 mls/hr Q12HR IV 09/07/24 12:00 09/10/24 09:49 150 MLS/HR Amiodarone HCl 200 mg BID PO 09/08/24 10:00 09/10/24 09:51 200 MG Atorvastatin Calcium 20 mg HS PO 09/08/24 22:00 09/09/24 21:38 20 MG Midodrine 10 mg TID@0600,1200,1800 PO 09/08/24 12:00 09/10/24 06:32 10 MG Ondansetron HCl 4 mg Q4HPRN PRN IV 09/08/24 14:30 objective General Appearance: alert, no distress HEENT: EOMI, PERRLA, normal external inspect of ears, no icterus, no nasal drainage Neck: no carotid bruit, no jugular venous distention (JVD), no lymphadenopathy Chest: normal thorax Respiratory: clear to auscultation, normal air movement Cardiovascular: regular rate and rhythm, no diastolic murmur, no jugular venous distention (JVD), no rub, no systolic murmur Abdominal: soft, no hepatomegaly, no mass, no splenomegaly, no tenderness Genitourinary: grossly normal external Musculoskeletal: no joint tenderness, no swelling Extremities: normal pulses, no calf tenderness, no clubbing, no cyanosis, no edema Skin: no bruising, no jaundice, no rash Neurological: alert, No focal deficit laboratory and microbiology Laboratory Tests 09/09/24 05:27 09/07/24 05:22 Test 09/09/24 05:27 Range/Units Serum Glucose 99 74-106 mg/dL Problem List 1. ALOC Plan: Monitor, neurology consult 2. Metabolic encephalopathy Plan: Monitor, CT brain, EEG, MRI of brain 3. Status epileptics Plan: Monitor, UA 4. Subclinical seizure Plan: Monitor, antiepileptics 5. Acute cystitis without hematuria Plan: Monitor, PPI,, DVT relaxes 6. Lactic acidosis most likely from seizure Plan: Monitor 7. A-fib with RVR Plan: Monitor, cardiology consult, amiodarone drip, monitor EKG Assessment/Plan Subjective: Patient is much more awake and alert. Objective: I spoke with patient's niece Anh in regards to plan of care. Patient is a resident of [facility]. Patient will not be able to return to assisted living facility at this time due to her short term memory. I did discuss plan of care with neurology. Patient has recovered from breakthrough seizures and I also spoke with cardiology. Patient has now been cleared for discharge. Patient's heart rate with atrial fibrillation is controlled. She is now in a sinus rhythm. Plan: Consult social services technician. Patient's niece states patient will need home health and DC planning. Possible discharge for tomorrow. Dietary Evaluation Review Comments: Improve and monitor PO intake to meet 75% of her needs Expected Outcomes/Goals: improved lab values Plan discussed with: Patient, Other LIBBY GLASER NP Sep 10, 2024 10:55
--- NOTE | 2024-09-10 11:17 | DVHPN2 ---
Progress Note - Dictate Date Seen: Sep 10, 2024 Medical Necessity Reason Pt with a Central, PICC or Fol: Yes The following are medically ne: Kimbrough Catheter Reason for kimbrough catheter: Strict I&O Subjective Ms. Ivory is a 79 years old female with a history of hypertension, asthma, the patient was brought to the [facility] on 09/02/2024 with a chief company of altered mental status, I have seen and examined the patient, I have talked to her nurse and sitter, she is awake she was oriented to person, place Very poor memory She does not remember me at all Socially appropriate, she follows commands Urinalysis, 09/02/2024: Unremarkable BUN/CR, 09/02/2024: WBC: 1, urine leukocyte esterase: Negative WBC/HB/PLT/MCV, 09/02/2024: 12.2/13.4/288/97.5 BMP, 09/02/2024: Unremarkable CMP, 09/03/2024: Unremarkable Glucose, 09/02/2024: 137 HGB A1c, 09/03/2024: For Lactic acid, 09/02/2024: 2.3/1.7 Vitamin B12, 09/03/2024:398 Lfolic acid, 09/03/2024: 35.84 TSH, 09/03/2024: 0.89 EEG, 09/04/24: Epileptiform discharge from the right hemisphere Chest x-ray, 09/02/2024: Pulmonary vascular congestion CT head, 09/02/2024: No evidence of acute intracranial abnormality vital signs Vital Sign Date Time Temp Pulse Resp B/P (MAP) Pulse Ox O2 Delivery O2 Flow Rate FiO2 09/10/24 08:00 67 16 97 Nasal Cannula* 2 28 09/10/24 05:00 98.2 95/56 (69) 98.2 Total Intake and Output 09/09/24 09/09/24 09/10/24 15:00 23:00 07:00 Intake Total 879 ml Output Total 550 ml 825 ml Balance -550 ml 54 ml medications Current Medications Medications Dose Ordered Sig/Jaime Route Start Time Stop Time Status Last Admin Dose Admin Acetaminophen/ Hydrocodone Bitart 1 tab Q4HP PRN PO 09/02/24 18:00 09/05/24 04:27 1 TAB Acetaminophen 650 mg Q6HP PRN PO 09/02/24 18:00 Nitroglycerin 0.4 mg Q5MINP PRN SL 09/02/24 18:00 Morphine Sulfate 2 mg Q30M PRN IV 09/02/24 18:00 Lorazepam 1 mg Q5MINP PRN IV 09/02/24 21:00 Lorazepam 1 mg ONCE PRN IV 09/02/24 21:00 Pantoprazole Sodium 40 mg DAILY IV 09/03/24 16:30 09/10/24 09:49 40 MG Buspirone HCl 7.5 mg Q12HR PO 09/03/24 22:00 09/10/24 09:50 7.5 MG Ipratropium [place] 0.5 mg Q6HR NEB 09/04/24 00:00 09/10/24 07:18 0.5 MG Oxybutynin Chloride 5 mg BID PO 09/03/24 22:00 09/10/24 09:51 5 MG Levetiracetam 1,250 mg BID@0600,1800 PO 09/05/24 06:00 09/10/24 06:32 1,250 MG Enoxaparin Sodium 60 mg Q12HR SC 09/05/24 10:00 09/10/24 09:52 60 MG Linezolid 300 ml @ 150 mls/hr Q12HR IV 09/07/24 12:00 09/10/24 09:49 150 MLS/HR Amiodarone HCl 200 mg BID PO 09/08/24 10:00 09/10/24 09:51 200 MG Atorvastatin Calcium 20 mg HS PO 09/08/24 22:00 09/09/24 21:38 20 MG Midodrine 10 mg TID@0600,1200,1800 PO 09/08/24 12:00 09/10/24 06:32 10 MG Ondansetron HCl 4 mg Q4HPRN PRN IV 09/08/24 14:30 objective General: the patient is well developed and nourished. No acute distress. MENTAL STATUS: Subjective SPEECH, LANGUAGE, HIGHER CORTICAL FUNCTION: No aphasia or dysarthria CRANIAL NERVES: Pupils are equal, round and reactive. EOMs full and conjugate. No nystagmus. Facial sensation intact in all three divisions bilaterally. Mandibular strength intact. Facial muscles symmetrical and strength intact. SENSATION: Okay to light touch and pinprick MOTOR: Normal tone in the upper and lower extremity. Normal muscle bulk. No fasciculations. No abnormal movements or posturing. Move the arms and legs with no problem REFLEXES: Deep tendon reflexes normal and symmetrical. No pathological reflexes. CEREBELLAR/COORDINATION: Deferred GAIT/STATION: deferred. laboratory and microbiology Laboratory Tests 09/09/24 05:27 09/07/24 05:22 Test 09/09/24 05:27 Range/Units Serum Glucose 99 74-106 mg/dL Problem List Altered mental status, improving Metabolic encephalopathy Status epileptics Subclinical seizure Lactic acidosis, resolved I suspect the patient may have returned to her baseline mental status Assessment/Plan Monitoring Supportive treatment Telemetry UDS EEG MR brain scan (stimulator is not MRI compatible) Keppra 1250 mg b.i.d. Ativan for seizure breakthrough Up to chair Physical therapy More recommendation per clinical course This medical document was created using an electronic medical record system with [employer] computerized dictation system. Although this document has been carefully reviewed, there may still be some phonetic and typographical errors. These areas are purely typographical due to imperfections of the software programs, and do not reflect any compromise in the patient's medical care. Prognosis poor Dietary Evaluation Review Comments: Improve and monitor PO intake to meet 75% of her needs Expected Outcomes/Goals: improved lab values Plan discussed with: Patient, Son, Other TYREL SCOTT MD Sep 10, 2024 11:17
[2024-09-10] MEDS: ACETAMINOPHEN 325 MG TAB PO PRN (17:49)
[2024-09-10] MEDS: APIXABAN 5 MG TAB PO SCH (22:13)
--- NOTE | 2024-09-10 23:23 | DVHPN2 ---
Progress Note - Dictate Date Seen: Sep 10, 2024 Medical Necessity Reason Pt with a Central, PICC or Fol: Yes The following are medically ne: Kimbrough Catheter Reason for kimbrough catheter: Strict I&O Subjective Patient seen and examined at bedside. Remains on supplemental oxygen Overnight events reviewed. vital signs Vital Sign Date Time Temp Pulse Resp B/P (MAP) Pulse Ox O2 Delivery O2 Flow Rate FiO2 09/10/24 18:49 72 16 99 09/10/24 18:43 Room Air 09/10/24 18:43 0 21 09/10/24 17:00 97.9 99/52 (68) 97.9 Total Intake and Output 09/09/24 09/09/24 09/10/24 15:00 23:00 07:00 Intake Total 879 ml Output Total 550 ml 825 ml Balance -550 ml 54 ml medications Current Medications Medications Dose Ordered Sig/Jaime Route Start Time Stop Time Status Last Admin Dose Admin Acetaminophen/ Hydrocodone Bitart 1 tab Q4HP PRN PO 09/02/24 18:00 09/05/24 04:27 1 TAB Acetaminophen 650 mg Q6HP PRN PO 09/02/24 18:00 09/10/24 17:49 650 MG Nitroglycerin 0.4 mg Q5MINP PRN SL 09/02/24 18:00 Morphine Sulfate 2 mg Q30M PRN IV 09/02/24 18:00 Lorazepam 1 mg Q5MINP PRN IV 09/02/24 21:00 Lorazepam 1 mg ONCE PRN IV 09/02/24 21:00 Pantoprazole Sodium 40 mg DAILY IV 09/03/24 16:30 09/10/24 09:49 40 MG Ipratropium [place] 0.5 mg Q6HR NEB 09/04/24 00:00 09/10/24 18:43 0.5 MG Oxybutynin Chloride 5 mg BID PO 09/03/24 22:00 09/10/24 22:13 5 MG Levetiracetam 1,250 mg BID@0600,1800 PO 09/05/24 06:00 09/10/24 17:41 1,250 MG Linezolid 300 ml @ 150 mls/hr Q12HR IV 09/07/24 12:00 09/10/24 22:16 150 MLS/HR Atorvastatin Calcium 20 mg HS PO 09/08/24 22:00 09/10/24 22:13 20 MG Midodrine 10 mg TID@0600,1200,1800 PO 09/08/24 12:00 09/10/24 17:41 10 MG Ondansetron HCl 4 mg Q4HPRN PRN IV 09/08/24 14:30 Amiodarone HCl 200 mg HS PO 09/11/24 22:00 Apixaban 5 mg BID PO 09/10/24 22:00 09/10/24 22:13 5 MG objective Gen.: Patient lying in bed in no apparent distress. On supplemental oxygen. Head: Normocephalic, atraumatic. Eyes: EOMI/PERRLA. Ears: Normal hearing. Normal anatomy. Neck/trachea: Trachea midline, supple. Nose: Normal external anatomy. Mouth: Moist mucous membranes. Chest: Decreased air entry bilaterally. No wheezing or rhonchi. Cardiovascular: Positive S1, positive S2. Regular rate and rhythm. Abdomen: Positive bowel sounds in all 4 quadrants. Soft, non-tender, non- distended. : Deferred. Rectal: Deferred. Skin: Warm, dry. Intact. Extremities: 2+ radial pulses bilaterally. No lower extremity edema. Neuro: Awake, alert, oriented x1. No gross motor or sensory deficits. Cranial nerves II through XII intact. Gait not assessed. laboratory and microbiology Laboratory Tests 09/09/24 05:27 09/07/24 05:22 Test 09/09/24 05:27 Range/Units Serum Glucose 99 74-106 mg/dL Assessment/Plan Impression: Acute hypoxic respiratory failure Dependence on supplemental oxygen Chronic obstructive pulmonary disease, stable Acute metabolic encephalopathy Seizure disorder Events: Remains on supplemental oxygen, 2 LPM NC Taper O2 as tolerated Patient remains seizure-free. Improved mentation 1:1 sitter at bedside for safety. Head of bed elevation Aspiration precautions Continue on antiepileptic - Keppra Seizure precautions Neurology recs appreciated. Monitor blood pressure. On midodrine TID to keep BP at goal. Elevated troponin Follow up Echo results. Continue bronchodilators PRN Continue antibiotics Improved swallowing Physical therapy. DVT prophylaxis Disposition per hospitalist. Home health Labs and imaging reviewed. Rest of plan as noted below. Plan: Supplemental oxygen Titrate to keep O2 sats above 92%. Continue bronchodilators PRN Continue antibiotics Incentive spirometry Neurology recs appreciated Seizure disorder- Follow up EEG. Antiepileptic Monitor renal function. Monitor electrolytes. Supplement as necessary. Monitor ins and outs. DVT prophylaxis. Prognosis: Poor given patient's multiple co-morbidities. Rest of plan per hospitalist and other consultants. Thank you, ALEXA Grant, for allowing me to participate in this patient's care. Further recommendations will depend on the patient's clinical course. Please do not hesitate to contact me if you have any questions or concerns. This medical document was created using an electronic medical record system with [employer] dictation system. Although these documentations are being carefully reviewed, there may still be some phonetic and typographical changes. The errors are purely typographical, due to imperfection on the software program, and do not reflect any compromise in the patient's medical care. Dietary Evaluation Review Comments: Improve and monitor PO intake to meet 75% of her needs Expected Outcomes/Goals: improved lab values Plan discussed with: Patient, Other (BRIAN Collins) BRUNO MCGRATH MD Sep 10, 2024 23:23
[2024-09-11] VITALS (16 sets, daily range): BP systolic 94–109; BP diastolic 51–60; PULSE 59–76; RESP 14–20; TEMP 97.9–98.5; O2SAT 94–100
--- NOTE | 2024-09-11 06:06 | DVHPN2 ---
Progress Note - Dictate Date Seen: Sep 11, 2024 Medical Necessity Reason Pt with a Central, PICC or Fol: Yes The following are medically ne: Kimbrough Catheter Reason for kimbrough catheter: Strict I&O Subjective Seen and examined at the bedside within telemetry. Maintaining sinus rhythm upon telemetry review. Hemodynamics remain stable. Chart reviewed. vital signs Vital Sign Date Time Temp Pulse Resp B/P (MAP) Pulse Ox O2 Delivery O2 Flow Rate FiO2 09/11/24 05:00 98.2 76 17 97/52 (67) 96 98.2 09/10/24 20:00 Nasal Cannula* 2 28 Total Intake and Output 09/10/24 09/10/24 09/11/24 15:00 23:00 07:00 Intake Total 300 ml 1275 ml 1200 ml Output Total 1800 ml 1450 ml Balance 300 ml -525 ml -250 ml medications Current Medications Medications Dose Ordered Sig/Jaime Route Start Time Stop Time Status Last Admin Dose Admin Acetaminophen/ Hydrocodone Bitart 1 tab Q4HP PRN PO 09/02/24 18:00 09/05/24 04:27 1 TAB Acetaminophen 650 mg Q6HP PRN PO 09/02/24 18:00 09/10/24 17:49 650 MG Nitroglycerin 0.4 mg Q5MINP PRN SL 09/02/24 18:00 Morphine Sulfate 2 mg Q30M PRN IV 09/02/24 18:00 Lorazepam 1 mg Q5MINP PRN IV 09/02/24 21:00 Lorazepam 1 mg ONCE PRN IV 09/02/24 21:00 Pantoprazole Sodium 40 mg DAILY IV 09/03/24 16:30 09/10/24 09:49 40 MG Ipratropium [place] 0.5 mg Q6HR NEB 09/04/24 00:00 09/10/24 18:43 0.5 MG Oxybutynin Chloride 5 mg BID PO 09/03/24 22:00 09/10/24 22:13 5 MG Levetiracetam 1,250 mg BID@0600,1800 PO 09/05/24 06:00 09/11/24 06:02 1,250 MG Linezolid 300 ml @ 150 mls/hr Q12HR IV 09/07/24 12:00 09/10/24 22:16 150 MLS/HR Atorvastatin Calcium 20 mg HS PO 09/08/24 22:00 09/10/24 22:13 20 MG Midodrine 10 mg TID@0600,1200,1800 PO 09/08/24 12:00 09/11/24 06:02 10 MG Ondansetron HCl 4 mg Q4HPRN PRN IV 09/08/24 14:30 Amiodarone HCl 200 mg HS PO 09/11/24 22:00 Apixaban 5 mg BID PO 09/10/24 22:00 09/10/24 22:13 5 MG laboratory and microbiology Laboratory Tests 09/09/24 05:27 09/07/24 05:22 Test 09/09/24 05:27 Range/Units Serum Glucose 99 74-106 mg/dL Assessment/Plan Assessment Paroxysmal atrial fibrillation/flutter with RVR, new onset Acute hypoxic respiratory failure on home home oxygen Abnormal HS troponin, likely secondary to above Preserved LVEF of 55% per Echocardiogram Metabolic encephalopathy Hypertension, history of COPD, history of Seizure disorder Hyperlipidemia Plan/Recommendation Full anticoagulation for CVA prophylaxis is advised Transition to DOAC (Eliquis 5mg twice daily) Titrate Amiodarone to 200mg qhs for now Midodrine for blood pressure support Supplemental oxygen as warranted Atorvastatin 20mg daily Follow up Neurology recommendations Seizure precautions advised Proceed with close rate and rhythm surveillance Proceed with close hemodynamic surveillance Proceed with optimized blood pressure control Transfuse to sustain HGB level above 7.0 Sustain Magnesium level greater than 2.0 Sustain Potassium level greater than 4.0 Follow up renal function and electrolytes Cardiac-diaz, stable Management in telemetry Follow up networks computer consultant recommendations Will proceed to follow from a cardiac perspective Further recommendations per clinical progression All available diagnostic labs, EKG's, and images were personally reviewed Patient's status, findings, and plan of care was reviewed and discussed with supervising physician Dr. Niño, who is in agreement with current plan of care. Plan of care discussed with and agreed upon by patient / primary RN Prognosis: Guarded Thank you for allowing me to participate in the care of this patient. Further recommendations based on patients clinical course and progression, primary attending, and other consultants. Will continue to follow with primary attending. If you have any questions or concerns, please do not hesitate to contact me. A total of 75 minutes was spent reviewing the patient record, examining the patient, making a diagnostic and therapeutic plan, discussing this plan with medical personnel, following up on diagnostic studies and following the patient for clinical stability excluding any and all procedures. At least 50% of this time was spent in direct, [id number] contact. Dietary Evaluation Review Comments: Improve and monitor PO intake to meet 75% of her needs Expected Outcomes/Goals: improved lab values Plan discussed with: Patient (Patient and Primary RN ) FREDI DIAZ Sep 11, 2024 06:06
--- NOTE | 2024-09-11 09:00 | DVHPN2 ---
Progress Note - Dictate Date Seen: Sep 11, 2024 Medical Necessity Reason Pt with a Central, PICC or Fol: Yes The following are medically ne: Kimbrough Catheter Reason for kimbrough catheter: Strict I&O vital signs Vital Sign Date Time Temp Pulse Resp B/P (MAP) Pulse Ox O2 Delivery O2 Flow Rate FiO2 09/11/24 08:43 98.3 62 20 94/51 (65) 96 98.3 09/11/24 08:00 Nasal Cannula* 2 28 Total Intake and Output 09/10/24 09/10/24 09/11/24 15:00 23:00 07:00 Intake Total 300 ml 1275 ml 1200 ml Output Total 1800 ml 1450 ml Balance 300 ml -525 ml -250 ml medications Current Medications Medications Dose Ordered Sig/Jaime Route Start Time Stop Time Status Last Admin Dose Admin Acetaminophen/ Hydrocodone Bitart 1 tab Q4HP PRN PO 09/02/24 18:00 09/05/24 04:27 1 TAB Acetaminophen 650 mg Q6HP PRN PO 09/02/24 18:00 09/10/24 17:49 650 MG Nitroglycerin 0.4 mg Q5MINP PRN SL 09/02/24 18:00 Morphine Sulfate 2 mg Q30M PRN IV 09/02/24 18:00 Lorazepam 1 mg Q5MINP PRN IV 09/02/24 21:00 Lorazepam 1 mg ONCE PRN IV 09/02/24 21:00 Pantoprazole Sodium 40 mg DAILY IV 09/03/24 16:30 09/10/24 09:49 40 MG Ipratropium [place] 0.5 mg Q6HR NEB 09/04/24 00:00 09/11/24 06:26 0.5 MG Oxybutynin Chloride 5 mg BID PO 09/03/24 22:00 09/10/24 22:13 5 MG Levetiracetam 1,250 mg BID@0600,1800 PO 09/05/24 06:00 09/11/24 06:02 1,250 MG Linezolid 300 ml @ 150 mls/hr Q12HR IV 09/07/24 12:00 09/10/24 22:16 150 MLS/HR Atorvastatin Calcium 20 mg HS PO 09/08/24 22:00 09/10/24 22:13 20 MG Midodrine 10 mg TID@0600,1200,1800 PO 09/08/24 12:00 09/11/24 06:02 10 MG Ondansetron HCl 4 mg Q4HPRN PRN IV 09/08/24 14:30 Amiodarone HCl 200 mg HS PO 09/11/24 22:00 Apixaban 5 mg BID PO 09/10/24 22:00 09/10/24 22:13 5 MG objective General Appearance: alert, no distress HEENT: EOMI, PERRLA, normal external inspect of ears, no icterus, no nasal drainage Neck: no carotid bruit, no jugular venous distention (JVD), no lymphadenopathy Chest: normal thorax Respiratory: clear to auscultation, normal air movement Cardiovascular: regular rate and rhythm, no diastolic murmur, no jugular venous distention (JVD), no rub, no systolic murmur Abdominal: soft, no hepatomegaly, no mass, no splenomegaly, no tenderness Genitourinary: grossly normal external Musculoskeletal: no joint tenderness, no swelling Extremities: normal pulses, no calf tenderness, no clubbing, no cyanosis, no edema Skin: no bruising, no jaundice, no rash Neurological: alert, No focal deficit laboratory and microbiology Laboratory Tests 09/09/24 05:27 09/07/24 05:22 Test 09/09/24 05:27 Range/Units Serum Glucose 99 74-106 mg/dL Problem List 1. ALOC Plan: Monitor, neurology consult 2. Metabolic encephalopathy Plan: Monitor, CT brain, EEG, MRI of brain 3. Status epileptics Plan: Monitor, UA 4. Subclinical seizure Plan: Monitor, antiepileptics 5. Acute cystitis without hematuria Plan: Monitor, PPI,, DVT relaxes 6. Lactic acidosis most likely from seizure Plan: Monitor 7. A-fib with RVR Plan: Monitor, cardiology consult, amiodarone drip, monitor EKG Assessment/Plan Subjective Patient is awake and alert x 1. Objective Patient admitted for ALOC, status epilepticus, and breakthrough seizure. Patient's mentation improving however her memory remains poor. Patient had acute cystitis and A-fib RVR. guest services agent has been consulted to discuss discharge planning. Niece is requesting home health. Plan Continue current treatment. Home health vs correction facility for rehab. Continue to monitor neurostatus. Discharge planning. Dietary Evaluation Review Comments: Improve and monitor PO intake to meet 75% of her needs Expected Outcomes/Goals: improved lab values Plan discussed with: Patient, Other LIBBY GLAS[employer]IST Sep 11, 2024 09:00
[2024-09-11 11:23] LABS: Basophils # (auto) 0 10 ^3/uL (0-0.2); Basophils % (auto) 0.6 % (0.0-2.0); Eosinophils # (auto) 0.4 10 ^3/uL (0-0.8); Eosinophils % (auto) 5.2 % (0.0-7.0); Hematocrit 33.4 % (36.0-46.0); Hemoglobin 11.3 g/dL (12.2-16.2); Lymphocytes # (auto) 1.5 10 ^3/uL (0.4-5.4); Lymphocytes % (auto) 22.6 % (10.0-50.0); Mean Corpuscular Hemoglobin 32.8 pg (28.0-32.0); Mean Corpuscular Hgb Conc. 33.7 g/dL (32.0-36.0); Mean Corpuscular Volume 97.3 fL (80.0-100.0); Monocytes # (auto) 0.6 10 ^3/uL (0-1.3); Monocytes % (auto) 9.4 % (0.0-12.0); Neutrophils # (auto) 4.2 10 ^3/uL (1.6-8.6); Neutrophils % (auto) 62.2 % (37.0-80.0); Platelet Count (auto) 302 10^3/uL (140-450); Red Blood Cells 3.44 10^6/uL (4.0-5.20); Red Cell Distribution Width 12.9 % (11.8-14.3); White Blood Cell 6.8 10^3/uL (4.4-10.8)
[2024-09-11 11:35] LABS: Chloride 104 mmol/L (98-107); Potassium 3.9 mmol/L (3.5-5.1); Sodium 139 mmol/L (136-145)
[2024-09-11 11:36] LABS: Anion Gap 7 (5-15); Carbon Dioxide 28 mmol/L (20-31)
[2024-09-11 11:37] LABS: Calcium 9.3 mg/dL (8.7-10.4)
[2024-09-11 11:41] LABS: BUN/Creatinine Ratio 16.3 (10.0-20.0); Blood Urea Nitrogen 13 mg/dL (9-23)
[2024-09-11 11:42] LABS: Glucose 110 mg/dL (74-106)
--- NOTE | 2024-09-11 22:26 | DVHPN2 ---
Progress Note - Dictate Date Seen: Sep 11, 2024 Medical Necessity Reason Pt with a Central, PICC or Fol: Yes The following are medically ne: Kimbrough Catheter Reason for kimbrough catheter: Strict I&O Subjective Ms. Ivory is a 79 years old female with a history of hypertension, asthma, the patient was brought to the [facility] on 09/02/2024 with a chief company of altered mental status, I have seen and examined the patient, I have talked to her nurse and sitter, she is awake she was oriented to person, place She does not remember me at all Sitter: Very poor memory Socially appropriate, she follows commands Urinalysis, 09/02/2024: Unremarkable BUN/CR, 09/02/2024: WBC: 1, urine leukocyte esterase: Negative WBC/HB/PLT/MCV, 09/02/2024: 12.2/13.4/288/97.5 BMP, 09/02/2024: Unremarkable CMP, 09/03/2024: Unremarkable Glucose, 09/02/2024: 137 HGB A1c, 09/03/2024: For Lactic acid, 09/02/2024: 2.3/1.7 Vitamin B12, 09/03/2024:398 Lfolic acid, 09/03/2024: 35.84 TSH, 09/03/2024: 0.89 EEG, 09/04/24: Epileptiform discharge from the right hemisphere Chest x-ray, 09/02/2024: Pulmonary vascular congestion CT head, 09/02/2024: No evidence of acute intracranial abnormality vital signs Vital Sign Date Time Temp Pulse Resp B/P (MAP) Pulse Ox O2 Delivery O2 Flow Rate FiO2 09/11/24 21:00 98.3 62 18 109/60 (76) 96 98.3 09/11/24 18:58 Room Air* 0 21 Total Intake and Output 09/10/24 09/10/24 09/11/24 15:00 23:00 07:00 Intake Total 300 ml 1275 ml 1200 ml Output Total 1800 ml 1450 ml Balance 300 ml -525 ml -250 ml medications Current Medications Medications Dose Ordered Sig/Jaime Route Start Time Stop Time Status Last Admin Dose Admin Acetaminophen 650 mg Q6HP PRN PO 09/02/24 18:00 09/10/24 17:49 650 MG Nitroglycerin 0.4 mg Q5MINP PRN SL 09/02/24 18:00 Lorazepam 1 mg Q5MINP PRN IV 09/02/24 21:00 Lorazepam 1 mg ONCE PRN IV 09/02/24 21:00 Pantoprazole Sodium 40 mg DAILY IV 09/03/24 16:30 09/11/24 09:03 40 MG Ipratropium [place] 0.5 mg Q6HR NEB 09/04/24 00:00 09/11/24 18:55 0.5 MG Oxybutynin Chloride 5 mg BID PO 09/03/24 22:00 09/11/24 09:04 5 MG Levetiracetam 1,250 mg BID@0600,1800 PO 09/05/24 06:00 09/11/24 17:43 1,250 MG Linezolid 300 ml @ 150 mls/hr Q12HR IV 09/07/24 12:00 09/11/24 09:04 150 MLS/HR Atorvastatin Calcium 20 mg HS PO 09/08/24 22:00 09/10/24 22:13 20 MG Midodrine 10 mg TID@0600,1200,1800 PO 09/08/24 12:00 09/11/24 17:43 10 MG Ondansetron HCl 4 mg Q4HPRN PRN IV 09/08/24 14:30 Amiodarone HCl 200 mg HS PO 09/11/24 22:00 Apixaban 5 mg BID PO 09/10/24 22:00 09/11/24 09:04 5 MG objective General: the patient is well developed and nourished. No acute distress. MENTAL STATUS: Subjective SPEECH, LANGUAGE, HIGHER CORTICAL FUNCTION: No aphasia or dysarthria CRANIAL NERVES: Pupils are equal, round and reactive. EOMs full and conjugate. No nystagmus. Facial sensation intact in all three divisions bilaterally. Mandibular strength intact. Facial muscles symmetrical and strength intact. SENSATION: Okay to light touch and pinprick MOTOR: Normal tone in the upper and lower extremity. Normal muscle bulk. No fasciculations. No abnormal movements or posturing. Move the arms and legs with no problem REFLEXES: Deep tendon reflexes normal and symmetrical. No pathological reflexes. CEREBELLAR/COORDINATION: Deferred GAIT/STATION: deferred. laboratory and microbiology Laboratory Tests 09/11/24 10:30 Test 09/11/24 10:30 Range/Units Serum Glucose 110 H 74-106 mg/dL Problem List Altered mental status, improving Metabolic encephalopathy Status epileptics Subclinical seizure Lactic acidosis, resolved I think she is likely of her baseline mental status now Assessment/Plan Monitoring Supportive treatment Telemetry UDS EEG MR brain scan (stimulator is not MRI compatible) Keppra 1250 mg b.i.d. Ativan for seizure breakthrough Up to chair Physical therapy More recommendation per clinical course Social service on case This medical document was created using an electronic medical record system with [employer] dictation system. Although this document has been carefully reviewed, there may still be some phonetic and typographical errors. These areas are purely typographical due to imperfections of the software programs, and do not reflect any compromise in the patient's medical care. Prognosis poor Dietary Evaluation Review Comments: Improve and monitor PO intake to meet 75% of her needs Expected Outcomes/Goals: improved lab values Plan discussed with: Other TYREL SCOTT MD Sep 11, 2024 22:26
[2024-09-11] MEDS: AMIODARONE HCL 200 MG TAB PO SCH (22:41)
--- NOTE | 2024-09-11 23:49 | DVHPN2 ---
Progress Note - Dictate Date Seen: Sep 11, 2024 Medical Necessity Reason Pt with a Central, PICC or Fol: Yes The following are medically ne: Kimbrough Catheter Reason for kimbrough catheter: Strict I&O Subjective Patient seen and examined at bedside. Currently on room air. Overnight events reviewed. vital signs Vital Sign Date Time Temp Pulse Resp B/P (MAP) Pulse Ox O2 Delivery O2 Flow Rate FiO2 09/11/24 21:00 98.3 62 18 109/60 (76) 96 98.3 09/11/24 18:58 Room Air* 0 21 Total Intake and Output 09/10/24 09/10/24 09/11/24 15:00 23:00 07:00 Intake Total 300 ml 1275 ml 1200 ml Output Total 1800 ml 1450 ml Balance 300 ml -525 ml -250 ml medications Current Medications Medications Dose Ordered Sig/Jaime Route Start Time Stop Time Status Last Admin Dose Admin Acetaminophen 650 mg Q6HP PRN PO 09/02/24 18:00 09/10/24 17:49 650 MG Nitroglycerin 0.4 mg Q5MINP PRN SL 09/02/24 18:00 Lorazepam 1 mg Q5MINP PRN IV 09/02/24 21:00 Lorazepam 1 mg ONCE PRN IV 09/02/24 21:00 Pantoprazole Sodium 40 mg DAILY IV 09/03/24 16:30 09/11/24 09:03 40 MG Ipratropium [place] 0.5 mg Q6HR NEB 09/04/24 00:00 09/11/24 18:55 0.5 MG Oxybutynin Chloride 5 mg BID PO 09/03/24 22:00 09/11/24 22:40 5 MG Levetiracetam 1,250 mg BID@0600,1800 PO 09/05/24 06:00 09/11/24 17:43 1,250 MG Linezolid 300 ml @ 150 mls/hr Q12HR IV 09/07/24 12:00 09/11/24 22:41 150 MLS/HR Atorvastatin Calcium 20 mg HS PO 09/08/24 22:00 09/11/24 22:40 20 MG Midodrine 10 mg TID@0600,1200,1800 PO 09/08/24 12:00 09/11/24 17:43 10 MG Ondansetron HCl 4 mg Q4HPRN PRN IV 09/08/24 14:30 Amiodarone HCl 200 mg HS PO 09/11/24 22:00 09/11/24 22:41 200 MG Apixaban 5 mg BID PO 09/10/24 22:00 09/11/24 22:40 5 MG objective Gen.: Patient lying in bed in no apparent distress. On room air. Head: Normocephalic, atraumatic. Eyes: EOMI/PERRLA. Ears: Normal hearing. Normal anatomy. Neck/trachea: Trachea midline, supple. Nose: Normal external anatomy. Mouth: Moist mucous membranes. Chest: Decreased air entry bilaterally. No wheezing or rhonchi. Cardiovascular: Positive S1, positive S2. Regular rate and rhythm. Abdomen: Positive bowel sounds in all 4 quadrants. Soft, non-tender, non- distended. : Deferred. Rectal: Deferred. Skin: Warm, dry. Intact. Extremities: 2+ radial pulses bilaterally. No lower extremity edema. Neuro: Awake, alert, oriented x1. No gross motor or sensory deficits. Cranial nerves II through XII intact. Gait not assessed. laboratory and microbiology Laboratory Tests 09/11/24 10:30 Test 09/11/24 10:30 Range/Units Serum Glucose 110 H 74-106 mg/dL Assessment/Plan Impression: Acute hypoxic respiratory failure Chronic obstructive pulmonary disease, stable Acute metabolic encephalopathy Seizure disorder Events: Currently on room air Supplemental oxygen PRN Patient remains seizure-free. 1:1 sitter at bedside for safety. Head of bed elevation Aspiration precautions Continue on antiepileptic - Keppra Seizure precautions Neurology recs appreciated. Monitor blood pressure. On midodrine TID to keep BP at goal. Amiodarone PO On Eliquis Continue bronchodilators PRN Continue antibiotics Improved swallowing Physical therapy. Protonix for GI prophylaxis Disposition per hospitalist. Home health Labs and imaging reviewed. Rest of plan as noted below. Plan: Supplemental oxygen PRN Titrate to keep O2 sats above 92%. Continue bronchodilators PRN Continue antibiotics Incentive spirometry Neurology recs appreciated Seizure disorder- Follow up EEG. Antiepileptic Monitor renal function. Monitor electrolytes. Supplement as necessary. Monitor ins and outs. DVT prophylaxis. Prognosis: Guarded given patient's multiple co-morbidities. Rest of plan per hospitalist and other consultants. Thank you, ALEXA Grant, for allowing me to participate in this patient's care. Further recommendations will depend on the patient's clinical course. Please do not hesitate to contact me if you have any questions or concerns. This medical document was created using an electronic medical record system with [employer] dictation system. Although these documentations are being carefully reviewed, there may still be some phonetic and typographical changes. The errors are purely typographical, due to imperfection on the software program, and do not reflect any compromise in the patient's medical care. Dietary Evaluation Review Comments: Improve and monitor PO intake to meet 75% of her needs Expected Outcomes/Goals: improved lab values Plan discussed with: Patient, Other (BRIAN Montejo) BRUNO MCGRATH MD Sep 11, 2024 23:49
[2024-09-12] VITALS (13 sets, daily range): BP systolic 92–115; BP diastolic 57–60; PULSE 63–80; RESP 16–20; TEMP 97.5–98; O2SAT 93–100
--- NOTE | 2024-09-12 12:24 | DVHPN2 ---
Progress Note - Dictate Date Seen: Sep 12, 2024 Medical Necessity Reason Pt with a Central, PICC or Fol: Yes The following are medically ne: Kimbrough Catheter Reason for kimbrough catheter: Strict I&O vital signs Vital Sign Date Time Temp Pulse Resp B/P (MAP) Pulse Ox O2 Delivery O2 Flow Rate FiO2 09/12/24 10:00 72 17 97 Room Air* 0 21 09/12/24 09:00 98.0 100/57 (71) 98.0 Total Intake and Output 09/11/24 09/11/24 09/12/24 15:00 23:00 07:00 Intake Total 300 ml 990 ml 500 ml Output Total 900 ml 1200 ml Balance 300 ml 90 ml -700 ml medications Current Medications Medications Dose Ordered Sig/Jaime Route Start Time Stop Time Status Last Admin Dose Admin Acetaminophen 650 mg Q6HP PRN PO 09/02/24 18:00 09/10/24 17:49 650 MG Nitroglycerin 0.4 mg Q5MINP PRN SL 09/02/24 18:00 Lorazepam 1 mg Q5MINP PRN IV 09/02/24 21:00 Lorazepam 1 mg ONCE PRN IV 09/02/24 21:00 Pantoprazole Sodium 40 mg DAILY IV 09/03/24 16:30 09/12/24 10:02 40 MG Ipratropium [place] 0.5 mg Q6HR NEB 09/04/24 00:00 09/12/24 07:59 0.5 MG Oxybutynin Chloride 5 mg BID PO 09/03/24 22:00 09/12/24 10:02 5 MG Levetiracetam 1,250 mg BID@0600,1800 PO 09/05/24 06:00 09/12/24 05:41 1,250 MG Linezolid 300 ml @ 150 mls/hr Q12HR IV 09/07/24 12:00 09/12/24 10:02 150 MLS/HR Atorvastatin Calcium 20 mg HS PO 09/08/24 22:00 09/11/24 22:40 20 MG Midodrine 10 mg TID@0600,1200,1800 PO 09/08/24 12:00 09/12/24 12:04 10 MG Ondansetron HCl 4 mg Q4HPRN PRN IV 09/08/24 14:30 Amiodarone HCl 200 mg HS PO 09/11/24 22:00 09/11/24 22:41 200 MG Apixaban 5 mg BID PO 09/10/24 22:00 09/12/24 10:02 5 MG laboratory and microbiology Laboratory Tests 09/11/24 10:30 Test 09/11/24 10:30 Range/Units Serum Glucose 110 H 74-106 mg/dL Assessment/Plan Subjective Seen and examined at the bedside within telemetry. Maintaining sinus rhythm upon telemetry review. Hemodynamics remain stable. Chart reviewed. Echocardiogram reported: Technically good study. Sinus rhythm. Right atrial enlargement. Mild left atrial enlargement. Mild mitral annular calcification. EF of 55% with normal RV function. Dopplers unremarkable No pericardial effusion masses or vegetations. Originally presented with altered mental status/metabolic encephalopathy/seizure disorder. While being managed in the floor, was found to have new onset atrial fibrillation/flutter which responded to amiodarone. Has been started on Eliquis/amiodarone. Later was started on midodrine for pressure support Assessment Paroxysmal atrial fibrillation/flutter with RVR, new onset Acute hypoxic respiratory failure on home home oxygen Abnormal HS troponin, likely secondary to above Preserved LVEF of 55% per Echocardiogram Metabolic encephalopathy Hypertension, history of COPD, history of Seizure disorder Hyperlipidemia Plan/Recommendation Full anticoagulation for CVA prophylaxis On Eliquis 5mg twice daily On Amiodarone 200mg qhs Midodrine for blood pressure support Supplemental oxygen as warranted Atorvastatin 20mg daily Follow up Neurology recommendations Seizure precautions advised Proceed with close rate and rhythm surveillance Proceed with close hemodynamic surveillance Proceed with optimized blood pressure control Transfuse to sustain HGB level above 7.0 Sustain Magnesium level greater than 2.0 Sustain Potassium level greater than 4.0 Follow up renal function and electrolytes Cardiac-diaz, stable Management in telemetry Follow up outside sales consultant recommendations Will proceed to follow from a cardiac perspective Further recommendations per clinical progression All available diagnostic labs, EKG's, and images were personally reviewed Plan of care discussed with and agreed upon by patient / primary RN Prognosis: Guarded Thank you for allowing me to participate in the care of this patient. Further recommendations based on patients clinical course and progression, primary attending, and other consultants. Will continue to follow with primary attending. If you have any questions or concerns, please do not hesitate to contact me. A total of 55 minutes was spent reviewing the patient record, examining the patient, making a diagnostic and therapeutic plan, discussing this plan with medical personnel, following up on diagnostic studies and following the patient for clinical stability excluding any and all procedures. At least 50% of this time was spent in direct, [id number] contact. Dietary Evaluation Review Comments: Improve and monitor PO intake to meet 75% of her needs Expected Outcomes/Goals: improved lab values Plan discussed with: Other (nurse) LETI BLUE MD Sep 12, 2024 12:24
[2024-09-12] MEDS ORDERED: AMIO200T13 PO (15:43)
[2024-09-12] MEDS ORDERED: LINE1TAB6 PO (15:43)
[2024-09-12] MEDS ORDERED: KEP500T PO (15:43)
[2024-09-12] MEDS ORDERED: MID10T PO (15:43)
[2024-09-12] MEDS ORDERED: APIX5TAB PO (15:43)
[2024-09-12] MEDS ORDERED: ATOR20TA50 PO (15:43)
--- NOTE | 2024-09-12 15:44 | DVHDS2 ---
Discharge Summary Date of Admission Sep 02, 2024 at 17:58 Date of Discharge: Sep 12, 2024 Labs/Diagnostic Data: Laboratory Results Test 09/11/24 10:30 09/09/24 05:27 09/08/24 13:15 09/07/24 05:22 White Blood Count 6.8 10^3/uL (4.4-10.8) Red Blood Count 3.44 10^6/uL (4.0-5.20) Hemoglobin 11.3 g/dL (12.2-16.2) Hematocrit 33.4 % (36.0-46.0) Mean Corpuscular Volume 97.3 fL (80.0-100.0) Mean Corpuscular Hemoglobin 32.8 pg (28.0-32.0) Mean Corpuscular Hemoglobin Concent 33.7 g/dL (32.0-36.0) Red Cell Distribution Width 12.9 % (11.8-14.3) Platelet Count 302 10^3/uL (140-450) Mean Platelet Volume 7.6 fL (6.9-10.8) Neutrophils (%) (Auto) 62.2 % (37.0-80.0) Lymphocytes (%) (Auto) 22.6 % (10.0-50.0) Monocytes (%) (Auto) 9.4 % (0.0-12.0) Eosinophils (%) (Auto) 5.2 % (0.0-7.0) Basophils (%) (Auto) 0.6 % (0.0-2.0) Neutrophils # (Auto) 4.2 10 ^3/uL (1.6-8.6) Lymphocytes # (Auto) 1.5 10 ^3/uL (0.4-5.4) Monocytes # (Auto) 0.6 10 ^3/uL (0-1.3) Eosinophils # (Auto) 0.4 10 ^3/uL (0-0.8) Basophils # (Auto) 0 10 ^3/uL (0-0.2) Nucleated Red Blood Cells 0.0 % Sodium Level 139 mmol/L (136-145) Potassium Level 3.9 mmol/L (3.5-5.1) Chloride Level 104 mmol/L (98-107) Carbon Dioxide Level 28 mmol/L (20-31) Anion Gap 7 (5-15) Blood Urea Nitrogen 13 mg/dL (9-23) Creatinine 0.80 mg/dL (0.550-1.02) Glomerular Filtration Rate Calc 76 mL/min (>90) BUN/Creatinine Ratio 16.3 (10.0-20.0) Serum Glucose 110 mg/dL (74-106) Calcium Level 9.3 mg/dL (8.7-10.4) Phosphorus Level 3.4 mg/dL (2.4-5.1) Magnesium Level 2.1 mg/dL (1.6-2.6) Uric Acid 1.6 mg/dL (3.1-7.8) B-Type Natriuretic Peptide 27.02 pg/mL (0-100) Triglycerides Level 78 mg/dL (< 150) Cholesterol Level 171 mg/dL (< 200) LDL Cholesterol 107 mg/dL (< 100) HDL Cholesterol 57 mg/dL (40-59) Test 09/05/24 16:10 09/05/24 10:41 09/03/24 05:08 09/02/24 20:08 Troponin I High Sensitivity 47 ng/L (</=34) Total Bilirubin 0.3 mg/dL (0.2-1.0) Aspartate Amino Transferase (AST) 23 U/L (13-40) Alanine Aminotransferase (ALT) 12 U/L (7-40) Alkaline Phosphatase 62 U/L (46-116) Total Protein 6.3 g/dL (5.7-8.2) Albumin 4.1 g/dL (3.2-4.8) Hemoglobin A1c < 4.0 % A1C (<5.7) Vitamin B12 Level 398 pg/mL (211-911) Folic Acid 35.84 ng/mL (>5.38) Thyroid Stimulating Hormone (TSH) 0.89 uIU/mL (0.55-4.78) Free Thyroxine (T4) Calculated 0.80 ng/dL (0.89-1.76) POC Glucose 166 mg/dl (70-106) Test 09/02/24 17:57 09/02/24 15:21 Urine Color Yellow (Yellow) Urine Clarity Clear (Clear) Urine pH 6.0 (5.0-9.0) Urine Specific [place] 1.020 (1.001-1.035) Urine Protein Negative (Negative) Urine Ketones 2+ (Negative) Urine Blood Negative /uL (Negative) Urine Nitrite Negative (Negative) Urine Bilirubin Negative (Negative) Urine Urobilinogen Normal mg/dL (Negative) Urine Leukocyte Esterase Negative /uL (Negative) Urine RBC <1 /hpf (0 - 4) Urine Microscopic WBC < 1 /HPF (0-5) Urine Squamous Epithelial Cells Few /hpf (<5) Urine Bacteria None seen /hpf (None Seen) Urine Mucus Few (None Seen) Urine Glucose Normal mg/dL (Normal) Lactic Acid Level 1.7 mmol/L (0.4-2.0) Other Laboratory Tests 09/11/24 10:30 Brief Hx & Hospital Course: Patient is a 79-year-old female with a previous medical history of COPD and seizures was brought by EMS today with a CC of ALOC. Per staff at [facility] the patient lives at patient is normally A/O x 4 GCS 15 but was found today to only be alert and awake not oriented. Patient responds "yes" to every question being asked to her. EMS called family who states that something similar has happened to her in the past and it was due to UTI. Patient unable provide any other information at this time. While in the emergency department the patient was evaluated by the provider, As per provider: Labs, vital signs, and imagining monitored. The patient was admitted on September 02, 2024, for ALOC. The patient had acute metabolic encephalopathy and was found to have status epilepticus. The patient was seen by neurology, and seizure medications were adjusted. The patient had an abnormal EEG. The patient also had a UTI with Enterococcus species, which had some resistance to antibiotics. The patient was then transitioned to Zyvox. The patient's mentation improved; however, she had very limited memory, which, according to the patient's caregiver and niece, was not normal for the patient. The patient developed AFib with RVR. The patient was seen by cardiology and was placed on full-dose anticoagulation as well as amiodarone. The patient's heart rate was then controlled as medications were titrated. The patient lived at an assisted living facility. The patient was cleared for discharge by neurology; however, according to her niece, she was not safe to discharge home due to poor memory. The patient will follow up with Dr. Nagel outpatient to rule out dementia as a source for memory deficit. She was discharged home on oral Zyvox for her UTI. She was discharged home on Eliquis and amiodarone for AFib. The patient was sent home with medications for anti-epileptics for her seizure activity. Her Keppra dose was increased to 1250 mg p.o BID. She was instructed to follow up with her PCP in one week. The patient received proper medical treatment and medications. Vital signs, Imaging and Laboratory Work was monitored. All consults recommendations were followed as provided. There were no complaints or new complaints upon discharge, all questions and concerns were answered. Patient was advised to return to the ER or call 911 if any headaches, dizziness, shortness of breath, chest pain, bleeding, fevers, or worsening of medical condition. Patient/Family was counseled about treatment plan, medications, possible side effects, patientverbalized understanding. All questions were answered to the best of my ability. The patient symptoms improved and they are okay to be DC. Condition at Discharge: Good Final Diagnosis/Problems List ALOC Metabolic encephalopathy Status epileptics Subclinical seizure Acute cystitis without hematuria Lactic acidosis most likely from seizure A-fib with RVR Discharge Disposition: Home Discharge Instruct/Medications Diet: Cardiac 2g Na,low cholest Activity: No Restrictions, As Tolerated Follow Up/Referral: pcp 1 week Discharge Statement: "Patient was advised to return to the ER or call 911 if any headaches, dizziness, shortness of breath, chest pain, abdominal pain, bleeding, fevers, or worsening of medical condition. Patient was counseled about treatment plan, medications, possible side effects, patientverbalized understanding. All questions were answered to the best of my ability. This discharge took greater then 30 minutes in planning, reviewing documentation, counseling the patient, and discussing with other team members." ASSESSMENT ASSESSMENT Assessment Status epilepticus Atrial Fibrillation UTI Metabolic encephalopathy LIBBY GLASER NP Sep 12, 2024 15:44
--- NOTE | 2024-09-12 20:57 | DVHPN2 ---
Progress Note - Dictate Date Seen: Sep 12, 2024 Medical Necessity Reason Pt with a Central, PICC or Fol: Yes The following are medically ne: Kimbrough Catheter Reason for kimbrough catheter: Strict I&O Subjective Patient seen and examined at bedside. Remains on room air. Overnight events reviewed. vital signs Vital Sign Date Time Temp Pulse Resp B/P (MAP) Pulse Ox O2 Delivery O2 Flow Rate FiO2 09/12/24 17:00 97.5 80 20 92/59 (70) 93 97.5 09/12/24 12:33 Room Air 0.0 09/12/24 12:33 21 Total Intake and Output 09/11/24 09/11/24 09/12/24 14:59 22:59 06:59 Intake Total 300 ml 990 ml 500 ml Output Total 900 ml 1200 ml Balance 300 ml 90 ml -700 ml objective Gen.: Patient lying in bed in no apparent distress. On room air. Head: Normocephalic, atraumatic. Eyes: EOMI/PERRLA. Ears: Normal hearing. Normal anatomy. Neck/trachea: Trachea midline, supple. Nose: Normal external anatomy. Mouth: Moist mucous membranes. Chest: Decreased air entry bilaterally. No wheezing or rhonchi. Cardiovascular: Positive S1, positive S2. Regular rate and rhythm. Abdomen: Positive bowel sounds in all 4 quadrants. Soft, non-tender, non- distended. : Deferred. Rectal: Deferred. Skin: Warm, dry. Intact. Extremities: 2+ radial pulses bilaterally. No lower extremity edema. Neuro: Awake, alert, oriented x1. No gross motor or sensory deficits. Cranial nerves II through XII intact. Gait not assessed. laboratory and microbiology Laboratory Tests 09/11/24 10:30 Test 09/11/24 10:30 Range/Units Serum Glucose 110 H 74-106 mg/dL Assessment/Plan Impression: Acute hypoxic respiratory failure Chronic obstructive pulmonary disease, stable Acute metabolic encephalopathy Seizure disorder Events: Remains on room air Supplemental oxygen PRN Patient remains seizure-free. 1:1 sitter at bedside for safety. Head of bed elevation Aspiration precautions Continue on antiepileptic - Keppra Seizure precautions Monitor blood pressure. On midodrine TID to keep BP at goal. On Eliquis Continue bronchodilators PRN Continue antibiotics Incentive spirometry Improved swallowing Physical therapy. Protonix for GI prophylaxis Patient is stable for discharge from the pulmonary standpoint. Disposition per hospitalist. Home health Labs and imaging reviewed. Rest of plan as noted below. Plan: Supplemental oxygen PRN Titrate to keep O2 sats above 92%. Continue bronchodilators PRN Continue antibiotics Incentive spirometry Neurology recs appreciated Seizure disorder- Follow up EEG. Antiepileptic Monitor renal function. Monitor electrolytes. Supplement as necessary. Monitor ins and outs. DVT prophylaxis. Prognosis: Guarded given patient's multiple co-morbidities. Rest of plan per hospitalist and other consultants. Thank you, ALEXA Grant, for allowing me to participate in this patient's care. Further recommendations will depend on the patient's clinical course. Please do not hesitate to contact me if you have any questions or concerns. This medical document was created using an electronic medical record system with [employer] dictation system. Although these documentations are being carefully reviewed, there may still be some phonetic and typographical changes. The errors are purely typographical, due to imperfection on the software program, and do not reflect any compromise in the patient's medical care. Dietary Evaluation Review Comments: Improve and monitor PO intake to meet 75% of her needs Expected Outcomes/Goals: improved lab values Plan discussed with: Patient, Other (BRIAN Collins) BRUNO MCGRATH MD Sep 12, 2024 20:57
== END 2024-09-12 17:40 | disposition home or self-care (01) | DRG 100 ==
LOC: EDBD 12:02 → ER 12:10 → TELE 17:58 → TELE-CENTR 18:02
PROVIDERS: ADMIT Nurse Practitioner; ATTEND Nurse Practitioner
DX: G40.801 Other epilepsy, not intractable, with status epilepticus (principal); J96.01 Acute respiratory failure with hypoxia; N30.00 Acute cystitis without hematuria; E87.20 Acidosis, unspecified; I48.92 Unspecified atrial flutter; Z16.20 Resistance to unspecified antibiotic; I48.0 Paroxysmal atrial fibrillation; E78.5 Hyperlipidemia, unspecified; R04.0 Epistaxis; I10 Essential (primary) hypertension; J44.89 Other specified chronic obstructive pulmonary disease; B95.2 Enterococcus as the cause of diseases classified elsewhere; I34.81 Nonrheumatic mitral (valve) annulus calcification; Z99.81 Dependence on supplemental oxygen; Z96.659 Presence of unspecified artificial knee joint; Z79.899 Other long term (current) drug therapy
CPT/HCPCS: 36415; 70450; 71045; 73560; 80048; 80053; 80061; 81001; 82607; 82746; 82962; 83036; 83605; 83735; 83880; 84100; 84439; 84443; 84484; 84550; 85025; 87040; 87086; 87088; 87186; 93005; 93306; 94640; 95819; 96365; 96368; 97110; 97116; 97163; 97530; 99291; G0378; J2470